=== PATIENT | female | born 1935 | race Caucasian/White ===

== ENCOUNTER 2018-07-04 15:03 | Observation (INO) ==
--- NOTE | 2018-07-04 15:26 | Emergency Department Note ---
Disposition Clinical Impression: Dizzy, Left leg pain, Left arm weakness Disposition: Admitted As Inpatient Condition: Fair Referrals: Timmy Isabel MD [Primary Care Provider] - Forms: ED Satisfaction Letter, Work/School Release Time of Disposition: 18:33 Dizziness HPI - General Chief Complaint: ED General Medical Stated Complaint: left side pain Time Seen by Provider: 07/04/18 15:20 Source: patient, EMS Mode of arrival: EMS Limitations: no limitations Nursing Notes Reviewed: Yes Vital Signs Reviewed: Yes - History of Present Illness HPI Narrative: 82-year-old female just emergency department complaining of left leg pain as we ll as left arm numbness and dizziness. Said these all started last night and has progressed throughout the day. Patient is normally bedbound is unable to walk normally does have history of stroke with right-sided deficits. She does have history of fibromyalgia as well as chronic pain. She normal takes Vicodin. Says she took one today that did not help with the left leg pain. Patient is been no changes in medications. She is currently dizziness as she spinning. Said it was coming gradual in onset beginning yesterday was not sudden in onset. She has noted no fevers or nausea or vomiting. Just complaining of generalized pain in dizziness. She describes the pain in her leg as 8 out of 10 dull throbbing ache not radiating and nothing makes it better. Movement does make it worse. Otherwise has no other completely to this time including no headaches, blurry vision, neck pain, back pain, fevers, chills, nausea, vomiting, chest pain, shortness of breath, abdominal pain, change in bowel monitor, pain with urination, pain or tingling going down the arms or legs or generalized weakness. - Related Data Home Medications Medication Instructions Recorded Confirmed Amlodipine [Norvasc] 5 mg PO DAILY 05/10/15 12/01/16 Docusate [Colace] 100 mg PO DAILY PRN 11/02/16 12/01/16 Baclofen [Lioresal] 10 mg PO BID 12/01/16 12/01/16 Celecoxib [Celebrex] 100 mg PO DAILY 12/01/16 12/01/16 Cholecalciferol (D-3) [Vitamin D] 5,000 unit PO BID 12/01/16 12/01/16 Cyclobenzaprine HCl 10 mg PO BID PRN 12/01/16 12/01/16 DULoxetine [Cymbalta] 30 mg PO DAILY 12/01/16 12/01/16 Esomeprazole Magnesium [Nexium] 40 mg PO DAILY 12/01/16 12/01/16 Levothyroxine [Synthroid] 150 mcg PO DAILY 12/01/16 12/01/16 PARoxetine HCl [Paroxetine HCl] 10 mg PO DAILY 12/01/16 12/01/16 Pregabalin [Lyrica] 150 mg PO BID 12/01/16 12/01/16 Solifenacin Succinate [Vesicare] 5 mg PO DAILY 12/01/16 12/01/16 Hydrocodone Bitartrate [Zohydro ER] 06/09/18 Previous Rx's Medication Instructions Recorded Aspirin 81 mg PO DAILY tab.chew 11/06/16 Lisinopril [Zestril] 20 mg PO DAILY #30 tablet 11/16/16 Allergies Allergy/AdvReac Type Severity Reaction Status Date / Time Iodinated Contrast- Oral and Allergy See Verified 11/02/16 12:33 IV Dye Comments [Iodinated Contrast Media - Oral and] All systems ED: reviewed and negative except as stated. Review of Systems: As Per HPI Past Medical History - Past Medical History Attestation: Yes The following information was validated with the patient. Source: patient Medical history: Reports: CHF, CVA, GERD, hypertension, osteoporosis, thyroid disease Surgical history: Reports: hysterectomy, other Psychiatric history: Reports: no psych history - Social History Smoking Status: Current every day smoker Smokeless Tobacco Status: No Alcohol use: Reports: none Drug use: Reports: none Physical Exam - General Limitations: no limitations General appearance: alert, in no apparent distress - Head Head exam: atraumatic, normocephalic, normal inspection - Eye Eye exam: Present: normal appearance, PERRL, EOMI - ENT ENT exam: normal exam, normal oropharynx, mucous membranes moist - Neck Neck exam: Present: normal inspection, full ROM, trachea midline - Chest Chest inspection: Present: normal inspection, symmetric chest wall rise - Respiratory Respiratory exam: Present: normal lung sounds bilaterally - Cardiovascular Cardiovascular exam: Present: regular rate, normal rhythm, normal heart sounds - Abdominal Exam Abdominal exam: Present: soft, Non-Tender, normal bowel sounds. Absent: tenderness, distention, guarding, rebound, rigidity - Extremities Exam Extremities exam: Present: normal inspection, full ROM, tenderness (Tenderness while palpating the left lower leg all a from the hip down to the foot.). Absent: pedal edema - Expanded Lower Extremity Exam Neurovascular/Tendon exam: Absent: motor deficit (Patient is able to move her left leg does not want to she says any movement makes it worse.), sensory de ficit, tendon deficit - Back Exam Back exam: Present: normal inspection, full ROM. Absent: tenderness - Neurological Exam Neurological exam: Present: alert, oriented X3, CN II-XII intact - Expanded Neurological Exam Patient oriented to: Present: person, place, time Speech: Present: fluid speech Cranial nerves: EOM function (II, III, IV, ): Normal, facial sensation (V): Normal, facial palsy (VII): Normal, spinal accessory function (XI): Normal, tongue deviation (XII): Normal Cerebellar function: finger to nose: Normal Motor strength - LUE: 3/5 Motor strength - RUE: 3/5 Motor strength - LLE: 3/5 Motor strength - RLE: 3/5 Upper motor neuron exam: melissa neglect: Absent bilaterally, pronator drift: Absent bilaterally Sensory exam upper extremity: light touch: Normal Sensory exam lower extremity: light touch: Normal Coma Scale Eye Opening: Spontaneous Coma Scale Motor Response: Obeys Commands Coma Scale Verbal Response: Oriented Coma Scale Total: 15 - Skin Skin exam: Present: warm, dry, intact, normal color Course Course Narrative: Patient has NIH is 0. We will get CT of her head as well as get a DVT study of her left leg I will get x-rays of the pelvis, femur, tib-fib. There is no noticeable deformities patient is alert and oriented 3. We have basic labs including CBC, BMP, troponin as well as an EKG and chest x-ray. Patient okay with this plan. Vital Signs Temperature 97.7 F 07/04/18 15:06 Pulse Rate 86 07/04/18 15:06 Respiratory Rate 16 07/04/18 15:06 Blood Pressure 125/69 07/04/18 15:06 O2 Sat by Pulse Oximetry 97 07/04/18 15:06 Temperature 97.7 F 07/04/18 15:06 Pulse Rate 86 07/04/18 15:06 Respiratory Rate 16 07/04/18 15:06 Blood Pressure 125/69 07/04/18 15:06 O2 Sat by Pulse Oximetry 97 07/04/18 15:06 Oxygen Delivery Oxygen Delivery Room Air Dizziness - MDM Narrative Medical decision making narrative: Patient here for dizziness as well as left leg pain. To get DVT study that was negative for blood clot in the left leg. Did get a head CT which only had chr onic changes. There was note of hydrocephalus but this was not change compared to old one. All labs are within normal limits there is no acute changes. No acute electrolyte abnormalities. Patient was given Tylenol for pain which did help take the pain away in the left leg. Patient NIH is 0. There were no stroke symptoms at this time patient was outside the window having a stroke alert. So we did not call them. Patient needs to be admitted for further stroke management and workup. Patient will be admitted to the hospitalist I spoke with Dr. Yi who agreed to admit the patient to their service for patient's admitted in stable condition. Chest X-Ray 07/04/18 15:21 IMPRESSION: No acute cardiopulmonary disease or significant interval change from prior study 12/01/2016. D/ / Christophe Agosto / Christophe Agosto Interpreting Provider: Christophe Agosto Head CT 07/04/18 15:21 IMPRESSION: 1. Ventriculomegaly, not appreciably changed dating back to 05/24/2012. This may be related to involutional changes, however, normal pressure hydrocephalus cannot be excluded. 2. Chronic microvascular white matter ischemic disease, unchanged. 3. No acute intracranial abnormality. 4. Chronic lacunar infarct along the right paramidline of the [place]. D/ / 07/04/2018 18:06:01 Alex George MD / [facility] Interpreting Provider: Alex George MD Femur X-Ray 07/04/18 15:24 IMPRESSION: 1. No evidence of acute fracture involving the pelvis, left femur, and left tibia and fibula. 2. Osteopenia. 3. No appreciable soft tissue swelling. 4. Given the degree of osteopenia, nondisplaced fractures may be radiographically occult. If pain or concern for hip fracture persists, consider MR imaging. D/ : / 07/04/2018 16:05:41 Alex George MD / [facility] Interpreting Provider: Alex George MD Pelvis X-Ray 07/04/18 15:24 IMPRESSION: 1. No evidence of acute fracture involving the pelvis, left femur, and left tibia and fibula. 2. Osteopenia. 3. No appreciable soft tissue swelling. 4. Given the degree of osteopenia, nondisplaced fractures may be radiographically occult. If pain or concern for hip fracture persists, consider MR imaging. D/ : / 07/04/2018 16:05:41 Alex George MD / [facility] Interpreting Provider: Alex George MD Tibia/Fibula X-Ray 07/04/18 15:24 IMPRESSION: 1. No evidence of acute fracture involving the pelvis, left femur, and left tibia and fibula. 2. Osteopenia. 3. No appreciable soft tissue swelling. 4. Given the degree of osteopenia, nondisplaced fractures may be radiographically occult. If pain or concern for hip fracture persists, consider MR imaging. D/ /04/2018 16:05:41 Alex George MD / [facility] Interpreting Provider: Alex George MD - Medical Records Medical records reviewed: Yes I reviewed the patient's medical records. - Lab Data Lab results reviewed: Yes I reviewed the patient's lab results. Result diagrams: 07/04/18 16:02 07/04/18 16:02 Lab Results 07/04/18 07/04/18 07/04/18 Range/Units 16:02 16:02 16:02 WBC 14.6 H (4.3-11.1) K/mcL RBC 4.37 (3.82-4.97) M/mcL Hgb 12.0 (11.5-15.4) g/dL Hct 36.1 (35.3-44.9) % MCV 82.6 L (83.0-100.0) fL MCH 27.5 L (28.0-33.3) pg MCHC 33.2 (31.6-35.5) g/dL RDW 13.5 (11.5-14.5) % Plt Count 265 (140-400) K/mcL MPV 11.5 (9.4-12.4) fL Immature Gran % 0.5 (0-4) % Seg Neutrophils % 61.0 % Lymphocytes % 30.7 % Monocytes % 6.2 % Eosinophils % 1.1 % Basophils % 0.5 % Neutrophils # 8.9 (1.6-8.9) K/mcL Lymphocytes # 4.5 (0.6-4.6) K/mcL Monocytes # 0.9 (0.0-1.3) K/mcL Eosinophils # 0.2 (0.0-0.6) K/mcL Basophils # 0.1 (0.0-0.2) K/mcL PT 11.3 (9.4-12.1) Seconds INR 1.0 Sodium 131 L (136-145) mEq/L Potassium 4.4 (3.5-5.1) mEq/L Chloride 96 L (98-107) mEq/L Carbon Dioxide 30 H (23-29) mEq/L BUN 12 (8-23) mg/dL Creatinine 1.05 (0.60-1.20) mg/dL Est GFR ( Amer) > 60 (> 60) Est GFR (Non-Af Amer) 50 L (> 60) BUN/Creatinine Ratio 11 (6-26) Glucose 98 (70-105) mg/dL Calculated Osmolality 272 L (280-300) Calcium 9.9 (8.6-10.3) mg/dL Troponin I < 0.03 (< 0.04) ng/mL Urine Color (Yellow) Urine Clarity (Clear) Urine pH (5.0-8.0) pH Units Ur Specific [place] (1.010-1.025) Urine Protein (Neg-Trace) mg/dL Urine Glucose (UA) (Normal) mg/dL Urine Ketones (Negative) mg/dL Urine Blood (Negative) Urine Nitrite (Negative) Urine Bilirubin (Negative) Urine Urobilinogen (Normal) mg/dL Ur Leukocyte Esterase (Negative) Ur Culture Indicated? (NO) 07/04/18 Range/Units 16:18 WBC (4.3-11.1) K/mcL RBC (3.82-4.97) M/mcL Hgb (11.5-15.4) g/dL Hct (35.3-44.9) % MCV (83.0-100.0) fL MCH (28.0-33.3) pg MCHC (31.6-35.5) g/dL RDW (11.5-14.5) % Plt Count (140-400) K/mcL MPV (9.4-12.4) fL Immature Gran % (0-4) % Seg Neutrophils % % Lymphocytes % % Monocytes % % Eosinophils % % Basophils % % Neutrophils # (1.6-8.9) K/mcL Lymphocytes # (0.6-4.6) K/mcL Monocytes # (0.0-1.3) K/mcL Eosinophils # (0.0-0.6) K/mcL Basophils # (0.0-0.2) K/mcL PT (9.4-12.1) Seconds INR Sodium (136-145) mEq/L Potassium (3.5-5.1) mEq/L Chloride (98-107) mEq/L Carbon Dioxide (23-29) mEq/L BUN (8-23) mg/dL Creatinine (0.60-1.20) mg/dL Est GFR ( Amer) (> 60) Est GFR (Non-Af Amer) (> 60) BUN/Creatinine Ratio (6-26) Glucose (70-105) mg/dL Calculated Osmolality (280-300) Calcium (8.6-10.3) mg/dL Troponin I (< 0.04) ng/mL Urine Color Yellow (Yellow) Urine Clarity Clear (Clear) Urine pH 6.5 (5.0-8.0) pH Units Ur Specific [place] 1.014 (1.010-1.025) Urine Protein Negative (Neg-Trace) mg/dL Urine Glucose (UA) Normal (Normal) mg/dL Urine Ketones Negative (Negative) mg/dL Urine Blood Negative (Negative) Urine Nitrite Negative (Negative) Urine Bilirubin Negative (Negative) Urine Urobilinogen Normal (Normal) mg/dL Ur Leukocyte Esterase Negative (Negative) Ur Culture Indicated? NO (NO) - Radiology Data Radiology results reviewed: Yes I reviewed the patient's radiology results. - EKG Data EKG attestation: Yes I reviewed and interpreted this EKG. EKG results narrative: EKG done at 1513 review myself and the attending shows sinus rhythm at a rate of 90, MI interval 164, QRS 137, QTC 441. There is no acute ST changes no acute T- wave changes no other signs of ischemia. No hypertrophy, harsh and, heart block. There are PVCs. No WPW/Brugada/HOCM. EKG is unchanged compared with old one done 12/01/16. NIH Stroke Scale - Level of Consciousness LOC: Alert - LOC Questions LOC Questions: Answers both correctly - LOC Commands LOC Commands: Performs both correctly - Best Gaze Best Gaze: Normal - Visual Visual: No visual loss - Facial Palsy Facial Palsy: Normal - Motor Arms Motor Arm-Left: No drift for 10 seconds Motor Arm-Right: No drift for 10 seconds - Motor Legs Motor Leg-Left: No drift for 5 seconds Motor Leg-Right: No drift for 5 seconds - Limb Ataxia Limb Ataxia: Normal, No Ataxia - Sensory Sensory: Normal - Best Language Best Language: No aphasia - Dysarthria Dysarthria: Normal - Extinction and Inattention Extinction and Inattention: Normal - NIHSS Total Score NIHSS Total Score: 0
--- NOTE | 2018-07-04 15:59 | Emergency Department Note ---
Disposition Clinical Impression: Dizzy, Left leg pain, Left arm weakness Disposition: Admitted As Inpatient Condition: Fair Referrals: Timmy Isabel MD [Primary Care Provider] - Forms: ED Satisfaction Letter, Work/School Release Time of Disposition: 18:40 General Adult HPI - General Chief complaint: ED General Medical Stated complaint: left side pain Time Seen by Provider: 07/04/18 15:20 Source: patient Limitations: no limitations - History of Present Illness Pain Scale: 4 - Related Data Home Medications Medication Instructions Recorded Confirmed Amlodipine [Norvasc] 5 mg PO DAILY 05/10/15 12/01/16 Docusate [Colace] 100 mg PO DAILY PRN 11/02/16 12/01/16 Baclofen [Lioresal] 10 mg PO BID 12/01/16 12/01/16 Celecoxib [Celebrex] 100 mg PO DAILY 12/01/16 12/01/16 Cholecalciferol (D-3) [Vitamin D] 5,000 unit PO BID 12/01/16 12/01/16 Cyclobenzaprine HCl 10 mg PO BID PRN 12/01/16 12/01/16 DULoxetine [Cymbalta] 30 mg PO DAILY 12/01/16 12/01/16 Esomeprazole Magnesium [Nexium] 40 mg PO DAILY 12/01/16 12/01/16 Levothyroxine [Synthroid] 150 mcg PO DAILY 12/01/16 12/01/16 PARoxetine HCl [Paroxetine HCl] 10 mg PO DAILY 12/01/16 12/01/16 Pregabalin [Lyrica] 150 mg PO BID 12/01/16 12/01/16 Solifenacin Succinate [Vesicare] 5 mg PO DAILY 12/01/16 12/01/16 Hydrocodone Bitartrate [Zohydro ER] 06/09/18 Previous Rx's Medication Instructions Recorded Aspirin 81 mg PO DAILY tab.chew 11/06/16 Lisinopril [Zestril] 20 mg PO DAILY #30 tablet 11/16/16 Allergies Allergy/AdvReac Type Severity Reaction Status Date / Time Iodinated Contrast- Oral and Allergy See Verified 11/02/16 12:33 IV Dye Comments [Iodinated Contrast Media - Oral and] Past Medical History - Past Medical History Medical history: Reports: CHF, CVA, GERD, hypertension, osteoporosis, thyroid disease Surgical history: Reports: hysterectomy, other Psychiatric history: Reports: no psych history - Social History Smoking Status: Current every day smoker Smokeless Tobacco Status: No Alcohol use: Reports: none Drug use: Reports: none Physical Exam - General Limitations: no limitations General appearance: alert, in no apparent distress Course Vital Signs Temperature 97.7 F 07/04/18 15:06 Pulse Rate 86 07/04/18 15:06 Respiratory Rate 16 07/04/18 15:06 Blood Pressure 125/69 07/04/18 15:06 O2 Sat by Pulse Oximetry 97 07/04/18 15:06 Temperature 97.7 F 07/04/18 15:06 Pulse Rate 86 07/04/18 15:06 Respiratory Rate 16 07/04/18 15:06 Blood Pressure 125/69 07/04/18 15:06 O2 Sat by Pulse Oximetry 97 07/04/18 15:06 Oxygen Delivery Oxygen Delivery Room Air Medical Decision Making - Lab Data Result diagrams: 07/04/18 16:02 07/04/18 16:02 Lab Results 07/04/18 07/04/18 07/04/18 Range/Units 16:02 16:02 16:02 WBC 14.6 H (4.3-11.1) K/mcL RBC 4.37 (3.82-4.97) M/mcL Hgb 12.0 (11.5-15.4) g/dL Hct 36.1 (35.3-44.9) % MCV 82.6 L (83.0-100.0) fL MCH 27.5 L (28.0-33.3) pg MCHC 33.2 (31.6-35.5) g/dL RDW 13.5 (11.5-14.5) % Plt Count 265 (140-400) K/mcL MPV 11.5 (9.4-12.4) fL Immature Gran % 0.5 (0-4) % Seg Neutrophils % 61.0 % Lymphocytes % 30.7 % Monocytes % 6.2 % Eosinophils % 1.1 % Basophils % 0.5 % Neutrophils # 8.9 (1.6-8.9) K/mcL Lymphocytes # 4.5 (0.6-4.6) K/mcL Monocytes # 0.9 (0.0-1.3) K/mcL Eosinophils # 0.2 (0.0-0.6) K/mcL Basophils # 0.1 (0.0-0.2) K/mcL PT 11.3 (9.4-12.1) Seconds INR 1.0 Sodium 131 L (136-145) mEq/L Potassium 4.4 (3.5-5.1) mEq/L Chloride 96 L (98-107) mEq/L Carbon Dioxide 30 H (23-29) mEq/L BUN 12 (8-23) mg/dL Creatinine 1.05 (0.60-1.20) mg/dL Est GFR ( Amer) > 60 (> 60) Est GFR (Non-Af Amer) 50 L (> 60) BUN/Creatinine Ratio 11 (6-26) Glucose 98 (70-105) mg/dL Calculated Osmolality 272 L (280-300) Calcium 9.9 (8.6-10.3) mg/dL Troponin I < 0.03 (< 0.04) ng/mL Urine Color (Yellow) Urine Clarity (Clear) Urine pH (5.0-8.0) pH Units Ur Specific [place] (1.010-1.025) Urine Protein (Neg-Trace) mg/dL Urine Glucose (UA) (Normal) mg/dL Urine Ketones (Negative) mg/dL Urine Blood (Negative) Urine Nitrite (Negative) Urine Bilirubin (Negative) Urine Urobilinogen (Normal) mg/dL Ur Leukocyte Esterase (Negative) Ur Culture Indicated? (NO) 07/04/18 Range/Units 16:18 WBC (4.3-11.1) K/mcL RBC (3.82-4.97) M/mcL Hgb (11.5-15.4) g/dL Hct (35.3-44.9) % MCV (83.0-100.0) fL MCH (28.0-33.3) pg MCHC (31.6-35.5) g/dL RDW (11.5-14.5) % Plt Count (140-400) K/mcL MPV (9.4-12.4) fL Immature Gran % (0-4) % Seg Neutrophils % % Lymphocytes % % Monocytes % % Eosinophils % % Basophils % % Neutrophils # (1.6-8.9) K/mcL Lymphocytes # (0.6-4.6) K/mcL Monocytes # (0.0-1.3) K/mcL Eosinophils # (0.0-0.6) K/mcL Basophils # (0.0-0.2) K/mcL PT (9.4-12.1) Seconds INR Sodium (136-145) mEq/L Potassium (3.5-5.1) mEq/L Chloride (98-107) mEq/L Carbon Dioxide (23-29) mEq/L BUN (8-23) mg/dL Creatinine (0.60-1.20) mg/dL Est GFR ( Amer) (> 60) Est GFR (Non-Af Amer) (> 60) BUN/Creatinine Ratio (6-26) Glucose (70-105) mg/dL Calculated Osmolality (280-300) Calcium (8.6-10.3) mg/dL Troponin I (< 0.04) ng/mL Urine Color Yellow (Yellow) Urine Clarity Clear (Clear) Urine pH 6.5 (5.0-8.0) pH Units Ur Specific [place] 1.014 (1.010-1.025) Urine Protein Negative (Neg-Trace) mg/dL Urine Glucose (UA) Normal (Normal) mg/dL Urine Ketones Negative (Negative) mg/dL Urine Blood Negative (Negative) Urine Nitrite Negative (Negative) Urine Bilirubin Negative (Negative) Urine Urobilinogen Normal (Normal) mg/dL Ur Leukocyte Esterase Negative (Negative) Ur Culture Indicated? NO (NO) Attestation Statement - Attestation Attestation: I examined this patient and my medical decision-making was reviewed with the Resident Physician. I agree with the documented findings, disposition and treatment plan as described except to the extent set forth below. Patient presents to the ED if she compared to left leg pain. Left arm weakness. Dizziness. Left leg pain is diffuse. She cannot localize it. She woke up like that today. She denies injury. She is bedbound at home. She had left arm weakness this morning but states that is resolved. She is also complaining of some dizziness and feels like she is spinning. On exam she is awake and alert in no distress. She is oriented. She has diffuse slight tenderness with no swelling or ecchymosis. Lungs are clear. Neuro exam is unremarkable. Her NIH is 0. Plan. Imaging of the leg with ultrasound. Basic labs. CT head. CT with nothing acute. No UTI. Patient is admitted for the dizziness and left arm weakness with concerns for TIA. Chest X-Ray 07/04/18 15:21 IMPRESSION: No acute cardiopulmonary disease or significant interval change from prior study 12/01/2016. D/ / Christophe Agosto / Christophe Agosto Interpreting Provider: Christophe Agosto Femur X-Ray 07/04/18 15:24 IMPRESSION: 1. No evidence of acute fracture involving the pelvis, left femur, and left tibia and fibula. 2. Osteopenia. 3. No appreciable soft tissue swelling. 4. Given the degree of osteopenia, nondisplaced fractures may be radiographically occult. If pain or concern for hip fracture persists, consider MR imaging. D/ : / 07/04/2018 16:05:41 Alex George MD / [facility] Interpreting Provider: Alex George MD Pelvis X-Ray 07/04/18 15:24 IMPRESSION: 1. No evidence of acute fracture involving the pelvis, left femur, and left tibia and fibula. 2. Osteopenia. 3. No appreciable soft tissue swelling. 4. Given the degree of osteopenia, nondisplaced fractures may be radiographically occult. If pain or concern for hip fracture persists, consider MR imaging. D/ /04/2018 16:05:41 Alex George MD / [facility] Interpreting Provider: Alex George MD Tibia/Fibula X-Ray 07/04/18 15:24
[2018-07-04] MEDS ORDERED: Acetaminophen 325 MG TABLET PO ONE (16:13)
[2018-07-04 16:25] LABS: Basophils # 0.1 K/mcL (0.0-0.2); Basophils % 0.5 %; Eosinophils # 0.2 K/mcL (0.0-0.6); Eosinophils % 1.1 %; Hematocrit 36.1 % (35.3-44.9); Immature Granulocytes % 0.5 % (0-4); Lymphocytes # 4.5 K/mcL (0.6-4.6); Lymphocytes % 30.7 %; Mean Corpuscular HGB Conc 33.2 g/dL (31.6-35.5); Mean Corpuscular Hemoglobin 27.5 pg (28.0-33.3); Mean Corpuscular Volume 82.6 fL (83.0-100.0); Mean Platelet Volume 11.5 fL (9.4-12.4); Monocytes # 0.9 K/mcL (0.0-1.3); Monocytes % 6.2 %; Neutrophils # 8.9 K/mcL (1.6-8.9); Platelet Count 265 K/mcL (140-400); Red Blood Count 4.37 M/mcL (3.82-4.97); Red Cell Distribution Width 13.5 % (11.5-14.5)
[2018-07-04 16:33] LABS: Prothrombin Time 11.3 Seconds (9.4-12.1)
[2018-07-04 16:46] LABS: BUN/Creatinine Ratio 11 (6-26); Blood Urea Nitrogen 12 mg/dL (8-23); Calcium 9.9 mg/dL (8.6-10.3); Carbon Dioxide 30 mEq/L (23-29); Chloride 96 mEq/L (98-107); Glucose 98 mg/dL (70-105); Osmolality,Calculated 272 (280-300); Potassium 4.4 mEq/L (3.5-5.1); Sodium 131 mEq/L (136-145); Troponin I < 0.03 ng/mL (< 0.04); eGFR For Non-African Americans 50 (> 60)
[2018-07-04 17:03] LABS: Bilirubin,Urine Negative (Negative); Blood,Urine Negative (Negative); Clarity,Urine Clear (Clear); Color,Urine Yellow (Yellow); Glucose,Urine (UA) Normal (Normal); Ketones,Urine Negative (Negative); Leukocyte Esterase,Urine Negative (Negative); Nitrite,Urine Negative (Negative); PH,Urine 6.5 pH Units (5.0-8.0); Protein,Urine Negative (Neg-Trace); Specific Gravity,Urine 1.014 (1.010-1.025); Urobilinogen,Urine Normal (Normal)
--- NOTE | 2018-07-04 19:49 | Internal Med History&Physical ---
Date of Encounter: 07/05/18 Time of Encounter: 19:49 Internal Medicine - H&P: HPI History of present illness: 82-year-old female with past medical history of a stroke with right sided with deficits and history of chronic pain and fibromyalgia who presented to the hospital with a main complaint of dull throbbing left leg pain associated with left arm numbness and dizziness. The patient is normally bedbound due to the history of CVA with residual neurological deficit. He also complain of g eneralized pain associated with dizziness. Evaluated by the ER staff and CAT scan of the head revealed entriculomegaly, not appreciably changed dating back to 05/24/2012. This may be related to involutional changes, however, normal pressure hydrocephalus cannot be excluded. Chronic microvascular white matter ischemic disease, unchanged. Chronic lacunar infarct along the right paramidline of the [place]. X-ray of the left leg revealed no significant abnormalities the patient was admitted for further evaluation and management Past Med Surg Social Fam HX - Past Medical History Medical history: CHF, CVA, GERD, hypertension, osteoporosis, thyroid disease Additional medical history: Lupus, Psychiatric history: no psych history - Past Surgical History Surgical History: hysterectomy, other Additional surgical history: per medical record - Social History Smoking Status: Current every day smoker Smokeless Tobacco Status: No Alcohol use: none Drug use: none - Family History Mother Hx Family Cardiac Disorders: Yes ([place]) Brother Hx Family Cancer: Yes (prostate) Internal Medicine - H&P: Meds Docusate [Colace] 100 mg PO DAILY PRN 11/02/16 [History] Aspirin 81 mg PO DAILY tab.chew 11/06/16 [Rx] Baclofen [Lioresal] 10 mg PO BID 12/01/16 [History] Celecoxib [Celebrex] 100 mg PO DAILY 12/01/16 [History] Cholecalciferol (D-3) [Vitamin D] 5,000 unit PO BID 12/01/16 [History] DULoxetine [Cymbalta] 30 mg PO DAILY 12/01/16 [History] Esomeprazole Magnesium [Nexium] 40 mg PO DAILY 12/01/16 [History] Levothyroxine [Synthroid] 150 mcg PO DAILY 12/01/16 [History] PARoxetine HCl [Paroxetine HCl] 10 mg PO DAILY 12/01/16 [History] Pregabalin [Lyrica] 150 mg PO BID 12/01/16 [History] Amlodipine Besylate 5 mg PO DAILY 07/04/18 [History] Buspirone HCl [Buspar] 5 mg PO BID 07/04/18 [History] Hydrocodone/Acetaminophen [[place] 10-325 Tablet] 1 tab PO Q6H PRN 07/04/18 [History] Lisinopril 2.5 mg PO DAILY 07/04/18 [History] Spironolactone 25 mg PO QAM 07/04/18 [History] Temazepam [Restoril] 30 mg PO HS 07/04/18 [History] Allergy/AdvReac Type Severity Reaction Status Date / Time Iodinated Contrast- Oral and Allergy See Verified 11/02/16 12:33 IV Dye Comments [Iodinated Contrast Media - Oral and] All Systems PM: A 10-system review of systems was performed and is negative for pertinent findings except as documented above in the HPI. - Constitutional Vitals: Temp Pulse Resp BP Pulse Ox 97.2 F L 91 16 121/74 97 07/04/18 19:11 07/04/18 19:11 07/04/18 19:17 07/04/18 19:17 07/04/18 19:11 Internal Med - H&P Results - Labs CBC & Chem 7: 07/05/18 03:11 07/05/18 03:11 Labs: Short CBC 07/04/18 Range/Units 16:02 WBC 14.6 H (4.3-11.1) K/mcL Hgb 12.0 (11.5-15.4) g/dL Hct 36.1 (35.3-44.9) % Plt Count 265 (140-400) K/mcL Neutrophils # 8.9 (1.6-8.9) K/mcL BMP 07/04/18 16:02 Sodium 131 L Potassium 4.4 Chloride 96 L Carbon Dioxide 30 H BUN 12 Creatinine 1.05 Glucose 98 Calcium 9.9 Cardiac Enzymes 07/04/18 Range/Units 16:02 Troponin I < 0.03 (< 0.04) ng/mL Urine 07/04/18 Range/Units 16:18 Urine Color Yellow (Yellow) Urine Clarity Clear (Clear) Urine pH 6.5 (5.0-8.0) pH Units Ur Specific [place] 1.014 (1.010-1.025) Urine Protein Negative (Neg-Trace) mg/dL Urine Glucose (UA) Normal (Normal) mg/dL - Impressions ITS Impressions Chest X-Ray 07/04/18 15:21 IMPRESSION: No acute cardiopulmonary disease or significant interval change from prior study 12/01/2016. D/ / Christophe Agosto / Christophe Agosto Interpreting Provider: Christophe Agosto Head CT 07/04/18 15:21 IMPRESSION: 1. Ventriculomegaly, not appreciably changed dating back to 05/24/2012. This may be related to involutional changes, however, normal pressure hydrocephalus cannot be excluded. 2. Chronic microvascular white matter ischemic disease, unchanged. 3. No acute intracranial abnormality. 4. Chronic lacunar infarct along the right paramidline of the [place]. D/ / 07/04/2018 18:06:01 Alex George [facility] [place] Interpreting Provider: Alex George MD Femur X-Ray 07/04/18 15:24 IMPRESSION: 1. No evidence of acute fracture involving the pelvis, left femur, and left tibia and fibula. 2. Osteopenia. 3. No appreciable soft tissue swelling. 4. Given the degree of osteopenia, nondisplaced fractures may be radiographically occult. If pain or concern for hip fracture persists, consider MR imaging. D/ / 07/04/2018 16:05:41 Alex George MD / [facility] Interpreting Provider: Alex George MD Pelvis X-Ray 07/04/18 15:24 IMPRESSION: 1. No evidence of acute fracture involving the pelvis, left femur, and left tibia and fibula. 2. Osteopenia. 3. No appreciable soft tissue swelling. 4. Given the degree of osteopenia, nondisplaced fractures may be radiographically occult. If pain or concern for hip fracture persists, consider MR imaging. D/ / 07/04/2018 16:05:41 Alex George MD / [facility] Interpreting Provider: Alex George MD Tibia/Fibula X-Ray 07/04/18 15:24 IMPRESSION: 1. No evidence of acute fracture involving the pelvis, left femur, and left tibia and fibula. 2. Osteopenia. 3. No appreciable soft tissue swelling. 4. Given the degree of osteopenia, nondisplaced fractures may be radiographically occult. If pain or concern for hip fracture persists, consider MR imaging. D/ /04/2018 16:05:41 Alex George MD / [facility] Interpreting Provider: Alex George MD - Assessment and plan (1) Left leg pain Current Visit: Yes Status: Acute Assessment and plan: -Leg pain pain appears to be with neurological nature, *Lumbar radiculopathy We will consult neurology for further evaluation and management (2) Hyponatremia Current Visit: No Status: Acute Assessment and plan: We will obtain urine osmolality serum osmolality and urine electrolytes (3) Hypothyroid Current Visit: No Status: Chronic Assessment and plan: We will continue home thyroxine Qualifiers: Hypothyroidism type: unspecified Qualified Code(s): E03.9 - Hypothyroidism, unspecified (4) Hypertension Current Visit: No Status: Chronic Assessment and plan: We will continue home medication Qualifiers: Hypertension type: essential hypertension Qualified Code(s): I10 - Essential (primary) hypertension (5) DVT prophylaxis Current Visit: Yes Status: Acute - Time Spent With Patient Total time spent is greater than 50% in coordination of care (as documented) at patient's floor/unit and/or counseling patient:
[2018-07-04] MEDS ORDERED: Acetaminophen 325 MG TABLET PO PRN (21:29)
[2018-07-04] MEDS ORDERED: Naloxone 0.4 MG/ML INJ IVP PRN (21:29)
[2018-07-04] MEDS: *HR* HYDROcodone/Acet 10/325 mg TABLET PO PRN (22:55)
[2018-07-05 03:48] LABS: Hematocrit 34.5 % (35.3-44.9); Hemoglobin 11.5 g/dL (11.5-15.4); Mean Corpuscular HGB Conc 33.3 g/dL (31.6-35.5); Mean Corpuscular Hemoglobin 27.9 pg (28.0-33.3); Mean Corpuscular Volume 83.7 fL (83.0-100.0); Mean Platelet Volume 11.6 fL (9.4-12.4); Platelet Count 256 K/mcL (140-400); Red Blood Count 4.12 M/mcL (3.82-4.97); Red Cell Distribution Width 13.4 % (11.5-14.5)
[2018-07-05 03:53] LABS: INR 0.9; Prothrombin Time 10.5 Seconds (9.4-12.1)
[2018-07-05 03:56] LABS: Activated Partial Thrombo Time 28.9 Seconds (26.0-36.0)
[2018-07-05 04:05] LABS: Alanine Aminotransferase 7 Units/L (7-52); Albumin 3.8 g/dL (3.5-5.7); Albumin/Globulin Ratio 1.7 (1.1-2.2); Alkaline Phosphatase 96 Units/L (34-104); Aspartate Amino Transferase 11 Units/L (13-39); BUN/Creatinine Ratio 14 (6-26); Bilirubin,Total 0.4 mg/dL (0.3-1.0); Blood Urea Nitrogen 11 mg/dL (8-23); Carbon Dioxide 27 mEq/L (23-29); Chloride 98 mEq/L (98-107); Cholesterol 152 mg/dL (< 200); Globulin 2.3 g/dL (2.4-3.5); Glucose 105 mg/dL (70-105); HDL Cholesterol 51 mg/dL (40-59); LDL Cholesterol,Calculated 85 mg/dL (0-99); Magnesium 1.7 mg/dL (1.6-2.6); Osmolality,Calculated 274 (280-300); Potassium 4.1 mEq/L (3.5-5.1); Sodium 132 mEq/L (136-145); Total Protein 6.1 g/dL (6.4-8.9); Triglycerides 82 mg/dL (< 150); eGFR For Non-African Americans > 60 (> 60)
[2018-07-05 04:14] LABS: Bilirubin,Urine Negative (Negative); Blood,Urine Negative (Negative); Clarity,Urine Clear (Clear); Color,Urine Yellow (Yellow); Glucose,Urine (UA) Normal (Normal); Ketones,Urine Trace mg/dL (Negative); Leukocyte Esterase,Urine Small (Negative); Nitrite,Urine Negative (Negative); Protein,Urine Negative (Neg-Trace); Urobilinogen,Urine Normal (Normal)
[2018-07-05 04:16] LABS: Bacteria,Urine None Seen per hpf (None-Few); Hyaline Casts,Urine None Seen per lpf (None-Few); Squamous Epithelial Cell,Urine Many per lpf (None-Few)
[2018-07-05 04:22] LABS: Potassium,Urine 37.2 mEq/L; Sodium, Urine 105.1 mEq/L
[2018-07-05] MEDS: Spironolactone 25 MG TABLET PO SCH (10:01)
[2018-07-05] MEDS: Cholecalciferol (D-3) 1,000 UNIT TABLET PO SCH ×2 (10:01→21:47)
[2018-07-05] MEDS: Baclofen 10 MG TABLET PO SCH ×2 (10:02→21:47)
[2018-07-05] MEDS: *HR* HYDROcodone/Acet 10/325 mg TABLET PO PRN ×2 (10:02→15:24)
[2018-07-05] MEDS: Celecoxib 100 MG CAPSULE PO SCH (10:02)
[2018-07-05] MEDS: amLODIPine 5 MG TABLET PO SCH (10:02)
[2018-07-05] MEDS: Pregabalin 75 MG CAPSULE PO SCH ×2 (10:03→21:46)
[2018-07-05] MEDS: Aspirin 81 MG TAB.CHEW PO SCH (10:03)
--- NOTE | 2018-07-05 11:46 | Internal Med Progress Note ---
Hospitalist Progress Note - Encounter Date of Encounter: 07/05/18 Time of Encounter: 11:43 - Exam Vitals: Temp Pulse Resp BP Pulse Ox 98.5 F 112 16 133/77 93 07/05/18 11:02 07/05/18 11:02 07/05/18 11:02 07/05/18 11:02 07/05/18 11:02 Exam: General appearance: Present: A&O X 3, pleasant, no acute distress - Head Head exam: Present: atraumatic, normocephalic - Eye Eye exam: Present: PERRL, conjuntiva pink, sclera anicteric Pupils: Present: PERRL - Neck Neck exam general surgery: Present: supple, trachea midline. Absent: lymphadenopathy - Respiratory Respiratory exam: Present: chest wall tenderness, CTAB. Absent: accessory muscle use, rales, rhonchi, wheezes - Cardiovascular Cardiovascular exam: Present: RRR, +S1, +S2. Absent: diastolic murmur, gallop, rubs, systolic murmur - GI/Abdominal GI/Abdominal exam: Present: normal bowel sounds, soft, no peritoneal signs. Absent: distended, tenderness - Extremities Exam Extremities exam: Present: warm, radial pulses palpable and symmetrical. Absent: calf tenderness, cyanotic, pedal edema. Left leg contracted; patient unable to straighten - Neurological Exam Neurological exam: Present: CN II-XII intact, oriented X3, no focal deficits. - Skin Skin exam: Sacral/coccyx wound not assessed. Dressing clean dry and intact. - Assessment and Plan (1) Left leg pain Current Visit: Yes Status: Acute Assessment and Plan: presented with severe left leg pain and inability to move left leg. Left femur, left tibia/fibula x-ray with no evidence of acute fracture involving the pelvis left femur or left tib/fib. X-ray did show severe osteopenia and nondisplaced fracture could not be excluded. Still having significant pain on 07/05 exam and inability to move left leg. Left lower extremity MRI pending (2) Hyponatremia Current Visit: No Status: Acute Assessment and Plan: mild; neurologically intact. Monitor repeat CMP (3) Hypothyroid Current Visit: No Status: Chronic Assessment and Plan: per hx. Cont home levothyroxine (4) Hypertension Current Visit: No Status: Chronic Assessment and Plan: per hx. BP controlled. Continue home BP medication - Time Spent with Patient Total time spent is greater than 50% in coordination of care (as documented) at patient's floor/unit and/or counseling patient: Internal Medicine: Result - Labs CBC & Chem 7: 07/05/18 03:11 07/05/18 03:11 Labs: Short CBC 07/04/18 07/05/18 Range/Units 16:02 03:11 WBC 14.6 H 11.3 H (4.3-11.1) K/mcL Hgb 12.0 11.5 (11.5-15.4) g/dL Hct 36.1 34.5 L (35.3-44.9) % Plt Count 265 256 (140-400) K/mcL Neutrophils # 8.9 (1.6-8.9) K/mcL BMP 07/04/18 07/05/18 16:02 03:11 Sodium 131 L 132 L Potassium 4.4 4.1 Chloride 96 L 98 Carbon Dioxide 30 H 27 BUN 12 11 Creatinine 1.05 0.81 Glucose 98 105 Calcium 9.9 10.0 Cardiac Enzymes 07/04/18 Range/Units 16:02 Troponin I < 0.03 (< 0.04) ng/mL Liver Function 07/05/18 Range/Units 03:11 Total Bilirubin 0.4 (0.3-1.0) mg/dL AST 11 L (13-39) Units/L ALT 7 (7-52) Units/L Alkaline Phosphatase 96 (34-104) Units/L Albumin 3.8 (3.5-5.7) g/dL Urine 07/04/18 07/05/18 Range/Units 16:18 04:00 Urine Color Yellow Yellow (Yellow) Urine Clarity Clear Clear (Clear) Urine pH 6.5 6.0 (5.0-8.0) pH Units Ur Specific [place] 1.014 1.020 (1.010-1.025) Urine Protein Negative Negative (Neg-Trace) mg/dL Urine Glucose (UA) Normal Normal (Normal) mg/dL - ABG Interpretation ABG results: PT/INR, D-dimer PT 10.5 Seconds (9.4-12.1) 07/05/18 03:11 - Impressions Impressions Chest X-Ray 07/04/18 15:21 IMPRESSION: No acute cardiopulmonary disease or significant interval change from prior study 12/01/2016. D/ / Christophe Agosto / Christophe Agosto Interpreting Provider: Christophe Agosto Head CT 07/04/18 15:21 IMPRESSION: 1. Ventriculomegaly, not appreciably changed dating back to 05/24/2012. This may be related to involutional changes, however, normal pressure hydrocephalus cannot be excluded. 2. Chronic microvascular white matter ischemic disease, unchanged. 3. No acute intracranial abnormality. 4. Chronic lacunar infarct along the right paramidline of the [place]. D/ / 07/04/2018 18:06:01 Alex George MD / [facility] Interpreting Provider: Alex George MD Femur X-Ray 07/04/18 15:24 IMPRESSION: 1. No evidence of acute fracture involving the pelvis, left femur, and left tibia and fibula. 2. Osteopenia. 3. No appreciable soft tissue swelling. 4. Given the degree of osteopenia, nondisplaced fractures may be radiographically occult. If pain or concern for hip fracture persists, consider MR imaging. D/ : / 07/04/2018 16:05:41 Alex George MD / [facility] Interpreting Provider: Alex George MD Pelvis X-Ray 07/04/18 15:24 IMPRESSION: 1. No evidence of acute fracture involving the pelvis, left femur, and left tibia and fibula. 2. Osteopenia. 3. No appreciable soft tissue swelling. 4. Given the degree of osteopenia, nondisplaced fractures may be radiographically occult. If pain or concern for hip fracture persists, consider MR imaging. D/ /04/2018 16:05:41 Alex George MD / bhakti brandt Interpreting Provider: Alex George MD Tibia/Fibula X-Ray 07/04/18 15:24 IMPRESSION: 1. No evidence of acute fracture involving the pelvis, left femur, and left tibia and fibula. 2. Osteopenia. 3. No appreciable soft tissue swelling. 4. Given the degree of osteopenia, nondisplaced fractures may be radiographically occult. If pain or concern for hip fracture persists, consider MR imaging. D/ / 07/04/2018 16:05:41 Alex George MD / [facility] Interpreting Provider: Alex George MD Consult Discharge Plan - Plan Referrals: Timmy Isabel MD [Primary Care Provider] - (3) Hypothyroid Qualifiers: Hypothyroidism type: unspecified Qualified Code(s): E03.9 - Hypothyroidism, unspecified (4) Hypertension Qualifiers: Hypertension type: essential hypertension Qualified Code(s): I10 - Essential (primary) hypertension
--- NOTE | 2018-07-05 17:43 | Neurology - Consult Note ---
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 She is previously seen and evaluated by Dr. Reese for this problem. He was not encouraging that she will ever be able to walk again, and this was back in September of this year. Since that time she has not made any improvements on this arising. She has been bedbound. I believe that the left upper and left lower extremity pain or due to mechanical factors. Is no evidence of an acute infarct. I did review her CT scan personally, I also reviewed the MRI scan of her cervical spine from 2017 personally. I do not believe at this juncture she is a good candidate for intraventricular shunt because she simply has a spinal cord injury and will not be able to walk anyway. I will would recommend management of her pain and comfort care. We will reevaluate your request. History of Present Illness HPI: Ms. 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 She is previously seen by my associate Dr. Reese for many of these problems. She has not walked in over a year. She has chronic left upper extremity pain secondary to a previous shoulder surgery. She seems to have contracture of the left leg at the knee. Dr. Reese felt this is likely secondary to long-standing effects of her cervical myelopathy. She did have a CT scan of the brain since admission reveals enlarged ventricles. This is been consistent and unchanged since 2011. The however is a question of normal pressure hydrocephalus in regard she would not be a good surgical candidate. She is alert she follows simple commands and answers simple questions, however she seems to have some mild difficulty with processing. Past Med Surg Social Fam HX - Past Medical History Medical history: CHF, CVA, GERD, hypertension, osteoporosis, thyroid disease Additional medical history: Lupus, Psychiatric history: no psych history - Past Surgical History Surgical History: hysterectomy, other Additional surgical history: per medical record - Social History Smoking Status: Current every day smoker Smokeless Tobacco Status: No Alcohol use: none Drug use: none - Family History Mother Hx Family Cardiac Disorders: Yes ([place]) Brother Hx Family Cancer: Yes (prostate) Medications and Allergies Docusate [Colace] 100 mg PO DAILY PRN 11/02/16 [History] Aspirin 81 mg PO DAILY tab.chew 11/06/16 [Rx] Baclofen [Lioresal] 10 mg PO BID 12/01/16 [History] Celecoxib [Celebrex] 100 mg PO DAILY 12/01/16 [History] Cholecalciferol (D-3) [Vitamin D] 5,000 unit PO BID 12/01/16 [History] DULoxetine [Cymbalta] 30 mg PO DAILY 12/01/16 [History] Esomeprazole Magnesium [Nexium] 40 mg PO DAILY 12/01/16 [History] Levothyroxine [Synthroid] 150 mcg PO DAILY 12/01/16 [History] PARoxetine HCl [Paroxetine HCl] 10 mg PO DAILY 12/01/16 [History] Pregabalin [Lyrica] 150 mg PO BID 12/01/16 [History] Amlodipine Besylate 5 mg PO DAILY 07/04/18 [History] Buspirone HCl [Buspar] 5 mg PO BID 07/04/18 [History] Hydrocodone/Acetaminophen [[place] 10-325 Tablet] 1 tab PO Q6H PRN 07/04/18 [History] Lisinopril 2.5 mg PO DAILY 07/04/18 [History] Spironolactone 25 mg PO QAM 07/04/18 [History] Temazepam [Restoril] 30 mg PO HS 07/04/18 [History] Allergy/AdvReac Type Severity Reaction Status Date / Time Iodinated Contrast- Oral and Allergy See Verified 11/02/16 12:33 IV Dye Comments [Iodinated Contrast Media - Oral and] All Systems: The remainder of the systems were reviewed and are negative Review of Systems: The balance of the systems review is negative. Physical Examination - Vital Signs Vital Signs: Initial Vital Signs Temp Pulse Resp BP Pulse Ox 97.7 F 86 16 125/69 97 07/04/18 15:06 07/04/18 15:06 07/04/18 15:06 07/04/18 15:06 07/04/18 15:06 - Exam Exam: General Examination: *CONSTITUTIONAL: Laying in bed resting quietly. *GENERAL APPEARANCE OF PATIENT appears healthy and well groomed *EYES: pupils equal, round, reactive to light and accommodation, conjunctiva clear without masses or ulcerations, fundi normal. *CARDIOVASCULAR no peripheral edema, distal temperature normal, dorsalis pedis pulses normal. Refer to vital signs Musculoskeletal: *GAIT AND STATION patient is currently unable to walk, she has been bedridden for more than a year now. She has contracture of the left leg at the knee. She has limited ability to move the left leg. She does have free range of motion to some extent of the left upper extremity. She is able to move the right arm and the right leg however right leg movement is limited as well. *ASSESSMENT OF MUSCLE STRENGTH IN THE UPPER AND LOWER EXTREMITIES left deltoid strength 2/5, left biceps strength 2/5, triceps strength 2/5, level vial inspector strength 3/5, the left lower extremity is partially flexed at the knee and the left hip. She has limited ability to move the left leg under her own volition. She is slightly more movement of the right upper and right lower extremity however does not really have functional strength. *MUSCLE TONE IN THE UPPER AND LOWER EXTREMITIES increased tone of the left leg. No involuntary movements are identified. Neurological: *ORIENTATION to time and place *RECURRENT AND REMOTE MEMORY intact *ATTENTION AND CONCENTRATION are normal *LANGUAGE FUNCTION no significant aphasia or dysarthia was noted. *FUND OF KNOWLEDGE aware of current events, past history, vocabulary *MENTAL attention span and concentration normal. *CN II optic fundi were normal, no papilledema noted. *CN III,IV, PERRLA extraocular eye movements were full, no nystagmus and no ptosis noted. *CN V shows normal sensation and jaw opens symmetrically. *CN VII shows normal facial movement symmetrically, upper and lower bilaterally. *CN VIII shows no significant hearing loss on examination in the office. *CN IX,,X palate elevated symmetrically and normal gag reflex was noted. *CN XI normal strength in the sternocleidomastoid muscles, symmetrical shoulder shrugging. *CN XII tongue protruded in the midline, with normal strength and movement. *SENSORY EXAMINATION pinprick sensation intact, and light touch(vibration sense). *REFLEXES: deep tendon reflexes absent of the left upper and left lower extremity, 2/4 the right upper extremity and right patellar. *CEREBELLAR TESTING normal finger to nose of the right upper extremity. *PAIN LEVEL 7/10 Results - Laboratory Findings CBC and BMP: 07/05/18 03:11 07/05/18 03:11 Abnormal lab findings: Abnormal lab results WBC 11.3 K/mcL (4.3-11.1) H 07/05/18 03:11 Hct 34.5 % (35.3-44.9) L 07/05/18 03:11 MCH 27.9 pg (28.0-33.3) L 07/05/18 03:11 Sodium 132 mEq/L (136-145) L 07/05/18 03:11 Serum Osmolality 276 mOsm/kg (280-300) L 07/04/18 21:55 Calculated Osmolality 274 (280-300) L 07/05/18 03:11 AST 11 Units/L (13-39) L 07/05/18 03:11 Serum Total Protein 6.1 g/dL (6.4-8.9) L 07/05/18 03:11 Globulin 2.3 g/dL (2.4-3.5) L 07/05/18 03:11 Urine Ketones Trace mg/dL (Negative) H 07/05/18 04:00 Ur Leukocyte Esterase Small (Negative) H 07/05/18 04:00 Urine Microscopic RBC 5-15 per hpf (0-3) H 07/05/18 04:00 Urine Microscopic WBC 3-5 per hpf (0-3) H 07/05/18 04:00 Ur Squamous Epith Cells Many per lpf (None-Few) H 07/05/18 04:00 Consult Discharge Plan - Plan Referrals: Timmy Isabel MD [Primary Care Provider] -
[2018-07-05] MEDS: Temazepam 15 MG CAPSULE PO SCH (21:47)
[2018-07-06 02:47] LABS: Hematocrit 34.1 % (35.3-44.9); Hemoglobin 11.4 g/dL (11.5-15.4); Mean Corpuscular HGB Conc 33.4 g/dL (31.6-35.5); Mean Corpuscular Hemoglobin 28.1 pg (28.0-33.3); Mean Platelet Volume 11.3 fL (9.4-12.4); Platelet Count 254 K/mcL (140-400); Red Blood Count 4.06 M/mcL (3.82-4.97); Red Cell Distribution Width 13.2 % (11.5-14.5)
[2018-07-06 03:03] LABS: BUN/Creatinine Ratio 16 (6-26); Blood Urea Nitrogen 13 mg/dL (8-23); Carbon Dioxide 24 mEq/L (23-29); Chloride 99 mEq/L (98-107); Glucose 100 mg/dL (70-105); Osmolality,Calculated 276 (280-300); Potassium 3.8 mEq/L (3.5-5.1); Sodium 133 mEq/L (136-145); eGFR For Non-African Americans > 60 (> 60)
[2018-07-06] MEDS: *HR* Enoxaparin 40 MG/0.4 ML SYRINGE SQ SCH (05:36)
[2018-07-06] MEDS: Pregabalin 75 MG CAPSULE PO SCH ×2 (08:13→20:23)
[2018-07-06] MEDS: *HR* HYDROcodone/Acet 10/325 mg TABLET PO PRN ×2 (08:13→20:32)
[2018-07-06] MEDS: amLODIPine 5 MG TABLET PO SCH (08:13)
[2018-07-06] MEDS: Celecoxib 100 MG CAPSULE PO SCH (08:14)
[2018-07-06] MEDS: Aspirin 81 MG TAB.CHEW PO SCH (08:14)
[2018-07-06] MEDS: Cholecalciferol (D-3) 1,000 UNIT TABLET PO SCH ×2 (08:14→20:23)
[2018-07-06] MEDS: Spironolactone 25 MG TABLET PO SCH (08:14)
[2018-07-06] MEDS: Baclofen 10 MG TABLET PO SCH ×2 (08:14→20:23)
--- NOTE | 2018-07-06 13:51 | Internal Med Progress Note ---
Hospitalist Progress Note - Encounter Date of Encounter: 07/06/18 Time of Encounter: 13:49 - Subjective Interval History: Seen and examined at bedside. Says she feels a little better today. Left leg pain is not as bad as it was yesterday and she can move it a little more. Called and updated daughter as well. Both patient and daughter are agreeable f or SNF at that is with therapy recommend - Exam Vitals: Temp Pulse Resp BP Pulse Ox 97.9 F 90 18 112/70 94 07/06/18 12:14 07/06/18 12:14 07/06/18 12:14 07/06/18 12:14 07/06/18 12:14 Exam: General appearance: Present: A&O X 3, pleasant, no acute distress - Head Head exam: Present: atraumatic, normocephalic - Eye Eye exam: Present: PERRL, conjuntiva pink, sclera anicteric Pupils: Present: PERRL - Neck Neck exam general surgery: Present: supple, trachea midline. Absent: lymphadenopathy - Respiratory Respiratory exam: Present: chest wall tenderness, CTAB. Absent: accessory muscle use, rales, rhonchi, wheezes - Cardiovascular Cardiovascular exam: Present: RRR, +S1, +S2. Absent: diastolic murmur, gallop, rubs, systolic murmur - GI/Abdominal GI/Abdominal exam: Present: normal bowel sounds, soft, no peritoneal signs. Absent: distended, tenderness - Extremities Exam Extremities exam: Present: warm, radial pulses palpable and symmetrical. Absent: calf tenderness, cyanotic, pedal edema. Left leg contracted; patient unable to straighten - Neurological Exam Neurological exam: Present: CN II-XII intact, oriented X3, no focal deficits. - Skin Skin exam: Sacral/coccyx wound not assessed. Dressing clean dry and intact. - Assessment and Plan (1) Cervical myelopathy Current Visit: No Status: Chronic Assessment and Plan: presented with severe left leg pain and inability to move left leg. Left femur, left tibia/fibula x-ray with no evidence of acute fracture involving the pelvis left femur or left tib/fib. X-ray did show severe osteopenia and nondisplaced fracture could not be excluded. Left lower extremity MRI nonacute. Pelvis MRI concerning for low-grade strains versus denervation versus myositis. 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 Patient has seen neurology in the past for similar symptoms. Patient not a good candidate for intraventricular shunt because of spinal cord injury would not be able to walk anyway. Continue with pain management. Ortho consult for evaluation of possible muscle strain. Pain and degree of range of motion improved on 07/06 exam (2) Left leg pain Current Visit: Yes Status: Acute Assessment and Plan: presented with severe left leg pain and inability to move left leg. Left femur, left tibia/fibula x-ray with no evidence of acute fracture involving the pelvis left femur or left tib/fib. LLE MRI concerning for intramuscular lipoma or focal IV infiltration/fat necrosis secondary to prior remote injury to the distal gastrocnemius muscle. Ortho consulted (3) Hyponatremia Current Visit: No Status: Acute Assessment and Plan: mild; neurologically intact. Monitor repeat CMP. (4) Hypothyroid Current Visit: No Status: Chronic Assessment and Plan: per hx. Cont home levothyroxine (5) Hypertension Current Visit: No Status: Chronic Assessment and Plan: per hx. BP controlled. Continue home BP medication DVT Prophylaxis: lovenox - Time Spent with Patient Total time spent is greater than 50% in coordination of care (as documented) at patient's floor/unit and/or counseling patient: Internal Medicine: Result - Labs CBC & Chem 7: 07/06/18 02:32 07/06/18 02:32 Labs: Short CBC 07/06/18 Range/Units 02:32 WBC 11.8 H (4.3-11.1) K/mcL Hgb 11.4 L (11.5-15.4) g/dL Hct 34.1 L (35.3-44.9) % Plt Count 254 (140-400) K/mcL BMP 07/06/18 02:32 Sodium 133 L Potassium 3.8 Chloride 99 Carbon Dioxide 24 BUN 13 Creatinine 0.81 Glucose 100 Calcium 10.0 - ABG Interpretation ABG results: PT/INR, D-dimer PT 10.5 Seconds (9.4-12.1) 07/05/18 03:11 - Impressions Impressions Lower Extremity MRI 07/05/18 11:48 IMPRESSION: Focal fat signal intensity within the distal gastrocnemius medially as above with differential considerations to include intramuscular lipoma or focus of focal fatty infiltration/fat necrosis possibly relating to prior remote injury/insult. Mild nonspecific subcutaneous edema about the ankle and into Kager's fat pad. Small tibiotalar and subtalar joint effusions. D/ / 07/05/2018 19:11:03 David Spears MD / darcie Interpreting Provider: David Spears MD Pelvis MRI 07/05/18 11:48 IMPRESSION: 1. Mild bilateral hip degenerative changes with trace effusions. 2. Severe multilevel degenerative changes of the visualized lower lumbar spine. 3. Mild nonspecific edema in the left proximal gluteal muscles, left proximal vastus muscles of the thigh, and left piriformis muscle. The differential includes low-grade strains versus denervation versus myositis. 4. Chronic low-grade strain of the right hamstring tendon origin. 5. Colonic diverticulosis. D/ / Elier Fritz MD / Elier Fritz MD Interpreting Provider: Elier Fritz MD Consult Discharge Plan - Plan Referrals: Timmy Isabel MD [Primary Care Provider] - (4) Hypothyroid Qualifiers: Hypothyroidism type: unspecified Qualified Code(s): E03.9 - Hypothyroidism, unspecified (5) Hypertension Qualifiers: Hypertension type: essential hypertension Qualified Code(s): I10 - Essential (primary) hypertension
[2018-07-06] MEDS: Temazepam 15 MG CAPSULE PO SCH (20:23)
[2018-07-07] MEDS: *HR* Enoxaparin 40 MG/0.4 ML SYRINGE SQ SCH (05:16)
[2018-07-07 05:48] LABS: Hematocrit 33.5 % (35.3-44.9); Hemoglobin 11.3 g/dL (11.5-15.4); Mean Corpuscular HGB Conc 33.7 g/dL (31.6-35.5); Mean Corpuscular Hemoglobin 27.8 pg (28.0-33.3); Mean Corpuscular Volume 82.5 fL (83.0-100.0); Mean Platelet Volume 11.8 fL (9.4-12.4); Platelet Count 244 K/mcL (140-400); Red Blood Count 4.06 M/mcL (3.82-4.97); Red Cell Distribution Width 13.2 % (11.5-14.5)
[2018-07-07 06:00] LABS: BUN/Creatinine Ratio 22 (6-26); Blood Urea Nitrogen 16 mg/dL (8-23); Calcium 10.2 mg/dL (8.6-10.3); Carbon Dioxide 27 mEq/L (23-29); Chloride 98 mEq/L (98-107); Glucose 76 mg/dL (70-105); Osmolality,Calculated 276 (280-300); Potassium 3.8 mEq/L (3.5-5.1); Sodium 133 mEq/L (136-145); eGFR For Non-African Americans > 60 (> 60)
[2018-07-07] MEDS: Cholecalciferol (D-3) 1,000 UNIT TABLET PO SCH (09:20)
[2018-07-07] MEDS: Aspirin 81 MG TAB.CHEW PO SCH (09:20)
[2018-07-07] MEDS: Pregabalin 75 MG CAPSULE PO SCH (09:20)
[2018-07-07] MEDS: amLODIPine 5 MG TABLET PO SCH (09:21)
[2018-07-07] MEDS: Baclofen 10 MG TABLET PO SCH (09:21)
[2018-07-07] MEDS: Spironolactone 25 MG TABLET PO SCH (09:21)
[2018-07-07] MEDS: Celecoxib 100 MG CAPSULE PO SCH (09:21)
--- NOTE | 2018-07-07 11:37 | Physician Discharge Referral ---
Home Health/Hosp Referral Info Transfer to: Home Health Provider in Charge Post Discharge: PCP - Diagnosis (1) Left leg pain Priority: Secondary Status: Acute (2) Cervical myelopathy Priority: Primary Status: Chronic (3) Hypertension Priority: Secondary Status: Chronic - Respiratory Orders Smoking Cessation: Smoking cessation has been advised. For more information, call the [place] Tobacco Quit Line at 9-506-AWNW-NOW. - Services Needed Following services are medically necessary services: Physical Therapy, Occupational Therapy - Transfer Medications Prescriptions: Pregabalin [Lyrica] 150 mg PO TID 30 Days #90 capsule Home Medications: Docusate [Colace] 100 mg PO DAILY PRN 11/02/16 [History] Aspirin 81 mg PO DAILY tab.chew 11/06/16 [Rx] Baclofen [Lioresal] 10 mg PO BID 12/01/16 [History] Celecoxib [Celebrex] 100 mg PO DAILY 12/01/16 [History] Cholecalciferol (D-3) [Vitamin D] 5,000 unit PO BID 12/01/16 [History] DULoxetine [Cymbalta] 30 mg PO DAILY 12/01/16 [History] Esomeprazole Magnesium [Nexium] 40 mg PO DAILY 12/01/16 [History] Levothyroxine [Synthroid] 150 mcg PO DAILY 12/01/16 [History] PARoxetine HCl [Paroxetine HCl] 10 mg PO DAILY 12/01/16 [History] Amlodipine Besylate 5 mg PO DAILY 07/04/18 [History] Buspirone HCl [Buspar] 5 mg PO BID 07/04/18 [History] Hydrocodone/Acetaminophen [[place] 10-325 Tablet] 1 tab PO Q6H PRN 07/04/18 [History] Lisinopril 2.5 mg PO DAILY 07/04/18 [History] Spironolactone 25 mg PO QAM 07/04/18 [History] Temazepam [Restoril] 30 mg PO HS 07/04/18 [History] Pregabalin [Lyrica] 150 mg PO TID 30 Days #90 capsule 07/07/18 [Rx] Allergies/Adverse Reactions: Allergy/AdvReac Type Severity Reaction Status Date / Time Iodinated Contrast- Oral and Allergy See Verified 11/02/16 12:33 IV Dye Comments [Iodinated Contrast Media - Oral and] Certification: Further, I certify that my clinical findings support that this patient is homebound (i.e. absences from home require considerable and taxing effort and are for medical reasons or [facility] or infrequently or short duration when for other reasons) because: Homebound Reason: Patient requires assistance of a person or device to safely leave home Attestation: My signature below is to certify that this patient is under my care and that I, or nurse practitioner, or a physician's engineer assistant working with me, has a [id number] encounter with this patient.
[2018-07-07 11:43] VITALS: BP 155/95
--- NOTE | 2018-07-07 11:53 | Discharge Summary ---
<Kiara Grant P - Last Filed: 07/07/18 12:42> - NOTES TO OUTPATIENT PROVIDER Notes to Outpatient Provider: *The patient will follow-up with primary care provider within a week. *The patient will follow-up with orthopedic doctor within 2 weeks. *We have increased the dose of Lyrica 150 mg TID. *We discha rged her with Home health advise. *The patient will follow-up with neurologist as needed, neurologist already consulted her while she was in hospital. Orders not resulted at time of discharge: Pending orders 07/08/18 04:00 BMP [Basic Metabolic Panel] AM 0400 Complete Blood Count w/o Diff [HEME] AM 0400 07/09/18 04:00 BMP [Basic Metabolic Panel] AM 0400 Complete Blood Count w/o Diff [HEME] AM 0400 07/10/18 04:00 BMP [Basic Metabolic Panel] AM 0400 Complete Blood Count w/o Diff [HEME] AM 0400 Date of Encounter: 07/07/18 Time of Encounter: 11:30 - Discharge Diagnosis (1) Cervical myelopathy Status: Chronic Assessment and Plan: The patient has severe cervical myelopathy with quardiparesis and she was admitted for left upper and lower limb pain and numbness, we consulted with neurologist and they recommended pain management and comfort care and will follow up in out patient follow-up as needed. We have [facility] and increased the dose of Lyrica 150 mg TID for pain and numbness in her limbs. (2) Left leg pain Priority: Primary Status: Acute Assessment and Plan: The patient was admitted for left leg numbness and tingling with pain , MRI pelvis showed ;Mild bilateral hip degenerative changes with trace effusions.Severe multilevel degenerative changes of the visualized lower lumbar spine. She will follow-up with orthopedic doctor in outpatient for her leg pain. (3) Hypertension Priority: Secondary Status: Chronic (4) Hypothyroid Priority: Secondary Status: Chronic Hospital course: Ms. Denny is a 82 year old female with past medical history of CHF, CVA, GERD, hypertension, osteoporosis, thyroid disease presented to ED for pain, numbess in left leg and left arm and feeling dizzy. The patient is bed bound because of she has had CVA with all 4 extremities weakness becuase of Cervical Myelopathy. . CT scan of head done in ED showed ventriculomegaly not appreciably changed dating back to 05/24 and chronic microvascular white matter ischemic disease. CT pelvis showed: Mild bilateral hip degenerative changes with trace effusions.Severe multilevel degenerative changes of the visualized lower lumbar spine. We admitted her for further workup regarding her left leg and arm numbness and pain. Neurologic consultation was done while she was on inpatient and recommended management of her pain and comfort care because she was a chronic patient of Cervical mylepathy and she has had symptoms on and off for long time.She is hemodynamically stable and symptomatically a little bit improved .So, we are planning discharge her with home health referral .we have increased the dose of Lyrica 150 MG 3 times a day and she will follow-up with primary care provider within a week and orthopedic doctor in 2 weeks for backache and leg leg pain and she will follow-up with neurologist as needed. - Time Spent with Patient Total time spent providing and/or coordinating discharge services: - Discharge Medications Prescriptions: RX: Pregabalin [Lyrica] 150 mg PO TID 30 Days #90 capsule Home Medications: RX: Docusate [Colace] 100 mg PO DAILY PRN 11/02/16 [History] RX: Aspirin 81 mg PO DAILY tab.chew 11/06/16 [Rx] RX: Baclofen [Lioresal] 10 mg PO BID 12/01/16 [History] RX: Celecoxib [Celebrex] 100 mg PO DAILY 12/01/16 [History] RX: Cholecalciferol (D-3) [Vitamin D] 5,000 unit PO BID 12/01/16 [History] RX: DULoxetine [Cymbalta] 30 mg PO DAILY 12/01/16 [History] RX: Esomeprazole Magnesium [Nexium] 40 mg PO DAILY 12/01/16 [History] RX: Levothyroxine [Synthroid] 150 mcg PO DAILY 12/01/16 [History] RX: PARoxetine HCl [Paroxetine HCl] 10 mg PO DAILY 12/01/16 [History] RX: Amlodipine Besylate 5 mg PO DAILY 07/04/18 [History] RX: Buspirone HCl [Buspar] 5 mg PO BID 07/04/18 [History] RX: Hydrocodone/Acetaminophen [[place] 10-325 Tablet] 1 tab PO Q6H PRN 07/04/18 [History] RX: Lisinopril 2.5 mg PO DAILY 07/04/18 [History] RX: Spironolactone 25 mg PO QAM 07/04/18 [History] RX: Temazepam [Restoril] 30 mg PO HS 07/04/18 [History] RX: Pregabalin [Lyrica] 150 mg PO TID 30 Days #90 capsule 07/07/18 [Rx] Allergies/Adverse Reactions: Allergy/AdvReac Type Severity Reaction Status Date / Time Iodinated Contrast- Oral and Allergy See Verified 11/02/16 12:33 IV Dye Comments [Iodinated Contrast Media - Oral and] Date of admission: 07/04/18 18:44 Primary care physician: Timmy Isabel MD Consults: 07/05/18 04:20 Consult to Neurology [CONS] Routine Consulting Provider: Neurology [facility] Reason for Consult: Left leg pain rule out lumbar radiculopathy Dizziness Time Notified: 04:20 Call Completed: No 07/05/18 11:49 PT [Consult to Physical Therapy] [CONS] Routine Comment: Evaluate, develop and implement POC Reason for Consult: Left leg pain, left leg contracture Does patient have active BEDREST order?: No Is patient medically & hemodynamically stable?: Yes 07/06/18 08:52 OT [Consult to Occupational Therapy] [CONS] Routine Comment: Evaluate, develop and implement POC Reason for Consult: left leg pain, non-ambulatory Does patient have active BEDREST order?: No Is patient medically & hemodynamically stable?: Yes - Constitutional Vitals: Temp Pulse Resp BP Pulse Ox 99.3 F 114 18 155/95 94 07/07/18 11:31 07/07/18 11:31 07/07/18 11:31 07/07/18 11:31 07/07/18 11:31 General appearance: Present: A&O X 3, no acute distress, answers questions appropriately Exam: General appearance: Present: A&O X 3, pleasant, no acute distress - Head Head exam: Present: atraumatic, normocephalic - Eye Eye exam: Present: PERRL, conjuntiva pink, sclera anicteric Pupils: Present: PERRL - Neck Neck exam general surgery: Present: supple, trachea midline. Absent: lymphadenopathy - Respiratory Respiratory exam: Present: chest wall tenderness, CTAB. Absent: accessory muscle use, rales, rhonchi, wheezes - Cardiovascular Cardiovascular exam: Present: RRR, +S1, +S2. Absent: diastolic murmur, gallop, rubs, systolic murmur - GI/Abdominal GI/Abdominal exam: Present: normal bowel sounds, soft, no peritoneal signs. Absent: distended, tenderness - Extremities Exam Extremities exam: Present: warm, radial pulses palpable and symmetrical. Absent: calf tenderness, cyanotic, pedal edema. Left leg contracted; patient unable to straighten - Neurological Exam Neurological exam: Present: CN II-XII intact, oriented X3, left deltoid strength 2/5, left biceps strength 2/5, triceps strength 2/5, bail bondsman strength 3/5, the left lower extremity is partially flexed at the knee and the left hip. She has limited ability to move the left leg under her own volition. She is slightly more movement of the right upper and right lower extremity however does not really have functional strength. - Skin Skin exam: Sacral/coccyx wound not assessed. Dressing clean dry and intact. - Patient Status Disposition: Home Health Service Condition: Fair - Discharge Instructions Follow Up With: Sammy Montano MD [Partnered Physician] - (Your appointment has been requested. Our offices will call you with an appointment time and date.) Timmy Isabel MD [Primary Care Provider] - (Hospital Follow up appointment has been requested. Our offices will call with an appointment time and date.) <Deborah Olmedo - Last Filed: 07/08/18 10:18> Orders not resulted at time of discharge: Pending orders 07/08/18 04:00 BMP [Basic Metabolic Panel] AM 0400 Complete Blood Count w/o Diff [HEME] AM 0400 07/09/18 04:00 BMP [Basic Metabolic Panel] AM 0400 Complete Blood Count w/o Diff [HEME] AM 0400 07/10/18 04:00 BMP [Basic Metabolic Panel] AM 0400 Complete Blood Count w/o Diff [HEME] AM 0400 Date of Encounter: 07/08/18 - Discharge Diagnosis (1) Left leg pain Status: Acute (2) Cervical myelopathy Status: Chronic (3) Hypertension Status: Chronic Qualifiers: Hypertension type: essential hypertension Qualified Code(s): I10 - Essential (primary) hypertension Hospital course: Ms. Denny is a 82 year old female - Time Spent with Patient Total time spent providing and/or coordinating discharge services: Date of admission: 07/04/18 18:44 Primary care physician: Timmy Isabel MD Consults: 07/05/18 04:20 Consult to Neurology [CONS] Routine Consulting Provider: Neurology [facility] Reason for Consult: Left leg pain rule out lumbar radiculopathy Dizziness Time Notified: 04:20 Call Completed: No 07/05/18 11:49 PT [Consult to Physical Therapy] [CONS] Routine Comment: Evaluate, develop and implement POC Reason for Consult: Left leg pain, left leg contracture Does patient have active BEDREST order?: No Is patient medically & hemodynamically stable?: Yes 07/06/18 08:52 OT [Consult to Occupational Therapy] [CONS] Routine Comment: Evaluate, develop and implement POC Reason for Consult: left leg pain, non-ambulatory Does patient have active BEDREST order?: No Is patient medically & hemodynamically stable?: Yes - Constitutional Vitals: Temp Pulse Resp BP Pulse Ox 99.3 F 114 18 155/95 94 07/07/18 11:31 07/07/18 11:31 07/07/18 11:31 07/07/18 11:31 07/07/18 11:31 - Attending Attestation I have performed a face- to face examination of this patient and participated in formulation of novoa components of Assessment and plan with the Resident. This is an 82-year-old female who has severe cervical myelopathy secondary to chronic degenerative changes almost causing quadriplegia. She has been seen by neurology for her leg pain, numbness and dizziness as well as diffuse weakness. They are not recommending any further management at this point. There was also a concern for hydrocephalus but as per neurology notes a [employer] shunt is not advisable given the patient's high surgical risk. She is going to be conservatively managed. Therapy has recommended [facility] facility but the patient has refused it and would like to go home with home PT and OT. We will arrange this in conjunction with care management and discharge the patient later on today. She will need to follow-up with outpatient neurology as well as orthopedics. Patient did have neuropathic pain in the left lower extremity and we will increase her Lyrica to 3 times a day at discharge. rest of the documentation as per resident note
[2018-07-07] MEDS: *HR* HYDROcodone/Acet 10/325 mg TABLET PO PRN (12:45)
[2018-07-07] MEDS ORDERED: Pregabalin 75 MG CAPSULE PO SCH (15:00)
--- NOTE | 2018-07-07 18:57 | Electrocardiograph Report ---
[address] [address] Test Date: 2018-07-04 Pat Name: Monserrat Denny Department: EXAM5 Room: 3B22 Gender: F Rack Puller: : [id number] Requested By: Moreno Serrano Order Number: [id number] Reading MD: Johnnie Nino Measurements Intervals [place] Rate: 90 P: 75 SD: 164 QRS: 10 QRSD: 137 T: 41 QT: 364 QTc: 441 Interpretive Statements Sinus rhythm Ventricular premature complex Nonspecific intraventricular conduction delay Electronically Signed On 07-07-2018 18:55:17 EST by Johnnie Nino
== END 2018-07-07 15:05 | disposition home health service (06) ==
LOC: 3BNU 15:03 → EMEROOARM 15:03 → SUATTDRO 18:44 → 3BNU 19:19
PROVIDERS: ADMIT Internal Medicine; ATTEND Internal Medicine

== ENCOUNTER 2018-08-01 17:07 | Inpatient (IN) ==
[2018-08-01 17:56] LABS: Hematocrit 34.6 % (35.3-44.9); Hemoglobin 11.7 g/dL (11.5-15.4); Mean Corpuscular HGB Conc 33.8 g/dL (31.6-35.5); Mean Corpuscular Hemoglobin 27.6 pg (28.0-33.3); Mean Corpuscular Volume 81.6 fL (83.0-100.0); Mean Platelet Volume 12.2 fL (9.4-12.4); Platelet Count 256 K/mcL (140-400); Red Blood Count 4.24 M/mcL (3.82-4.97); Red Cell Distribution Width 13.8 % (11.5-14.5)
[2018-08-01 18:03] LABS: INR 1.3; Prothrombin Time 14.4 Seconds (9.4-12.1)
[2018-08-01 18:12] LABS: Bilirubin,Urine Small (Negative); Blood,Urine Negative (Negative); Clarity,Urine Clear (Clear); Color,Urine Dark Yellow (Yellow); Glucose,Urine (UA) Normal (Normal); Ketones,Urine Trace mg/dL (Negative); Leukocyte Esterase,Urine Trace (Negative); Nitrite,Urine Negative (Negative); Protein,Urine Trace mg/dL (Neg-Trace); Specific Gravity,Urine 1.025 (1.010-1.025); Urobilinogen,Urine Normal (Normal)
[2018-08-01 18:15] LABS: Bacteria,Urine Many per hpf (None-Few); Hyaline Casts,Urine None Seen per lpf (None-Few); Squamous Epithelial Cell,Urine Many per lpf (None-Few)
[2018-08-01 18:17] LABS: Alanine Aminotransferase 8 Units/L (7-52); Albumin 3.2 g/dL (3.5-5.7); Albumin/Globulin Ratio 1.2 (1.1-2.2); Alkaline Phosphatase 83 Units/L (34-104); Aspartate Amino Transferase 11 Units/L (13-39); BUN/Creatinine Ratio 45 (6-26); Bilirubin,Total 0.5 mg/dL (0.3-1.0); Blood Urea Nitrogen 37 mg/dL (8-23); Carbon Dioxide 24 mEq/L (23-29); Chloride 101 mEq/L (98-107); Creatine Kinase 169 Units/L (30-223); Globulin 2.6 g/dL (2.4-3.5); Glucose 115 mg/dL (70-105); Magnesium 1.3 mg/dL (1.6-2.6); Osmolality,Calculated 294 (280-300); Phosphorous 2.5 mg/dL (2.7-4.5); Potassium 3.6 mEq/L (3.5-5.1); Sodium 137 mEq/L (136-145); Total Protein 5.8 g/dL (6.4-8.9); eGFR For Non-African Americans > 60 (> 60)
--- NOTE | 2018-08-01 18:17 | Emergency Department Note ---
Disposition Clinical Impression: Weakness, Cellulitis, Decubital ulcer Disposition: Still a Patient Condition: Fair Referrals: NONE,PCP [Primary Care Provider] - Time of Disposition: 19:00 General Adult HPI - General Chief complaint: ED General Medical Stated complaint: Failure to thrive Time Seen by Provider: 08/01/18 17:11 Source: patient Mode of arrival: ambulatory Limitations: no limitations Nursing Notes Reviewed: Yes Vital Signs Reviewed: Yes - History of Present Illness HPI Narrative: Patient presents emergency room via ambulance for evaluation of generalized malaise and weakness. Family was concerned about possible complaint of chest pain. Patient is not describing any chest pain on arrival. She is describing back pain. She denies any recent illnesses falls trauma or injury. She has been given her primary care by her daughter at home. Has no other symptoms or complaints at this time. 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 Radiation: non-radiation Pain Severity: mild Pain Scale: 4 Quality: aching Consistency: constant Improves with: nothing Worsens with: nothing Associated symptoms: Reports: denies other symptoms Treatments Prior to Arrival: none - Related Data Home Medications Medication Instructions Recorded Confirmed Docusate [Colace] 100 mg PO DAILY PRN 11/02/16 07/04/18 Baclofen [Lioresal] 10 mg PO BID 12/01/16 07/04/18 Celecoxib [Celebrex] 100 mg PO DAILY 12/01/16 07/04/18 Cholecalciferol (D-3) [Vitamin D] 5,000 unit PO BID 12/01/16 07/04/18 DULoxetine [Cymbalta] 30 mg PO DAILY 12/01/16 07/04/18 Esomeprazole Magnesium [Nexium] 40 mg PO DAILY 12/01/16 07/04/18 Levothyroxine [Synthroid] 150 mcg PO DAILY 12/01/16 07/04/18 PARoxetine HCl [Paroxetine HCl] 10 mg PO DAILY 12/01/16 07/04/18 Amlodipine Besylate 5 mg PO DAILY 07/04/18 07/04/18 Buspirone HCl [Buspar] 5 mg PO BID 07/04/18 07/04/18 Hydrocodone/Acetaminophen [[place] 1 tab PO Q6H PRN 07/04/18 07/04/18 10-325 Tablet] Lisinopril 2.5 mg PO DAILY 07/04/18 07/04/18 Spironolactone 25 mg PO QAM 07/04/18 07/04/18 Temazepam [Restoril] 30 mg PO HS 07/04/18 07/04/18 Previous Rx's Medication Instructions Recorded Aspirin 81 mg PO DAILY tab.chew 11/06/16 Pregabalin [Lyrica] 150 mg PO TID 30 Days #90 capsule 07/07/18 Allergies Allergy/AdvReac Type Severity Reaction Status Date / Time Iodinated Contrast- Oral and Allergy See Verified 11/02/16 12:33 IV Dye Comments [Iodinated Contrast Media - Oral and] All systems ED: reviewed and negative except as stated. Review of Systems: As Per HPI Constitutional: Denies: fever, chills, weakness Eyes: Denies: eye pain, eye discharge ENT ED: Denies: ear pain Cardiovascular: Denies: chest pain, palpitations, dyspnea on exertion, orthopnea, edema Respiratory: Denies: cough, dyspnea, wheezes, hemoptysis Gastrointestinal: Denies: abdominal pain, nausea, vomiting, diarrhea, constipation Genitourinary: Denies: urgency, dysuria, frequency Musculoskeletal: Reports: back pain. Denies: neck pain Integumentary: Denies: rash, abrasion, lesions Neurological: Denies: headache Psychiatric: Denies: anxiety Past Medical History - Past Medical History Attestation: Yes The following information was validated with the patient. Source: patient Medical history: Reports: CHF, CVA, GERD, hypertension, osteoporosis, thyroid disease Surgical history: Reports: hysterectomy, other Psychiatric history: Reports: no psych history - Social History Smoking Status: Current every day smoker Smokeless Tobacco Status: No Alcohol use: Reports: none Drug use: Reports: none Physical Exam - General Limitations: no limitations General appearance: alert, in no apparent distress - Head Head exam: atraumatic, normocephalic, normal inspection - ENT ENT exam: normal exam, normal oropharynx, mucous membranes moist - Neck Neck exam: Present: normal inspection, full ROM, trachea midline - Chest Chest inspection: Present: normal inspection, symmetric chest wall rise - Respiratory Respiratory exam: Present: normal lung sounds bilaterally - Cardiovascular Cardiovascular exam: Present: regular rate, normal rhythm, normal heart sounds - Abdominal Exam Abdominal exam: Present: soft, Non-Tender, normal bowel sounds. Absent: tenderness, distention, guarding, rebound, rigidity - Extremities Exam Extremities exam: Present: normal inspection, full ROM, normal capillary refill. Absent: tenderness - Back Exam Back exam: Present: normal inspection, other - Neurological Exam Neurological exam: Present: alert, oriented X3, CN II-XII intact, normal gait - Skin Skin exam: Present: warm, dry, intact, normal color Course Course Narrative: Patient seen and examined the time of arrival. See history of present illness. 82-year-old female presents emergency room at the request of family for evaluation of generalized malaise. Aside. According to the family she is describing chest pain. After discussion with the patient on arrival she is actually describing back pain. There is also some concern for possible neurologic issues. Patient does not show any neurologic issues at this time. She is alert she answers questions. She moves her extremities. She knows where she is at. Head is atraumatic. Lungs are clear. Heart is regular. Abdomen is soft. No guarding no rigidity. Extremities are stable. The patient had the diaper removed and the ulcers on her backside are evaluated. She has large excoriations and skin breakdown over the gluteal classes into the posterior aspect of the back. There is dark discoloration of the skin. No visible signs of bone at this time. Oleary catheter will be placed. CBC chemistry troponin labs were ordered. CT imaging the abdomen, CT the head, chest x-ray will be addressed. Fluids nausea medication will begin. Antibiotic regimen will be started as needed to cover for skin related infection the back. No other acute findings noted during his physical exam and treatment course. - Reevaluation(s) Reevaluation #1: CT the head is unremarkable. Chest x-ray stable. Labs show significantly elevated white blood cell count. Patient has a slightly elevated troponin at 0.04. CT imaging the abdomen is still pending. Disposition will be determined. Urinalysis does not show any acute signs of infection. Vancomycin was ordered for antibiotic regiment against skin related infection. Time: 18:42 Reevaluation #2: Patient will be signed out to the overnight physician Dr. Lockett to follow up on CT imaging of the abdomen and then admission process. Patient is otherwise stable. No other acute issues noted this time. Time: 18:59 Vital Signs Temperature 98.9 F 08/01/18 17:51 Pulse Rate 125 08/01/18 17:51 Respiratory Rate 14 01/25/19 17:51 Blood Pressure 94/63 08/01/18 17:51 O2 Sat by Pulse Oximetry 100 08/01/18 17:51 Temperature 98.9 F 08/01/18 17:51 Pulse Rate 125 08/01/18 17:51 Respiratory Rate 14 08/01/18 17:51 Blood Pressure 94/63 08/01/18 17:51 O2 Sat by Pulse Oximetry 100 08/01/18 17:51 Oxygen Delivery Oxygen Delivery Room Air,Nasal Cannula Medical Decision Making - MDM Narrative Medical decision making narrative: Generalized weakness, decubitus ulcer, elevated white blood cell count, cellulitis - Medical Records Medical records reviewed: Yes I reviewed the patient's medical records. - Lab Data Lab results reviewed: Yes I reviewed the patient's lab results. Result diagrams: 08/01/18 17:42 Lab Results 08/01/18 08/01/18 08/01/18 Range/Units 17:42 17:42 17:42 WBC 39.5 H* (4.3-11.1) K/mcL RBC 4.24 (3.82-4.97) M/mcL Hgb 11.7 (11.5-15.4) g/dL Hct 34.6 L (35.3-44.9) % MCV 81.6 L (83.0-100.0) fL MCH 27.6 L (28.0-33.3) pg MCHC 33.8 (31.6-35.5) g/dL RDW 13.8 (11.5-14.5) % Plt Count 256 (140-400) K/mcL MPV 12.2 (9.4-12.4) fL PT 14.4 H (9.4-12.1) Seconds INR 1.3 Lactic Acid 1.4 (0.5-2.2) mmol/L - Radiology Data Radiology results reviewed: Yes I reviewed the patient's radiology results. Chest x-ray is unremarkable. CT imaging the head is negative. - EKG Data EKG #1 EKG attestation: Yes I reviewed and interpreted this EKG. EKG results narrative: Sinus tachycardia noted. Heart rate of 118. MI interval 139. QRS duration of 74. QTC of 487. Hines appears to be normal. No acute signs of ST segment elevation or abnormality. No acute signs of WPW. EKG appears to be similar in comparison to 07/04/18. No acute signs of ST segment elevation or abnormality.
[2018-08-01 18:23] LABS: Lymphocytes # 3.6 K/mcL (0.6-4.6); Monocytes # 0.8 K/mcL (0.0-1.3); Neutrophils # 35.2 K/mcL (1.6-8.9)
[2018-08-01 18:24] LABS: Hypersegmented Neutrophils Present (Not Present); Platelet Estimate Normal (Normal)
[2018-08-01 18:25] LABS: RBC,Urine 0-3 per hpf (0-3)
[2018-08-01 18:29] LABS: Thyroid Stimulating Hormone 0.028 mcIU/mL (0.340-5.600)
[2018-08-01 18:30] LABS: Troponin I 0.04 ng/mL (< 0.04)
[2018-08-01] MEDS ORDERED: Aspirin 81 MG TAB.CHEW PO STA (18:38)
[2018-08-01] MEDS ORDERED: 0.9 % Sodium Chloride 1,000 ML IVC ONE (18:46)
--- NOTE | 2018-08-01 19:52 | Emergency Department Note ---
Disposition Clinical Impression: Weakness Cellulitis Qualifiers: Site of cellulitis: buttock Qualified Code(s): L03.317 - Cellulitis of buttock Decubital ulcer Qualifiers: Pressure injury location: sacral region Pressure injury stage: unspecified pressure injury stage Qualified Code(s): L89.159 - Pressure ulcer of sacral region, unspecified stage Sepsis Qualifiers: Sepsis type: sepsis due to unspecified organism Qualified Code(s): A41.9 - Sepsis, unspecified organism Disposition: Admitted As Inpatient Condition: Fair Time of Disposition: 20:07 General Adult HPI - General Chief complaint: ED General Medical Stated complaint: Failure to thrive Time Seen by Provider: 08/01/18 17:11 Source: patient Mode of arrival: ambulatory Limitations: no limitations - History of Present Illness Location: back Pain Scale: 4 Quality: aching Improves with: nothing Worsens with: nothing Associated symptoms: Reports: denies other symptoms Treatments Prior to Arrival: none - Related Data Home Medications Medication Instructions Recorded Confirmed Docusate [Colace] 100 mg PO DAILY PRN 11/02/16 07/04/18 Baclofen [Lioresal] 10 mg PO BID 12/01/16 07/04/18 Celecoxib [Celebrex] 100 mg PO DAILY 12/01/16 07/04/18 Cholecalciferol (D-3) [Vitamin D] 5,000 unit PO BID 12/01/16 07/04/18 DULoxetine [Cymbalta] 30 mg PO DAILY 12/01/16 07/04/18 Esomeprazole Magnesium [Nexium] 40 mg PO DAILY 12/01/16 07/04/18 Levothyroxine [Synthroid] 150 mcg PO DAILY 12/01/16 07/04/18 PARoxetine HCl [Paroxetine HCl] 10 mg PO DAILY 12/01/16 07/04/18 Amlodipine Besylate 5 mg PO DAILY 07/04/18 07/04/18 Buspirone HCl [Buspar] 5 mg PO BID 07/04/18 07/04/18 Hydrocodone/Acetaminophen [[place] 1 tab PO Q6H PRN 07/04/18 07/04/18 10-325 Tablet] Lisinopril 2.5 mg PO DAILY 07/04/18 07/04/18 Spironolactone 25 mg PO QAM 07/04/18 07/04/18 Temazepam [Restoril] 30 mg PO HS 07/04/18 07/04/18 Previous Rx's Medication Instructions Recorded Aspirin 81 mg PO DAILY tab.chew 11/06/16 Pregabalin [Lyrica] 150 mg PO TID 30 Days #90 capsule 07/07/18 Allergies Allergy/AdvReac Type Severity Reaction Status Date / Time Iodinated Contrast- Oral and Allergy See Verified 11/02/16 12:33 IV Dye Comments [Iodinated Contrast Media - Oral and] Constitutional: Denies: fever, chills, weakness Eyes: Denies: eye pain, eye discharge ENT ED: Denies: ear pain Cardiovascular: Denies: chest pain, palpitations, dyspnea on exertion, ortho pnea, edema Respiratory: Denies: cough, dyspnea, wheezes, hemoptysis Gastrointestinal: Denies: abdominal pain, nausea, vomiting, diarrhea, constipation Genitourinary: Denies: urgency, dysuria, frequency Musculoskeletal: Reports: back pain. Denies: neck pain Integumentary: Denies: rash, abrasion, lesions Neurological: Denies: headache Psychiatric: Denies: anxiety Past Medical History - Past Medical History Medical history: Reports: CHF, CVA, GERD, hypertension, osteoporosis, thyroid disease Surgical history: Reports: hysterectomy, other Psychiatric history: Reports: no psych history - Social History Smoking Status: Current every day smoker Smokeless Tobacco Status: No Alcohol use: Reports: none Drug use: Reports: none Physical Exam - General Limitations: no limitations General appearance: alert, in no apparent distress Course Vital Signs Temperature 98.9 F 08/01/18 17:51 Pulse Rate 125 08/01/18 17:51 Respiratory Rate 14 08/01/18 17:51 Blood Pressure 94/63 08/01/18 17:51 O2 Sat by Pulse Oximetry 100 08/01/18 17:51 Temperature 98.9 F 08/01/18 17:51 Pulse Rate 124 08/01/18 18:39 Respiratory Rate 19 08/01/18 18:39 Blood Pressure 101/60 08/01/18 18:39 O2 Sat by Pulse Oximetry 100 08/01/18 18:39 Oxygen Delivery Oxygen Delivery Room Air Medical Decision Making - Lab Data Result diagrams: 08/01/18 17:42 08/01/18 17:42 Lab Results 08/01/18 08/01/18 08/01/18 Range/Units 17:42 17:42 17:42 WBC 39.5 H* (4.3-11.1) K/mcL RBC 4.24 (3.82-4.97) M/mcL Hgb 11.7 (11.5-15.4) g/dL Hct 34.6 L (35.3-44.9) % MCV 81.6 L (83.0-100.0) fL MCH 27.6 L (28.0-33.3) pg MCHC 33.8 (31.6-35.5) g/dL RDW 13.8 (11.5-14.5) % Plt Count 256 (140-400) K/mcL MPV 12.2 (9.4-12.4) fL Seg Neutrophils % 85.0 % Band Neutrophils % 4.0 (0-4) % Lymphocytes % 9.0 % Monocytes % 2.0 % Neutrophils # 35.2 H (1.6-8.9) K/mcL Lymphocytes # 3.6 (0.6-4.6) K/mcL Monocytes # 0.8 (0.0-1.3) K/mcL Hypersegmented Neuts Present A (Not Present) Platelet Estimate Normal (Normal) PT 14.4 H (9.4-12.1) Seconds INR 1.3 Sodium 137 (136-145) mEq/L Potassium 3.6 (3.5-5.1) mEq/L Chloride 101 (98-107) mEq/L Carbon Dioxide 24 (23-29) mEq/L BUN 37 H (8-23) mg/dL Creatinine 0.83 (0.60-1.20) mg/dL Est GFR ( Amer) > 60 (> 60) Est GFR (Non-Af Amer) > 60 (> 60) BUN/Creatinine Ratio 45 H (6-26) Glucose 115 H (70-105) mg/dL Calculated Osmolality 294 (280-300) Lactic Acid (0.5-2.2) mmol/L Calcium 10.0 (8.6-10.3) mg/dL Phosphorus 2.5 L (2.7-4.5) mg/dL Magnesium 1.3 L (1.6-2.6) mg/dL Total Bilirubin 0.5 (0.3-1.0) mg/dL AST 11 L (13-39) Units/L ALT 8 (7-52) Units/L Alkaline Phosphatase 83 (34-104) Units/L Creatine Kinase 169 (30-223) Units/L Troponin I 0.04 H* (< 0.04) ng/mL Serum Total Protein 5.8 L (6.4-8.9) g/dL Albumin 3.2 L (3.5-5.7) g/dL Globulin 2.6 (2.4-3.5) g/dL Albumin/Globulin Ratio 1.2 (1.1-2.2) TSH 0.028 L (0.340-5.600) mcIU/mL Urine Color (Yellow) Urine Clarity (Clear) Urine pH (5.0-8.0) pH Units Ur Specific [place] (1.010-1.025) Urine Protein (Neg-Trace) mg/dL Urine Glucose (UA) (Normal) mg/dL Urine Ketones (Negative) mg/dL Urine Blood (Negative) Urine Nitrite (Negative) Urine Bilirubin (Negative) Urine Urobilinogen (Normal) mg/dL Ur Leukocyte Esterase (Negative) Urine Microscopic RBC (0-3) per hpf Urine Microscopic WBC (0-3) per hpf Ur Squamous Epith Cells (None-Few) per lpf Urine Bacteria (None-Few) per hpf Hyaline Casts (None-Few) per lpf Ur Culture Indicated? (NO) 08/01/18 08/01/18 Range/Units 17:42 18:00 WBC (4.3-11.1) K/mcL RBC (3.82-4.97) M/mcL Hgb (11.5-15.4) g/dL Hct (35.3-44.9) % MCV (83.0-100.0) fL MCH (28.0-33.3) pg MCHC (31.6-35.5) g/dL RDW (11.5-14.5) % Plt Count (140-400) K/mcL MPV (9.4-12.4) fL Seg Neutrophils % % Band Neutrophils % (0-4) % Lymphocytes % % Monocytes % % Neutrophils # (1.6-8.9) K/mcL Lymphocytes # (0.6-4.6) K/mcL Monocytes # (0.0-1.3) K/mcL Hypersegmented Neuts (Not Present) Platelet Estimate (Normal) PT (9.4-12.1) Seconds INR Sodium (136-145) mEq/L Potassium (3.5-5.1) mEq/L Chloride (98-107) mEq/L Carbon Dioxide (23-29) mEq/L BUN (8-23) mg/dL Creatinine (0.60-1.20) mg/dL Est GFR ( Amer) (> 60) Est GFR (Non-Af Amer) (> 60) BUN/Creatinine Ratio (6-26) Glucose (70-105) mg/dL Calculated Osmolality (280-300) Lactic Acid 1.4 (0.5-2.2) mmol/L Calcium (8.6-10.3) mg/dL Phosphorus (2.7-4.5) mg/dL Magnesium (1.6-2.6) mg/dL Total Bilirubin (0.3-1.0) mg/dL AST (13-39) Units/L ALT (7-52) Units/L Alkaline Phosphatase (34-104) Units/L Creatine Kinase (30-223) Units/L Troponin I (< 0.04) ng/mL Serum Total Protein (6.4-8.9) g/dL Albumin (3.5-5.7) g/dL Globulin (2.4-3.5) g/dL Albumin/Globulin Ratio (1.1-2.2) TSH (0.340-5.600) mcIU/mL Urine Color Dark Yellow (Yellow) Urine Clarity Clear (Clear) Urine pH 5.0 (5.0-8.0) pH Units Ur Specific [place] 1.025 (1.010-1.025) Urine Protein Trace (Neg-Trace) mg/dL Urine Glucose (UA) Normal (Normal) mg/dL Urine Ketones Trace H (Negative) mg/dL Urine Blood Negative (Negative) Urine Nitrite Negative (Negative) Urine Bilirubin Small H (Negative) Urine Urobilinogen Normal (Normal) mg/dL Ur Leukocyte Esterase Trace H (Negative) Urine Microscopic RBC 0-3 (0-3) per hpf Urine Microscopic WBC 3-5 H (0-3) per hpf Ur Squamous Epith Cells Many H (None-Few) per lpf Urine Bacteria Many H (None-Few) per hpf Hyaline Casts None Seen (None-Few) per lpf Ur Culture Indicated? NO. A (NO) Critical Care Time Critical Care Time: Yes Total Critical Care Time: 30 Attestation: The high probability of a clinically significant, sudden or life threatening deterioration of the [] system(s) required my full and direct attention, intervention and personal management. The aggregate critical care time was [] minutes. This time is in addition to time spent performing reported procedures but includes the following: [] Data Review and interpretation [] Patient assessment and monitoring of vital signs [] Documentation [] Medication orders and management Attestation Statement - Attestation Attestation: Care of patient assumed from Dr. Amaya at 19:[address] abdomen and pelvis. The patient presents with failure to thrive. Additional information obtained by the home health care social worker from the patient's family member states that they are unable to care for her. She has been progressively weak. The patient appears in no acute distress on exam. Review of obtained studies indicate a white count of 30,000+. Lactate is normal. Vancomycin was ordered by the previous physician. Upon completion and review of the CT abdomen and pelvis the patient will be admitted to the medicine service Because the patient has a leukocytosis and tachycardia with the suspected source of fever being her decubitus ulcer, she meets sepsis criteria. Vancomycin was already ordered by the previous physician but I did add blood cultures. Lactate was normal. IV fluids ordered by the previous physician case discussed with labor economist surgeon Dr. Ventura in case surgical debridement or wound care is indicated. Dr. Cyr agreeable to admit
[2018-08-01] MEDS ORDERED: Piperacillin/Tazobactam 3.375 GM in 0.9 % Sodium Chloride Mini Bag 100 ML IVPB ONE (20:01)
[2018-08-01] MEDS ORDERED: Naloxone 0.4 MG/ML INJ IVP PRN (23:26)
[2018-08-01] MEDS ORDERED: 0.9 % Sodium Chloride 500 ML IVC ONE (23:31)
[2018-08-01] MEDS ORDERED: Potassium Phosphate 44 MEQ in 0.9 % Sodium Chloride 250 ML IVPB ONE (23:56)
--- NOTE | 2018-08-02 00:04 | Internal Med History&Physical ---
<Marcello Barber - Last Filed: 08/02/18 02:04> Date of Encounter: 08/02/18 Time of Encounter: 11:20 Internal Medicine - H&P: HPI Chief complaint: Sacral ulcer pain Admitted From: Home Plans for Post Hospital Care: Transfer [employer] Care History of present illness: Ms. Denny is a 82 year old female with pmh significant for CHF, HTN, prior CVA with residual L side weakness, hypothyroidism and osteoporosis. She has had sacral/gluteal pain for the past few weeks that has been progressively worsening. She describes it as aching and sometimes stinging pain. She barely moves around in bed and says she only gets out of bed once every couple weeks. Within the ED family was concerned of chest pain and ED documentation reports no complaints of chest pain in the ED and she denies any chest pain now or recen tly. She does endorse L sided weakness and L UE/LE pain but not more than baseline post CVA, denies the sacral pain radiating elsewhere, subjective fever/chills, diplopia, blurry vision, dizziness/lightheadedness, chest pain, dyspnea, abdominal pain, N/V, constipation, diarrhea, dysuria, hematuria. Within the ED she was afebrile, tachycardic, WBC 39.5, troponin 0.04, with sacral decubitus ulcer and cellulitis, started on empiric antibiotics. Past Med Surg Social Fam HX - Past Medical History Medical history: CHF, CVA, GERD, hypertension, osteoporosis, thyroid disease Additional medical history: Lupus, Psychiatric history: no psych history - Past Surgical History Surgical History: hysterectomy, other Additional surgical history: per medical record - Social History Smoking Status: Current every day smoker Packs per day: 1/2 Smokeless Tobacco Status: No Alcohol use: none Drug use: none - Family History Mother Hx Family Cardiac Disorders: Yes (NE) Brother Hx Family Cancer: Yes (prostate) Internal Medicine - H&P: Meds Docusate [Colace] 100 mg PO DAILY PRN 11/02/16 [History] Aspirin 81 mg PO DAILY tab.chew 11/06/16 [Rx] Baclofen [Lioresal] 10 mg PO BID 12/01/16 [History] Celecoxib [Celebrex] 100 mg PO DAILY 12/01/16 [History] Cholecalciferol (D-3) [Vitamin D] 5,000 unit PO BID 12/01/16 [History] DULoxetine [Cymbalta] 30 mg PO DAILY 12/01/16 [History] Esomeprazole Magnesium [Nexium] 40 mg PO DAILY 12/01/16 [History] Levothyroxine [Synthroid] 150 mcg PO DAILY 12/01/16 [History] PARoxetine HCl [Paroxetine HCl] 10 mg PO DAILY 12/01/16 [History] Amlodipine Besylate 5 mg PO DAILY 07/04/18 [History] Buspirone HCl [Buspar] 5 mg PO BID 07/04/18 [History] Hydrocodone/Acetaminophen [[place] 10-325 Tablet] 1 tab PO Q6H PRN 07/04/18 [History] Lisinopril 2.5 mg PO DAILY 07/04/18 [History] Spironolactone 25 mg PO QAM 07/04/18 [History] Temazepam [Restoril] 30 mg PO HS 07/04/18 [History] Pregabalin [Lyrica] 150 mg PO TID 30 Days #90 capsule 07/07/18 [Rx] Allergy/AdvReac Type Severity Reaction Status Date / Time Iodinated Contrast- Oral and Allergy See Verified 11/02/16 12:33 IV Dye Comments [Iodinated Contrast Media - Oral and] All Systems PM: A 10-system review of systems was performed and is negative for pertinent findings except as documented above in the HPI. - Constitutional Vitals: Temp Pulse Resp BP Pulse Ox 98.3 F 125 16 88/55 96 08/01/18 22:48 08/01/18 22:48 08/01/18 22:48 08/01/18 22:48 08/01/18 22:48 General appearance: Present: cooperative, disheveled, no acute distress, answers questions appropriately Exam: - - Head Head exam: Present: atraumatic, normal inspection, normocephalic - Eye Eye exam: Present: normal appearance. Absent: scleral icterus - ENT ENT exam: Present: mucous membranes dry - Neck Neck exam general surgery: Present: normal inspection, supple, trachea midline - Respiratory Respiratory exam: Present: CTAB. Absent: accessory muscle use, chest wall tenderness, decreased breath sounds, prolonged expiratory phase, rales, respiratory distress, rhonchi, stridor, wheezes, tachypnea - Cardiovascular Cardiovascular exam: Present: +S1, +S2, tachycardia (regular rhythm). Absent: bradycardia, clicks, diastolic murmur, distant heart sounds, gallop, irregular rhythm, JVD, RRR, rubs, +S3, +S4, systolic murmur - GI/Abdominal GI/Abdominal exam: Present: soft, no peritoneal signs. Absent: distended, firm, guarding, hepatomegaly, rebound, rigid, splenomegaly, tenderness - Extremities Exam Extremities exam: Present: normal capillary refill, tenderness (L foot ), warm, radial pulses palpable and symmetrical. Absent: calf tenderness, cyanotic, full ROM, joint swelling, mottling, pedal edema - Back Exam Additional comments: ~[id number] sacral decubitus ulcer with skin breakdown, surrounding erythema and areas of purulent drainage. No bone visualized. - Neurological Exam Neurological exam: Present: alert, CN II-XII intact, oriented X3. Absent: facial droop, speech deficit - Psychiatric Psychiatric exam: Present: normal affect, normal mood - Skin Skin exam: Present: dry, erythema, excoriation, warm. Absent: abrasion, c yanosis, diaphoretic, intact, mottled, normal color, pallor, petechiae, rash, urticaria, vesicles Internal Med - H&P Results - Labs CBC & Chem 7: 08/01/18 17:42 08/01/18 17:42 Labs: Short CBC 08/01/18 Range/Units 17:42 WBC 39.5 H* (4.3-11.1) K/mcL Hgb 11.7 (11.5-15.4) g/dL Hct 34.6 L (35.3-44.9) % Plt Count 256 (140-400) K/mcL Neutrophils # 35.2 H (1.6-8.9) K/mcL BMP 08/01/18 17:42 Sodium 137 Potassium 3.6 Chloride 101 Carbon Dioxide 24 BUN 37 H Creatinine 0.83 Glucose 115 H Calcium 10.0 Cardiac Enzymes 08/01/18 Range/Units 17:42 Troponin I 0.04 H* (< 0.04) ng/mL Liver Function 08/01/18 Range/Units 17:42 Total Bilirubin 0.5 (0.3-1.0) mg/dL AST 11 L (13-39) Units/L ALT 8 (7-52) Units/L Alkaline Phosphatase 83 (34-104) Units/L Albumin 3.2 L (3.5-5.7) g/dL Urine 08/01/18 Range/Units 18:00 Urine Color Dark Yellow (Yellow) Urine Clarity Clear (Clear) Urine pH 5.0 (5.0-8.0) pH Units Ur Specific [place] 1.025 (1.010-1.025) Urine Protein Trace (Neg-Trace) mg/dL Urine Glucose (UA) Normal (Normal) mg/dL - Impressions ITS Impressions Chest X-Ray 08/01/18 17:29 IMPRESSION: Stable portable study. D/ / Petra Hastings Cha, MD / Petra Hastings Cha, MD Interpreting Provider: Petra Hastings Cha, MD Head CT 08/01/18 17:29 IMPRESSION: No acute intracranial abnormality. No significant interval change. D/ / Gilberto Pearce MD / Gilberto Pearce MD Interpreting Provider: Gilberto Pearce MD Abdomen/Pelvis CT 08/01/18 18:33 IMPRESSION: Gallbladder sludge. No acute disease. D/ / Gilberto Pearce MD / Gilberto Pearce MD Interpreting Provider: Gilberto Pearce MD - Assessment and plan (1) Sepsis Current Visit: Yes Status: Acute Assessment and plan: -Likely 2/2 sacral decubitus ulcer and surrounding cellulitis -Afebrile, HR 125, BP 88/55, WBC 39.5, troponin 0.04 -Lactic 1.4 -Only 1 blood culture was drawn in the ED. Will get repeat cultures now but she has now been on both vanc and pip/tazo for 7 hours prior to draw -Holding home antihypertensives as remains hypotensive -Received 1.5L IVF bolus so far and will continue IVF -Electrolytes being repleted -Continue broad spectrum abx with vanc and pip/tazo till cultures return and deescalate as indicated -Blood cultures and wound cultures pending -Wound care and surgery consulted for decubitus ulcer Qualifiers: Sepsis type: sepsis due to unspecified organism Qualified Code(s): A41.9 - Sepsis, unspecified organism (2) Decubitus ulcer of sacral region, stage 2 Current Visit: No Status: Acute Assessment and plan: -Large sacral decubitus ulcer with purulent drainage and surrounding cellulitis -CT abd/plv 08/01/18: Gallbladder sludge, moderate dextroconvex scoliosis but no other acute disease -Keep her NPO till surgery evaluates incase they decide to debride tissue in OR -Rest of management per sepsis assessment (3) Cellulitis Current Visit: Yes Status: Acute Assessment and plan: -Large sacral decubitus ulcer with surrounding cellulitis -Management as above in sepsis assessment Qualifiers: Site of cellulitis: buttock Qualified Code(s): L03.317 - Cellulitis of buttock (4) Elevated troponin Current Visit: Yes Status: Acute Assessment and plan: -Troponin 0.04 likely 2/2 sepsis and hypotension > ACS as has no complaints of ACS symptoms -Will trend troponin (5) Hypophosphatemia Current Visit: Yes Status: Acute Assessment and plan: -Phos 2.5 on arrival -Will replace phos and recheck in the morning (6) Hypomagnesemia Current Visit: Yes Status: Acute Assessment and plan: -Mg 1.3 on arrival -Replacing Mg and will recheck in the morning (7) Iron deficiency Current Visit: Yes Status: Suspected Assessment and plan: -Hgb 11.7 and appears baseline -MCV 81.6 -Will check iron profile (8) Hypothyroid Current Visit: No Status: Chronic Assessment and plan: -Hx of hypothyroidism -TSH 0.028 -Will continue home meds Qualifiers: Hypothyroidism type: unspecified Qualified Code(s): E03.9 - Hypothyroidism, unspecified (9) Limited code status Current Visit: Yes Status: Acute Assessment and plan: -During discussion of code status she stated she does not want CPR or intubation but would like to be kept comfortable. She stated "just let me go, I have been through enough" (10) DVT prophylaxis Current Visit: Yes Status: Acute Assessment and plan: -SQ heparin - Time Spent With Patient Total time spent is greater than 50% in coordination of care (as documented) at patient's floor/unit and/or counseling patient: <Gilberto Guerra - Last Filed: 08/02/18 05:23> Date of Encounter: 08/02/18 Internal Medicine - H&P: HPI History of present illness: Ms. Denny is a 82 year old female All Systems PM: A 10-system review of systems was performed and is negative for pertinent findi ngs except as documented above in the HPI. - Constitutional Vitals: Temp Pulse Resp BP Pulse Ox 98.7 F 111 14 98/65 90 08/02/18 03:41 08/02/18 03:41 08/02/18 03:41 08/02/18 03:41 08/02/18 03:41 Internal Med - H&P Results - Labs CBC & Chem 7: 08/02/18 02:23 08/01/18 17:42 Labs: Short CBC 08/01/18 08/02/18 Range/Units 17:42 02:23 WBC 39.5 H* 27.5 H (4.3-11.1) K/mcL Hgb 11.7 9.7 L D (11.5-15.4) g/dL Hct 34.6 L 29.8 L (35.3-44.9) % Plt Count 256 203 (140-400) K/mcL Neutrophils # 35.2 H 22.1 H (1.6-8.9) K/mcL BMP 08/01/18 17:42 Sodium 137 Potassium 3.6 Chloride 101 Carbon Dioxide 24 BUN 37 H Creatinine 0.83 Glucose 115 H Calcium 10.0 Cardiac Enzymes 08/01/18 08/01/18 Range/Units 17:42 23:44 Troponin I 0.04 H* < 0.03 (< 0.04) ng/mL Liver Function 08/01/18 Range/Units 17:42 Total Bilirubin 0.5 (0.3-1.0) mg/dL AST 11 L (13-39) Units/L ALT 8 (7-52) Units/L Alkaline Phosphatase 83 (34-104) Units/L Albumin 3.2 L (3.5-5.7) g/dL Urine 08/01/18 Range/Units 18:00 Urine Color Dark Yellow (Yellow) Urine Clarity Clear (Clear) Urine pH 5.0 (5.0-8.0) pH Units Ur Specific [place] 1.025 (1.010-1.025) Urine Protein Trace (Neg-Trace) mg/dL Urine Glucose (UA) Normal (Normal) mg/dL - Impressions ITS Impressions Chest X-Ray 08/01/18 17:29 IMPRESSION: Stable portable study. D/ / Petra Hastings Cha, MD / Petra Hastings Cha, MD Interpreting Provider: Petra Hastings Cha, MD Head CT 08/01/18 17:29 IMPRESSION: No acute intracranial abnormality. No significant interval change. D/ / Gilberto Pearce MD / Gilberto Pearce MD Interpreting Provider: Gilberto Pearce MD Abdomen/Pelvis CT 08/01/18 18:33 IMPRESSION: Gallbladder sludge. No acute disease. D/ / Gilberto Pearce MD / Gilberto Pearce MD Interpreting Provider: Gilberto Pearce MD - Time Spent With Patient Total time spent is greater than 50% in coordination of care (as documented) at patient's floor/unit and/or counseling patient: - Attending Attestation I saw and evaluated the patient. I reviewed the residents note, performed my own physical examination and agree with findings and plan as documented in the residents note. Patient seen and examined on 08/02/18. Patient has large sacral decubital ulceration. Surgery evaluated during the night, no acute surgery but will reassess in the morning. Will continue IV antibiotics, and follow up with further recommendations.
[2018-08-02] MEDS ORDERED: Acetaminophen 325 MG TABLET PO PRN (00:08)
[2018-08-02] MEDS ORDERED: *HR* HYDROcodone/Acet 5/325 mg TABLET PO PRN (00:08)
[2018-08-02] MEDS: *HR* Heparin 5,000 UNIT/ML VIAL SQ SCH ×4 (01:44→21:26)
[2018-08-02 02:31] LABS: Basophils # 0.1 K/mcL (0.0-0.2); Basophils % 0.2 %; Hematocrit 29.8 % (35.3-44.9); Hemoglobin 9.7 g/dL (11.5-15.4); Immature Granulocytes % 1.6 % (0-4); Lymphocytes # 3.7 K/mcL (0.6-4.6); Lymphocytes % 13.4 %; Mean Corpuscular HGB Conc 32.6 g/dL (31.6-35.5); Mean Corpuscular Hemoglobin 27.6 pg (28.0-33.3); Mean Corpuscular Volume 84.9 fL (83.0-100.0); Mean Platelet Volume 12.7 fL (9.4-12.4); Monocytes # 1.2 K/mcL (0.0-1.3); Monocytes % 4.4 %; Neutrophils # 22.1 K/mcL (1.6-8.9); Platelet Count 203 K/mcL (140-400); Red Blood Count 3.51 M/mcL (3.82-4.97); Red Cell Distribution Width 13.7 % (11.5-14.5); Segmented Neutrophils % 80.4 %
--- NOTE | 2018-08-02 02:59 | General Surgery Consult Note ---
Date of Encounter: 08/02/18 Time of Encounter: 02:57 Assessment and Plan (1) Sepsis Current Visit: Yes Status: Acute 82F who presented with pain along her sacral region with leukocytosis (currently trending down with IV abx), hypotension, and tachycardia; CT concerning for tracking of air along left gluteal region, but suspect it is from breakdown of s kin in that region (due to her unstageable decubitus ulcer). chances are it is deeper than what is appreciated on exam or CT; NPO IVF IV abx per primary team q2hr turns apply allevyn pad to wound keep wound clean will reassess later today no acute surgery Qualifiers: Sepsis type: sepsis due to unspecified organism Qualified Code(s): A41.9 - Sepsis, unspecified organism History of Present Illness Consult date: 08/02/18 History of present illness: 82F pMH significant for CHF, HTN, prior CVA with residual L side weakness, hypothyroidism and osteoporosis. She has had sacral/gluteal pain for the past few weeks that has been progressively worsening. She describes it as aching and sometimes stinging pain. She barely moves around in bed and says she only gets out of bed once every couple weeks. She was recently discharged only to be readmitted. NO reports of fevers, chills, nausea or vomiting. A Ct scan was obtained which demonstrated no acute abnormality, but I was able to appreciate gas tracking along her left gluteal region. no evidence of abscess Past Med Surg Social Fam HX - Past Medical History Medical history: CHF, CVA, GERD, hypertension, osteoporosis, thyroid disease Additional medical history: Lupus, Psychiatric history: no psych history - Past Surgical History Surgical History: hysterectomy, other Additional surgical history: per medical record - Social History Smoking Status: Current every day smoker Packs per day: 1/2 Smokeless Tobacco Status: No Alcohol use: none Drug use: none - Family History Mother Hx Family Cardiac Disorders: Yes (SD) Brother Hx Family Cancer: Yes (prostate) Medications and Allergies Docusate [Colace] 100 mg PO DAILY PRN 11/02/16 [History] Aspirin 81 mg PO DAILY tab.chew 11/06/16 [Rx] Baclofen [Lioresal] 10 mg PO BID 12/01/16 [History] Celecoxib [Celebrex] 100 mg PO DAILY 12/01/16 [History] Cholecalciferol (D-3) [Vitamin D] 5,000 unit PO BID 12/01/16 [History] DULoxetine [Cymbalta] 30 mg PO DAILY 12/01/16 [History] Esomeprazole Magnesium [Nexium] 40 mg PO DAILY 12/01/16 [History] Levothyroxine [Synthroid] 150 mcg PO DAILY 12/01/16 [History] PARoxetine HCl [Paroxetine HCl] 10 mg PO DAILY 12/01/16 [History] Amlodipine Besylate 5 mg PO DAILY 07/04/18 [History] Buspirone HCl [Buspar] 5 mg PO BID 07/04/18 [History] Hydrocodone/Acetaminophen [[place] 10-325 Tablet] 1 tab PO Q6H PRN 07/04/18 [History] Lisinopril 2.5 mg PO DAILY 07/04/18 [History] Spironolactone 25 mg PO QAM 07/04/18 [History] Temazepam [Restoril] 30 mg PO HS 07/04/18 [History] Pregabalin [Lyrica] 150 mg PO TID 30 Days #90 capsule 07/07/18 [Rx] Allergy/AdvReac Type Severity Reaction Status Date / Time Iodinated Contrast- Oral and Allergy See Verified 11/02/16 12:33 IV Dye Comments [Iodinated Contrast Media - Oral and] Review of Systems All systems PM: 12 point ROS negative besides HPI findings General Surgery Exam Initial Vital Signs Temp Pulse Resp BP Pulse Ox 98.9 F 125 14 94/63 100 08/01/18 17:51 08/01/18 17:51 08/01/18 17:51 08/01/18 17:51 08/01/18 17:51 - General physical appearance no distress - Eyes normal ocular movement - ENT normocephalic - Neck trachea midline, no lymphadectomy - Respiratory normal expansion, normal respiratory effort - Cardiovascular Cardiovascular exam: Present: RRR - Abdomen Abdomen general surgery: Present: soft, non tender - Integumentary Integumentary general surgery: Present: warm and dry, other (areas of necrosis and erythema along the sacrum; she has an unstageable decubitus ulcer; no drainage) - Neurologic Present: CN 2-12 grossly intact - Psychiatric Psychiatric general surgery: Present: A&Ox3 Exam Initial Vital Signs Temp Pulse Resp BP Pulse Ox 98.9 F 125 14 94/63 100 08/01/18 17:51 08/01/18 17:51 08/01/18 17:51 08/01/18 17:51 08/01/18 17:51 Results - Labs 08/02/18 02:23 08/01/18 17:42 Abnormal lab results WBC 27.5 K/mcL (4.3-11.1) H 08/02/18 02:23 RBC 3.51 M/mcL (3.82-4.97) L 08/02/18 02:23 Hgb 9.7 g/dL (11.5-15.4) L D 08/02/18 02:23 Hct 29.8 % (35.3-44.9) L 08/02/18 02:23 MCH 27.6 pg (28.0-33.3) L 08/02/18 02:23 MPV 12.7 fL (9.4-12.4) H 08/02/18 02:23 Neutrophils # 22.1 K/mcL (1.6-8.9) H 08/02/18 02:23 Hypersegmented Neuts Present (Not Present) A 08/01/18 17:42 PT 14.4 Seconds (9.4-12.1) H 08/01/18 17:42 BUN 37 mg/dL (8-23) H 08/01/18 17:42 BUN/Creatinine Ratio 45 (6-26) H 08/01/18 17:42 Glucose 115 mg/dL (70-105) H 08/01/18 17:42 Magnesium 1.3 mg/dL (1.6-2.6) L 08/01/18 17:42 AST 11 Units/L (13-39) L 08/01/18 17:42 Serum Total Protein 5.8 g/dL (6.4-8.9) L 08/01/18 17:42 Albumin 3.2 g/dL (3.5-5.7) L 08/01/18 17:42 TSH 0.028 mcIU/mL (0.340-5.600) L 08/01/18 17:42 Urine Ketones Trace mg/dL (Negative) H 08/01/18 18:00 Urine Bilirubin Small (Negative) H 08/01/18 18:00 Ur Leukocyte Esterase Trace (Negative) H 08/01/18 18:00 Urine Microscopic WBC 3-5 per hpf (0-3) H 08/01/18 18:00 Ur Squamous Epith Cells Many per lpf (None-Few) H 08/01/18 18:00 Urine Bacteria Many per hpf (None-Few) H 08/01/18 18:00 Ur Culture Indicated? NO. (NO) A 08/01/18 18:00 Diabetes panel 08/01/18 Range/Units 17:42 Sodium 137 (136-145) mEq/L Potassium 3.6 (3.5-5.1) mEq/L Chloride 101 (98-107) mEq/L Carbon Dioxide 24 (23-29) mEq/L BUN 37 H (8-23) mg/dL Creatinine 0.83 (0.60-1.20) mg/dL Glucose 115 H (70-105) mg/dL Calcium 10.0 (8.6-10.3) mg/dL AST 11 L (13-39) Units/L ALT 8 (7-52) Units/L Alkaline Phosphatase 83 (34-104) Units/L Albumin 3.2 L (3.5-5.7) g/dL Thyroid panel 08/01/18 Range/Units 17:42 TSH 0.028 L (0.340-5.600) mcIU/mL Calcium panel 08/01/18 08/02/18 Range/Units 17:42 02:11 Calcium 10.0 (8.6-10.3) mg/dL Phosphorus 2.5 L 2.7 (2.7-4.5) mg/dL Albumin 3.2 L (3.5-5.7) g/dL Pituitary panel 08/01/18 Range/Units 17:42 Sodium 137 (136-145) mEq/L Potassium 3.6 (3.5-5.1) mEq/L Chloride 101 (98-107) mEq/L Carbon Dioxide 24 (23-29) mEq/L BUN 37 H (8-23) mg/dL Creatinine 0.83 (0.60-1.20) mg/dL Glucose 115 H (70-105) mg/dL Calcium 10.0 (8.6-10.3) mg/dL TSH 0.028 L (0.340-5.600) mcIU/mL Adrenal panel 08/01/18 Range/Units 17:42 Sodium 137 (136-145) mEq/L Potassium 3.6 (3.5-5.1) mEq/L Chloride 101 (98-107) mEq/L Carbon Dioxide 24 (23-29) mEq/L BUN 37 H (8-23) mg/dL Creatinine 0.83 (0.60-1.20) mg/dL Glucose 115 H (70-105) mg/dL Calcium 10.0 (8.6-10.3) mg/dL Total Bilirubin 0.5 (0.3-1.0) mg/dL AST 11 L (13-39) Units/L ALT 8 (7-52) Units/L Alkaline Phosphatase 83 (34-104) Units/L Albumin 3.2 L (3.5-5.7) g/dL All other labs normal. - Imaging CT scan - abdomen: report reviewed, image reviewed CT scan - pelvis: report reviewed, image reviewed Consult Discharge Plan - Plan Referrals: NONE,PCP [Primary Care Provider] -
[2018-08-02 03:02] LABS: Iron < 10 mcg/dL (50-170); Transferrin 139 mg/dL (203-362)
[2018-08-02 03:25] LABS: Platelet Estimate Normal (Normal)
[2018-08-02] MEDS ORDERED: 0.9 % Sodium Chloride 1,000 ML IVC ONE (05:26)
[2018-08-02] MEDS ORDERED: Piperacillin/Tazobactam 3.375 GM in 0.9 % Sodium Chloride Mini Bag 100 ML IVPB SCH (06:00)
[2018-08-02 06:35] LABS: BUN/Creatinine Ratio 49 (6-26); Blood Urea Nitrogen 32 mg/dL (8-23); Calcium 9.1 mg/dL (8.6-10.3); Carbon Dioxide 22 mEq/L (23-29); Chloride 108 mEq/L (98-107); Glucose 82 mg/dL (70-105); Magnesium 1.9 mg/dL (1.6-2.6); Osmolality,Calculated 296 (280-300); Potassium 3.7 mEq/L (3.5-5.1); Sodium 140 mEq/L (136-145); eGFR For Non-African Americans > 60 (> 60)
[2018-08-02 06:42] LABS: Troponin I 0.04 ng/mL (< 0.04)
--- NOTE | 2018-08-02 10:09 | Event Note ---
Date of Encounter: 08/02/18 Time of Encounter: 10:09 Ms. 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 CXR is unremarkable for infiltrates, UA is unremarkable for infection, Abd/Pelvic CT showed no acute abn disease, initial EKG unremarkable for ischemic changes, however, repeat trop is 0.06 Patient was seen an evaluated at the bedside , she is lying on her left side , denies being in pain or discomfort, denies SOB vitals reviewed and blood pressure remains soft on IVF, lactate is normal on admission Labs and Imaging reviewed Surgery evaluation noted-no intervention planned at this time Will resume home meds, except antihypertensives, resume diet Follow final cultures-wound culture is pending Continue current antibiotics regimen Patient is DNR-DNI. Fall precautions
[2018-08-02] MEDS: Pregabalin 75 MG CAPSULE PO SCH ×2 (14:48→21:26)
[2018-08-02] MEDS: Piperacillin/Tazobactam 3.375 GM in 0.9 % Sodium Chloride Mini Bag 100 ML IVPB SCH ×2 (16:04→23:36)
[2018-08-02] MEDS: Temazepam 15 MG CAPSULE PO SCH (21:26)
[2018-08-03] MEDS: *HR* Heparin 5,000 UNIT/ML VIAL SQ SCH ×3 (06:02→21:53)
[2018-08-03] MEDS: Piperacillin/Tazobactam 3.375 GM in 0.9 % Sodium Chloride Mini Bag 100 ML IVPB SCH ×3 (07:30→23:32)
[2018-08-03 08:18] LABS: Basophils % 0.2 %; Eosinophils # 0.1 K/mcL (0.0-0.6); Eosinophils % 0.5 %; Hematocrit 27.1 % (35.3-44.9); Immature Granulocytes % 0.6 % (0-4); Lymphocytes # 2.5 K/mcL (0.6-4.6); Lymphocytes % 14.3 %; Mean Corpuscular HGB Conc 32.5 g/dL (31.6-35.5); Mean Corpuscular Hemoglobin 27.2 pg (28.0-33.3); Mean Corpuscular Volume 83.6 fL (83.0-100.0); Mean Platelet Volume 12.6 fL (9.4-12.4); Monocytes # 0.9 K/mcL (0.0-1.3); Monocytes % 5.1 %; Neutrophils # 13.6 K/mcL (1.6-8.9); Platelet Count 187 K/mcL (140-400); Red Blood Count 3.24 M/mcL (3.82-4.97); Red Cell Distribution Width 13.7 % (11.5-14.5); Segmented Neutrophils % 79.3 %
[2018-08-03 08:25] LABS: Hemoglobin 8.8 g/dL (11.5-15.4)
[2018-08-03 08:38] LABS: BUN/Creatinine Ratio 35 (6-26); Blood Urea Nitrogen 20 mg/dL (8-23); Calcium 8.7 mg/dL (8.6-10.3); Carbon Dioxide 23 mEq/L (23-29); Chloride 109 mEq/L (98-107); Glucose 94 mg/dL (70-105); Osmolality,Calculated 290 (280-300); Sodium 139 mEq/L (136-145); eGFR For Non-African Americans > 60 (> 60)
--- NOTE | 2018-08-03 08:38 | Internal Med Progress Note ---
Addendum entered and electronically signed by Gelacio Childress DO 08/03/18 18:17: Addendum to A/P Hypokalemia Patient's K+ 3.0 today Replete with oral and IV Potassium Recheck in AM Original Note: <Parris Brooks - Last Filed: 08/03/18 15:06> Hospitalist Progress Note - Encounter Date of Encounter: 08/03/18 - Exam Vitals: Temp Pulse Resp BP Pulse Ox 98.5 F 92 16 114/72 94 08/03/18 08:08 08/03/18 08:08 08/03/18 08:08 08/03/18 08:08 08/03/18 08:08 - Assessment and Plan (1) Hypothyroid Current Visit: No Status: Chronic (2) Decubitus ulcer of sacral region, stage 2 Current Visit: No Status: Acute (3) Cellulitis Current Visit: Yes Status: Acute (4) Sepsis Current Visit: Yes Status: Acute (5) Hypophosphatemia Current Visit: Yes Status: Acute (6) Hypomagnesemia Current Visit: Yes Status: Acute (7) Elevated troponin Current Visit: Yes Status: Acute (8) Limited code status Current Visit: Yes Status: Acute (9) DVT prophylaxis Current Visit: Yes Status: Acute (10) Iron deficiency Current Visit: Yes Status: Suspected - Time Spent with Patient Total time spent is greater than 50% in coordination of care (as documented) at patient's floor/unit and/or counseling patient: Internal Medicine: Result - Labs CBC & Chem 7: 08/03/18 07:46 08/03/18 07:46 Labs: Short CBC 08/03/18 Range/Units 07:46 WBC 17.1 H (4.3-11.1) K/mcL Hgb 8.8 L (11.5-15.4) g/dL Hct 27.1 L (35.3-44.9) % Plt Count 187 (140-400) K/mcL Neutrophils # 13.6 H (1.6-8.9) K/mcL BMP 08/03/18 07:46 Sodium 139 Potassium 3.0 L Chloride 109 H Carbon Dioxide 23 BUN 20 Creatinine 0.57 L Glucose 94 Calcium 8.7 Cardiac Enzymes 08/03/18 Range/Units 07:46 Troponin I 0.04 H* (< 0.04) ng/mL - ABG Interpretation ABG results: PT/INR, D-dimer PT 14.4 Seconds (9.4-12.1) H 08/01/18 17:42 Consult Discharge Plan - Plan Referrals: NONE,PCP [Primary Care Provider] - - Attending Attestation I examined this patient and my medical decision-making was reviewed with the Resident Physician Dr Childress. I agree with the documented findings, disposition and treatment plan as described except to the extent set forth below. Ms Denny is admitted with infected sacral decub ulcer awake, pleasant, did not recall she has ulcer bt knew she came in with pain. discussed treatment plan. she denies fevers, chills, n/v or current pain. no cp,pressure or palpitations. gen- alert, awake,appears stated age eyes- pupils equal round cv- reg rate and rhythm, normal s1,s2, no murmurs appreciated lungs- ctabl, no wheezing, rhonchi or crackles skin- wound dressed, not removed neuro- AAOxperson, hospital setting, CN grossly intact, no focal deficits Sacral Decub Ulcer, infected- vanc + zosyn, bl and wound cxs pending, surg consulted Sepsis suspected to be 2/2 above as cxr, ua and ct a/p without acute infectious findings- treatment as above, IVFs Elevated trop in setting of sepsis without chest pain - 0.03-0.04, suspect demand in setting of sepsis, no report of ekg ischemic changes Chronic anemia with most recent hgbs 11s, known CARLENE- drop to 9.7 then 8.8 with sepsis fluids, will monitor for bleeding from wound, no other apparent bleeding, repeat hgb later today Hypokalemia- replete and cont to monitor Low TSH and elevated free T4 with hx Hypothyroidism on synthroid- hold further doses, check thyroid US further diagnoses and plan as noted by resident <Gelacio Childress - Last Filed: 08/03/18 18:06> Hospitalist Progress Note - Encounter Date of Encounter: 08/03/18 Time of Encounter: 09:45 - Subjective Interval History: The patient is resting comfortably in bed at time of examination. She is pleas antly confused and unable to provide a significant history. She does say that she is feeling significantly better than the time that she arrived at the hospital. She is not complaining of a significant amount of pain. She has no nausea, vomiting, diarrhea. She also has no shortness of breath - Exam Vitals: Temp Pulse Resp BP Pulse Ox 98.5 F 92 16 114/72 94 08/03/18 08:08 08/03/18 08:08 08/03/18 08:08 08/03/18 08:08 08/03/18 08:08 Exam: Gen: Vitals noted. No acute distress. Patient appears frail. Eyes: anicteric sclerae, moist conjunctivae; no lid-lag; Pupils equal and reactive to light HENT: Atraumatic; oropharynx clear with moist mucous membranes and no mucosal ulcerations; normal hard and soft palate Neck: Trachea midline; supple, no thyromegaly or lymphadenopathy Cardiac: RRR, no murmur, +S1/S2 Pulmonary: CTA bilaterally, no wheezes, rales or rhonchi, equal chest expansion Abdomen: soft, nontender, no guarding. No masses or hepatosplenomegaly MSK: ROM intact, no joint swelling noted Extremities: no BLE edema, nontender calf, no cyanosis or clubbing Skin: Normal temperature, turgor and texture; no rash, ulcers or subcutaneous nodules Neuro: moves all extremities, patient is generally weak, appears especially from the left side with a facial droop. Psych: Appropriate mood and behavior. - Assessment and Plan (1) Sepsis Current Visit: Yes Status: Acute Assessment and Plan: Sepsis secondary to sacral decubitus ulcer Criteria include tachycardia with heart rate greater than 90, WBC 39 on arrival, down to 17.1, source decubitus ulcer. Vital signs appear stable, patient is afebrile and heart rate trending down WBCs have trended down over the course of admission Broad-spectrum antibiotics, currently on vancomycin and Zosyn day 2 Blood cultures and wound cultures are pending We will continue broad-spectrum antibiotics, maintenance fluids Surgery gave recommendations for wound care, no debridement necessary. Signed off (2) Decubitus ulcer of sacral region, stage 2 Current Visit: Yes Status: Acute Assessment and Plan: Large sacral decubitus ulcer, source of sepsis Patient was in significant amount of pain Wound cultures currently pending, treating with Zosyn and vancomycin Surgery was on board, recommended against debridement We will continue to treat with IV antibiotics (3) Cellulitis Current Visit: Yes Status: Acute Assessment and Plan: -Large sacral decubitus ulcer with surrounding cellulitis -Management as above in sepsis assessment (4) Elevated troponin Current Visit: Yes Status: Acute Assessment and Plan: Likely related to demand ischemia in the setting of sepsis Patient denies chest pain, no significant shortness of breath EKG Showed sinus tach without ischemic changes (5) Iron deficiency Current Visit: Yes Status: Suspected Assessment and Plan: Iron deficiency anemia, acute This does appear to be new in comparison to prior visits Baseline hemoglobin appears to be ~11 on prior visits Possibly secondary to bleeding from decubitus ulcer (6) Hyperthyroidism Current Visit: Yes Status: Resolved Assessment and Plan: Hyperthyroidism as demonstrated on labs at time of admission Patient has been treated for hypothyroidism with levothyroxine On admission, TSH was 0.028 Repeat TSH is 0.020. Free T4 - 2.25, free T3 - 1.57 The patient is currently taking 150 g of levothyroxine daily It is unclear whether or not this hyperthyroidism is due to overmedication or overactive thyroid nodule We will ultrasound the thyroid Hold [facility] for now Further plan following ultrasound results - Time Spent with Patient Total time spent is greater than 50% in coordination of care (as documented) at patient's floor/unit and/or counseling patient: Internal Medicine: Result - Labs CBC & Chem 7: 08/03/18 16:35 08/03/18 07:46 Labs: Short CBC 08/03/18 Range/Units 07:46 WBC 17.1 H (4.3-11.1) K/mcL Hgb 8.8 L (11.5-15.4) g/dL Hct 27.1 L (35.3-44.9) % Plt Count 187 (140-400) K/mcL Neutrophils # 13.6 H (1.6-8.9) K/mcL - ABG Interpretation ABG results: PT/INR, D-dimer PT 14.4 Seconds (9.4-12.1) H 08/01/18 17:42 <Parris Brooks - Last Filed: 08/03/18 15:06> (1) Hypothyroid Qualifiers: Hypothyroidism type: unspecified Qualified Code(s): E03.9 - Hypothyroidism, unspecified (3) Cellulitis Qualifiers: Site of cellulitis: buttock Qualified Code(s): L03.317 - Cellulitis of buttock (4) Sepsis Qualifiers: Sepsis type: sepsis due to unspecified organism Qualified Code(s): A41.9 - Sepsis, unspecified organism <Gelacio Childress - Last Filed: 08/03/18 18:06> (1) Sepsis Qualifiers: Sepsis type: sepsis due to unspecified organism Qualified Code(s): A41.9 - Sepsis, unspecified organism (3) Cellulitis Qualifiers: Site of cellulitis: buttock Qualified Code(s): L03.317 - Cellulitis of buttock
[2018-08-03 08:43] LABS: Troponin I 0.04 ng/mL (< 0.04)
[2018-08-03 09:13] LABS: Triiodothyronine (T3) Free 1.57 pg/mL (2.50-3.90)
[2018-08-03] MEDS: Aspirin 81 MG TAB.CHEW PO SCH (09:13)
[2018-08-03] MEDS: Pregabalin 75 MG CAPSULE PO SCH ×3 (09:13→21:53)
--- NOTE | 2018-08-03 12:48 | General Surgery Progress Note ---
Date of Encounter: 08/03/18 Time of Encounter: 12:46 - Assessment and Plan (1) Sepsis Current Visit: Yes Status: Acute 82F with sepsis, sacral decubitus ulcer likely as source; currently decreasing WBC with IV abx; diet as tolerated cont IV abx wound care: application of allevyn pad, q2hr turns; follow up 1 week after discharge to my wound clinic for further management; general surgery will sign off Thank you for the consultation. please call if there are any new questions or concerns Qualifiers: Sepsis type: sepsis due to unspecified organism Qualified Code(s): A41.9 - Sepsis, unspecified organism Subjective Patient reports: no new complaints, afebrile Objective Vital Signs - Last 8 Hours Temp Pulse Resp BP Pulse Ox 08/03/18 08:08 98.5 F 92 16 114/72 94 Intake and Output 08/02/18 08/03/18 08/03/18 23:59 07:59 15:59 Intake Total 350 / 350 100 / 100 100 / 100 Output Total 400 / 400 450 / 450 Balance -50 / -50 -350 / -350 100 / 100 Intake: IV Fluids 350 / 350 100 / 100 100 / 100 Zosyn 3.375 GM In 0.9 % Sodium 100 / 100 100 / 100 100 / 100 Chloride (Mini-Bag +) 100 ML @ 25 mls/hr IVPB Q8H [facility] Rx#: [id number] Vancocin 750 MG In 0.9 % Sodium 250 / 250 Chloride 250 ML @ 167 mls/hr IVPB Q24H [facility] Rx#:[id number] Oral 0 / 0 0 / 0 Output: Catheter 400 / 400 450 / 450 Urethral ([place]) 200 / 200 Other: Stool Size Large Stool Consistency loose soft Stool Color Brown # Bowel Movement Diapers 1 0 Weight 54.2 kg Patient Weight 08/03/18 23:59 Weight 54.2 kg - General physical appearance no distress - Respiratory normal expansion, normal respiratory effort - Cardiovascular Cardiovascular exam: Present: RRR - Abdomen Abdomen: Present: soft, non tender - Integumentary other (unstageable sacral decubitus ulcer) - Psychiatric oriented to time, oriented to person, oriented to place - Labs 08/03/18 07:46 08/03/18 07:46 Diabetes panel 08/03/18 Range/Units 07:46 Sodium 139 (136-145) mEq/L Potassium 3.0 L (3.5-5.1) mEq/L Chloride 109 H (98-107) mEq/L Carbon Dioxide 23 (23-29) mEq/L BUN 20 (8-23) mg/dL Creatinine 0.57 L (0.60-1.20) mg/dL Glucose 94 (70-105) mg/dL Calcium 8.7 (8.6-10.3) mg/dL Thyroid panel 08/03/18 Range/Units 07:46 TSH 0.020 L (0.340-5.600) mcIU/mL Calcium panel 08/03/18 Range/Units 07:46 Calcium 8.7 (8.6-10.3) mg/dL Pituitary panel 08/03/18 Range/Units 07:46 Sodium 139 (136-145) mEq/L Potassium 3.0 L (3.5-5.1) mEq/L Chloride 109 H (98-107) mEq/L Carbon Dioxide 23 (23-29) mEq/L BUN 20 (8-23) mg/dL Creatinine 0.57 L (0.60-1.20) mg/dL Glucose 94 (70-105) mg/dL Calcium 8.7 (8.6-10.3) mg/dL TSH 0.020 L (0.340-5.600) mcIU/mL Adrenal panel 08/03/18 Range/Units 07:46 Sodium 139 (136-145) mEq/L Potassium 3.0 L (3.5-5.1) mEq/L Chloride 109 H (98-107) mEq/L Carbon Dioxide 23 (23-29) mEq/L BUN 20 (8-23) mg/dL Creatinine 0.57 L (0.60-1.20) mg/dL Glucose 94 (70-105) mg/dL Calcium 8.7 (8.6-10.3) mg/dL Consult Discharge Plan - Plan Referrals: NONE,PCP [Primary Care Provider] -
[2018-08-03] MEDS: Ringers Solution, Lactated 1,000 ML IVC SCH ×2 (13:23→23:31)
--- NOTE | 2018-08-03 15:40 | Electrocardiograph Report ---
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
[2018-08-03] MEDS ORDERED: Potassium Chloride 40 MEQ, Lidocaine 1% 2 ML in D5% in Water 500 ML IVPB ONE (16:26)
[2018-08-03] MEDS ORDERED: Potassium Chloride Elixir 20 MEQ/15 ML UDC PO ONE (16:26)
[2018-08-03 17:09] LABS: Hematocrit 28.9 % (35.3-44.9); Hemoglobin 9.5 g/dL (11.5-15.4)
[2018-08-03] MEDS: Temazepam 15 MG CAPSULE PO SCH (21:53)
[2018-08-04] MEDS: *HR* Heparin 5,000 UNIT/ML VIAL SQ SCH (06:04)
[2018-08-04 06:10] LABS: Basophils % 0.2 %; Eosinophils # 0.3 K/mcL (0.0-0.6); Eosinophils % 1.7 %; Hemoglobin 8.9 g/dL (11.5-15.4); Immature Granulocytes % 0.7 % (0-4); Lymphocytes # 3.1 K/mcL (0.6-4.6); Lymphocytes % 20.4 %; Mean Corpuscular Hemoglobin 27.7 pg (28.0-33.3); Mean Corpuscular Volume 84.1 fL (83.0-100.0); Mean Platelet Volume 12.8 fL (9.4-12.4); Monocytes # 0.8 K/mcL (0.0-1.3); Monocytes % 5.6 %; Neutrophils # 10.7 K/mcL (1.6-8.9); Platelet Count 186 K/mcL (140-400); Red Blood Count 3.21 M/mcL (3.82-4.97); Red Cell Distribution Width 13.7 % (11.5-14.5); Segmented Neutrophils % 71.4 %
[2018-08-04 06:34] LABS: Alanine Aminotransferase 8 Units/L (7-52); Albumin 2.3 g/dL (3.5-5.7); Albumin/Globulin Ratio 1.1 (1.1-2.2); Alkaline Phosphatase 67 Units/L (34-104); Aspartate Amino Transferase 9 Units/L (13-39); BUN/Creatinine Ratio 24 (6-26); Bilirubin,Total 0.4 mg/dL (0.3-1.0); Blood Urea Nitrogen 12 mg/dL (8-23); Calcium 8.6 mg/dL (8.6-10.3); Carbon Dioxide 24 mEq/L (23-29); Chloride 107 mEq/L (98-107); Globulin 2.1 g/dL (2.4-3.5); Glucose 102 mg/dL (70-105); Osmolality,Calculated 282 (280-300); Potassium 3.2 mEq/L (3.5-5.1); Sodium 136 mEq/L (136-145); Total Protein 4.4 g/dL (6.4-8.9); eGFR For Non-African Americans > 60 (> 60)
[2018-08-04] MEDS: Piperacillin/Tazobactam 3.375 GM in 0.9 % Sodium Chloride Mini Bag 100 ML IVPB SCH ×3 (07:29→23:09)
[2018-08-04] MEDS: Pregabalin 75 MG CAPSULE PO SCH ×2 (07:31→13:45)
[2018-08-04] MEDS: Aspirin 81 MG TAB.CHEW PO SCH (07:31)
[2018-08-04] MEDS: Ringers Solution, Lactated 1,000 ML IVC SCH ×3 (09:00→23:10)
[2018-08-04] MEDS ORDERED: Potassium Chloride Elixir 20 MEQ/15 ML UDC PO ONE (09:06)
--- NOTE | 2018-08-04 13:13 | Internal Med Progress Note ---
<Parris Brooks - Last Filed: 08/04/18 13:58> Hospitalist Progress Note - Encounter Date of Encounter: 08/04/18 - Exam Vitals: Temp Pulse Resp BP Pulse Ox 98.3 F 85 18 100/63 91 08/04/18 11:00 08/04/18 11:00 08/04/18 11:00 08/04/18 11:00 08/04/18 11:00 - Assessment and Plan (1) Decubitus ulcer of sacral region, stage 2 Current Visit: Yes Status: Acute (2) Cellulitis Current Visit: Yes Status: Acute (3) Sepsis Current Visit: Yes Status: Acute (4) Elevated troponin Current Visit: Yes Status: Acute (5) Iron deficiency Current Visit: Yes Status: Suspected (6) Hyperthyroidism Current Visit: Yes Status: Resolved - Time Spent with Patient Total time spent is greater than 50% in coordination of care (as documented) at patient's floor/unit and/or counseling patient: Internal Medicine: Result - Labs CBC & Chem 7: 08/04/18 05:50 08/04/18 05:50 Labs: Short CBC 08/03/18 08/04/18 Range/Units 16:35 05:50 WBC 15.0 H (4.3-11.1) K/mcL Hgb 9.5 L 8.9 L (11.5-15.4) g/dL Hct 28.9 L 27.0 L (35.3-44.9) % Plt Count 186 (140-400) K/mcL Neutrophils # 10.7 H (1.6-8.9) K/mcL BMP 08/04/18 05:50 Sodium 136 Potassium 3.2 L Chloride 107 Carbon Dioxide 24 BUN 12 Creatinine 0.49 L Glucose 102 Calcium 8.6 Liver Function 08/04/18 Range/Units 05:50 Total Bilirubin 0.4 (0.3-1.0) mg/dL AST 9 L (13-39) Units/L ALT 8 (7-52) Units/L Alkaline Phosphatase 67 (34-104) Units/L Albumin 2.3 L (3.5-5.7) g/dL - ABG Interpretation ABG results: PT/INR, D-dimer PT 14.4 Seconds (9.4-12.1) H 08/01/18 17:42 - Impressions Impressions Foot X-Ray 08/03/18 20:24 IMPRESSION: 1. No radiographic findings to suggest acute osteomyelitis. 2. Diffuse osteopenia. RECOMMENDATION: MRI could be performed for further evaluation if there is further clinical concern for osteomyelitis. D/ / Tonio Loza MD / Tonio Loza MD Interpreting Provider: Tonio Loza MD Thyroid Ultrasound 08/04/18 09:30 IMPRESSION: 1. Atrophic, heterogeneous thyroid gland, compatible with patient's clinical history of thyroiditis. 2. No suspicious thyroid nodules are identified. D/ / 08/04/2018 10:31:59 Alex George MD / janessa Interpreting Provider: Alex George MD Consult Discharge Plan - Plan Referrals: NONE,PCP [Primary Care Provider] - - Attending Attestation I examined this patient and my medical decision-making was reviewed with the Resident Physician Dr Ochoa. I agree with the documented findings, disposition and treatment plan as described except to the extent set forth below. Ms Denny is admitted with infected sacral decub ulcer awake, eating breakfast, no pain. denies fevers, chills. no pain in feet. gen- alert, awake,appears stated age cv- reg rate and rhythm, normal s1,s2, no murmurs appreciated, no le edema lungs- ctabl, no wheezing, rhonchi or crackles skin- wound dressed, not removed, left sole of foot quarter sized blister with green/blue skin change, non tense, no drainage neuro- AAOxperson, hospital setting Sacral Decub Ulcer, infected- vanc + zosyn, bl and wound cxs pending, surg has evaluated Sepsis suspected to be 2/2 above as cxr, ua and ct a/p without acute infectious findings- treatment as above, IVFs Elevated trop in setting of sepsis without chest pain - 0.03-0.04, suspect demand in setting of sepsis, no report of ekg ischemic changes Chronic anemia with most recent hgbs 11s, known CARLENE- drop to 9.7 then 8.9 with sepsis fluids, will monitor for bleeding from wound, no other apparent bleeding, serial hgbs, begin anemia work up, hold pharm vte ppx Hypokalemia- replete and cont to monitor Low TSH and elevated free T4 with hx Hypothyroidism on synthroid- hold further doses, thyroid US reviewed, resume at lower dose prior to dc, outpt fu for repeat testing in 6-8 weeks Left foot blister with skin discoloration- podiatry consulted by night team, XR without osteo signs further diagnoses and plan as noted by resident dispo- SW working with family in effort to place in ecf <Flor Ochoa N - Last Filed: 08/04/18 18:58> Hospitalist Progress Note - Encounter Date of Encounter: 08/04/18 Time of Encounter: 13:13 - Subjective Interval History: The patient is resting comfortably in bed at time of examination. She has no significant updates today and says that she is feeling better than when she arrived hospital. Overall she has no significant complaints today. She does say that she has some pain but it is not significant. She has no nausea or vomiting today. She also complains of no chest pain or shortness of breath. Her back does hurt some today but she says that it does not too severe. She did have an x-ray of her foot overnight due to concern for worsening blister which did not demonstrate any evidence for osteomyelitis. - Exam Vitals: Temp Pulse Resp BP Pulse Ox 98.9 F 90 15 110/69 94 08/04/18 06:23 08/04/18 06:23 08/04/18 06:23 08/04/18 06:23 08/04/18 06:23 Exam: GENERAL: Elderly female in no acute distress. HEENT: Atraumatic and normocephalic. CARDIOVASCULAR: Regular rate and rhythm. S1 and S2 present. No murmurs, gallops, or rubs. RESPIRATORY:CTA bilaterally. Chest rises and falls symmetrically with respirat ion. No accessory muscle use noted. GASTROINTESTINAL: Active bowel sounds 4 quadrants. Abdomen soft, nontender, nondistended. EXTREMITIES: No clubbing, cyanosis, or edema present. NEUROLOGIC: Patient is cooperative with exam and answers questions appropriately. No apparent focal deficits. - Assessment and Plan (1) Sepsis Current Visit: Yes Status: Acute Assessment and Plan: Sepsis secondary to sacral decubitus ulcer, improving Criteria include tachycardia with heart rate greater than 90, WBC 39 on arrival, down to 16.5, source decubitus ulcer. Vital signs appear stable, patient is afebrile and heart rate trending down WBCs have trended down over the course of admission Broad-spectrum antibiotics, currently on vancomycin and Zosyn day 3 Blood cultures and wound cultures are pending We will continue broad-spectrum antibiotics, maintenance fluids Surgery gave recommendations for wound care, no debridement necessary. Signed off Wound care as needed (2) Decubitus ulcer of sacral region, stage 2 Current Visit: Yes Status: Acute Assessment and Plan: Large sacral decubitus ulcer, source of sepsis Patient was in significant amount of pain Wound cultures currently pending, treating with Zosyn and vancomycin Surgery was on board, recommended against debridement We will continue to treat with IV antibiotics We will treat wound with wound care as needed per surgery recommendations (3) Cellulitis Current Visit: Yes Status: Acute (4) Wound of foot Current Visit: Yes Status: Acute Assessment and Plan: Patient has left-sided foot blister with skin discoloration This is relatively new and it was noticed first by the night team It does not appear to be open or draining in any way X-ray overnight did not demonstrate any evidence for osteomyelitis Podiatry was consulted by night team, recommended Medix boots b/l for pressure protection Wound care instructions per podiatry note (5) Elevated troponin Current Visit: Yes Status: Acute Assessment and Plan: Likely related to demand ischemia in the setting of sepsis Patient denies chest pain, no significant shortness of breath EKG Showed sinus tach without ischemic changes (6) Anemia Current Visit: Yes Status: Acute Assessment and Plan: Acute blood loss anemia, source unknown This does appear to be new in comparison to prior visits Baseline hemoglobin appears to be ~11 on prior visits Possibly secondary to bleeding from decubitus ulcer We do have some concern that there could possibly be a GI source We have ordered an occult blood and a repeat H&H It has remained relatively stable throughout the day We will continue to monitor closely Consider GI consult pending Occult blood (7) Hyperthyroidism Current Visit: Yes Status: Resolved Assessment and Plan: Hyperthyroidism as demonstrated on labs at time of admission Patient has been treated for hypothyroidism with levothyroxine On admission, TSH was 0.028 Repeat TSH is 0.020. 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, but is hypoplastic We will plan to hold levothyroxine for 3 days, plan to restart at 100 g She will need a repeat TSH screening in 6-8 weeks as an outpatient (8) Hypokalemia Current Visit: Yes Status: Acute Assessment and Plan: Patient's K+ 3.2 today, up from 3.0 Replete with oral and IV Potassium Recheck in AM DVT Prophylaxis: Due to concern for bleeding, we have discontinued heparin on this patient We will use SCDs at this time - Time Spent with Patient Total time spent is greater than 50% in coordination of care (as documented) at patient's floor/unit and/or counseling patient: Internal Medicine: Result - Labs CBC & Chem 7: 08/04/18 14:17 08/04/18 05:50 Labs: Short CBC 08/03/18 08/04/18 Range/Units 16:35 05:50 WBC 15.0 H (4.3-11.1) K/mcL Hgb 9.5 L 8.9 L (11.5-15.4) g/dL Hct 28.9 L 27.0 L (35.3-44.9) % Plt Count 186 (140-400) K/mcL Neutrophils # 10.7 H (1.6-8.9) K/mcL BMP 08/04/18 05:50 Sodium 136 Potassium 3.2 L Chloride 107 Carbon Dioxide 24 BUN 12 Creatinine 0.49 L Glucose 102 Calcium 8.6 Liver Function 08/04/18 Range/Units 05:50 Total Bilirubin 0.4 (0.3-1.0) mg/dL AST 9 L (13-39) Units/L ALT 8 (7-52) Units/L Alkaline Phosphatase 67 (34-104) Units/L Albumin 2.3 L (3.5-5.7) g/dL - ABG Interpretation ABG results: PT/INR, D-dimer PT 14.4 Seconds (9.4-12.1) H 08/01/18 17:42 - Impressions Impressions Foot X-Ray 08/03/18 20:24 IMPRESSION: 1. No radiographic findings to suggest acute osteomyelitis. 2. Diffuse osteopenia. RECOMMENDATION: MRI could be performed for further evaluation if there is further clinical concern for osteomyelitis. D/ / Tonio Loza MD / Tonio Loza MD Interpreting Provider: Tonio Loza MD Thyroid Ultrasound 08/04/18 09:30 IMPRESSION: 1. Atrophic, heterogeneous thyroid gland, compatible with patient's clinical history of thyroiditis. 2. No suspicious thyroid nodules are identified. D/ / 08/04/2018 10:31:59 Alex George MD / janessa Interpreting Provider: Alex George MD <Parris Brooks M - Last Filed: 08/04/18 13:58> (2) Cellulitis Qualifiers: Site of cellulitis: buttock Qualified Code(s): L03.317 - Cellulitis of buttock (3) Sepsis Qualifiers: Sepsis type: sepsis due to unspecified organism Qualified Code(s): A41.9 - Sepsis, unspecified organism <Flor Ochoa N - Last Filed: 08/04/18 18:58> (1) Sepsis Qualifiers: Sepsis type: sepsis due to unspecified organism Qualified Code(s): A41.9 - Sepsis, unspecified organism (3) Cellulitis Qualifiers: Site of cellulitis: buttock Qualified Code(s): L03.317 - Cellulitis of buttock (6) Anemia Qualifiers: Anemia type: unspecified type Qualified Code(s): D64.9 - Anemia, unspecified
--- NOTE | 2018-08-04 14:13 | Podiatry Consult Note ---
Date of Encounter: 08/04/18 Time of Encounter: 12:00 Assessment and Plan (1) Suspected deep tissue injury Current visit: Yes Status: Acute ASSESSMENT: Suspected DTI to the plantar aspect of the left foot sub mt head #5 unknown length of time, unknown mechanism of pressure PLAN: Discussed with patient that a large bullous lesion was noted to the plantar aspect of foot and needed to be drained to release pressure, verbal consent obtained at bedside Cleansed with saline Painted with betadine Punctured roof of lesion with sterile 18g blunt fill needle, did not extend past the dermis A moderate amount of serosang fluid was released from lesion At this time cultures both aerobic and anaerobic were obtained and placed at bedside for nursing staff No appearance of infection was noted at this time xray negative for osteomyelitis - patient has large sacral ulceration which is likely source of infection Nursing staff informed to place adaptic, 4x4 and kerlix to wound at this time Wound care was in to see patient shorty after our consult and recommends application of Medihoney gel to the wounds - cover with Allevyn Foam Dressing (multisite to the sacrum and small on the foot) - change daily- please follow dressing orders Apply heel medix boots bilaterally for protection Offload at all times Appears related to possible pressure to bottom of foot from foot board or other object from home, please inform family to look for source of pressure and remove. Will continue to follow History of Present Illness HPI: Ms. Denny is a 82 year old female with pmh significant for CHF, HTN, prior CVA with residual L side weakness, hypothyroidism and osteoporosis. Patient presented to the ED with sacral pain which has been progressing x2 weeks. Patient reports minimal movement out of bed x2 weeks. Podiatry has been consulted regarding blister/wound of the left foot. Patient states she is unaware what wound looks like, when or how it started and if there has been any injury. Patient reports foot is sore. Unable to describe pain. Patient has minimal movement of the LLE. Patient was admitted with wbc 39.5 and started on IV antibiotics. She is responding well and wbc was noted to be 15 today and patient is afebrile. Patient denies any known chills, n/v or fls. No family at bedside at this time. Patient is a poor historian. General surgery is following in regards to a large sacral ulceration which has been determined to likely be the cause of the elevated WBC. Xrays were obtained of the left foot and were negative for osteomyelitis. Past Med Surg Social Fam HX - Past Medical History Medical history: CHF, CVA, GERD, hypertension, osteoporosis, thyroid disease Additional medical history: Lupus, Psychiatric history: no psych history - Past Surgical History Surgical History: hysterectomy, other Additional surgical history: per medical record - Social History Smoking Status: Current every day smoker Packs per day: 1/2 Smokeless Tobacco Status: No Alcohol use: none Drug use: none - Family History Mother Hx Family Cardiac Disorders: Yes ([place]) Brother Hx Family Cancer: Yes (prostate) Medications and Allergies Docusate [Colace] 100 mg PO DAILY PRN 11/02/16 [History] Baclofen [Lioresal] 10 mg PO BID 12/01/16 [History] Celecoxib [Celebrex] 100 mg PO DAILY 12/01/16 [History] Cholecalciferol (D-3) [Vitamin D] 5,000 unit PO BID 12/01/16 [History] DULoxetine [Cymbalta] 30 mg PO DAILY 12/01/16 [History] Esomeprazole Magnesium [Nexium] 40 mg PO DAILY 12/01/16 [History] Levothyroxine [Synthroid] 150 mcg PO DAILY 12/01/16 [History] PARoxetine HCl [Paroxetine HCl] 10 mg PO QAM 12/01/16 [History] Buspirone HCl [Buspar] 5 mg PO BID 07/04/18 [History] Hydrocodone/Acetaminophen [[place] 10-325 Tablet] 1 tab PO Q6H PRN 07/04/18 [History] Lisinopril 2.5 mg PO DAILY 07/04/18 [History] Spironolactone 25 mg PO QAM 07/04/18 [History] Temazepam [Restoril] 30 mg PO HS 07/04/18 [History] Amlodipine Besylate 5 mg PO DAILY 08/03/18 [History] Pregabalin [Lyrica] 150 mg PO BID 08/03/18 [History] Allergy/AdvReac Type Severity Reaction Status Date / Time Iodinated Contrast- Oral and Allergy See Verified 11/02/16 12:33 IV Dye Comments [Iodinated Contrast Media - Oral and] All Systems Reviewed: as per HPI Physical Exam - Constitutional Vitals: Temp Pulse Resp BP Pulse Ox 98.3 F 85 18 100/63 91 08/04/18 11:00 08/04/18 11:00 08/04/18 11:00 08/04/18 11:00 08/04/18 11:00 Exam: CONSTITUTIONAL: awake alert and oriented- poor historian VASCULAR: Pulses palpable 2/4 PT/DP bilaterally, cap refill <3seconds, warm toes to tibia, no calf pain with manual compression NEUROLOGICAL: intact sensation to light and moderate touch MUSCULOSKELETAL: minimal movement of LLE. Slightly contracted at knee, s/p CVA with left sided weakness SKIN: see documentation on foot assessment- large bullous lesion noted to plantar aspect of left foot without obvious signs of infection. Findings consistent with DTI. No other ulcerations, lesions or rashes noted. - Expanded Lower Extremities Exam 1 - large serosang fluid filled bullous lesion [id number]. No surrounding edema, warmth or erythema. Dark purple discoloration consistent with deep tissue injury to area. Lesion was punctured and a moderate amount of serosang fluid was released without evidence of purulent drainage or odor. no underlying fluctuance was noted on exam. No appearance of abscess or cellulitis. Results - Labs Result Diagrams: 08/04/18 05:50 08/04/18 05:50 Labs: Abnormal lab results WBC 15.0 K/mcL (4.3-11.1) H 08/04/18 05:50 RBC 3.21 M/mcL (3.82-4.97) L 08/04/18 05:50 Hgb 8.9 g/dL (11.5-15.4) L 08/04/18 05:50 Hct 27.0 % (35.3-44.9) L 08/04/18 05:50 MCH 27.7 pg (28.0-33.3) L 08/04/18 05:50 MPV 12.8 fL (9.4-12.4) H 08/04/18 05:50 Neutrophils # 10.7 K/mcL (1.6-8.9) H 08/04/18 05:50 Hypersegmented Neuts Present (Not Present) A 08/01/18 17:42 PT 14.4 Seconds (9.4-12.1) H 08/01/18 17:42 Potassium 3.2 mEq/L (3.5-5.1) L 08/04/18 05:50 Creatinine 0.49 mg/dL (0.60-1.20) L 08/04/18 05:50 Iron < 10 mcg/dL (50-170) L 08/02/18 02:11 Transferrin 139 mg/dL (203-362) L 08/02/18 02:11 AST 9 Units/L (13-39) L 08/04/18 05:50 Troponin I 0.04 ng/mL (< 0.04) H* 08/03/18 07:46 Serum Total Protein 4.4 g/dL (6.4-8.9) L 08/04/18 05:50 Albumin 2.3 g/dL (3.5-5.7) L 08/04/18 05:50 Globulin 2.1 g/dL (2.4-3.5) L 08/04/18 05:50 TSH 0.020 mcIU/mL (0.340-5.600) L 08/03/18 07:46 Free T4 2.25 ng/dl (0.70-2.00) H 08/03/18 07:46 Free T3 1.57 pg/mL (2.50-3.90) L 08/03/18 07:46 Urine Ketones Trace mg/dL (Negative) H 08/01/18 18:00 Urine Bilirubin Small (Negative) H 08/01/18 18:00 Ur Leukocyte Esterase Trace (Negative) H 08/01/18 18:00 Urine Microscopic WBC 3-5 per hpf (0-3) H 08/01/18 18:00 Ur Squamous Epith Cells Many per lpf (None-Few) H 08/01/18 18:00 Urine Bacteria Many per hpf (None-Few) H 08/01/18 18:00 Ur Culture Indicated? NO. (NO) A 08/01/18 18:00 H & H 08/03/18 08/04/18 Range/Units 16:35 05:50 Hgb 9.5 L 8.9 L (11.5-15.4) g/dL Hct 28.9 L 27.0 L (35.3-44.9) % All other labs normal. Consult Discharge Plan - Plan Referrals: NONE,PCP [Primary Care Provider] -
[2018-08-04 14:33] LABS: Basophils % 0.2 %; Eosinophils # 0.3 K/mcL (0.0-0.6); Eosinophils % 1.5 %; Hematocrit 30.3 % (35.3-44.9); Hemoglobin 9.8 g/dL (11.5-15.4); Immature Granulocytes % 0.7 % (0-4); Lymphocytes # 2.6 K/mcL (0.6-4.6); Lymphocytes % 15.6 %; Mean Corpuscular HGB Conc 32.3 g/dL (31.6-35.5); Mean Corpuscular Hemoglobin 27.5 pg (28.0-33.3); Mean Corpuscular Volume 85.1 fL (83.0-100.0); Mean Platelet Volume 12.8 fL (9.4-12.4); Monocytes # 1.1 K/mcL (0.0-1.3); Monocytes % 6.5 %; Neutrophils # 12.4 K/mcL (1.6-8.9); Platelet Count 207 K/mcL (140-400); Red Blood Count 3.56 M/mcL (3.82-4.97); Red Cell Distribution Width 13.6 % (11.5-14.5); Segmented Neutrophils % 75.5 %
[2018-08-04] MEDS: Leptospermum Honey Gel 44 ML TUBE TP SCH (14:40)
[2018-08-04 15:41] LABS: Bilirubin,Urine Negative (Negative); Blood,Urine Trace (Negative); Clarity,Urine Cloudy (Clear); Color,Urine Yellow (Yellow); Glucose,Urine (UA) Normal (Normal); Ketones,Urine Negative (Negative); Leukocyte Esterase,Urine Moderate (Negative); Nitrite,Urine Negative (Negative); Protein,Urine Negative (Neg-Trace); Specific Gravity,Urine 1.019 (1.010-1.025); Urobilinogen,Urine Normal (Normal)
[2018-08-04 15:43] LABS: Bacteria,Urine None Seen per hpf (None-Few); Squamous Epithelial Cell,Urine Many per lpf (None-Few); WBC,Urine 50-100 per hpf (0-3)
[2018-08-04 15:54] LABS: Yeast,Urine Many per hpf (None Seen)
[2018-08-04 15:55] LABS: RBC,Urine 0-3 per hpf (0-3); Renal Epithelial Cells,Urine Few per hpf (None-Few); Transitional Epi Cells,Urine Few per hpf (None-Few)
[2018-08-04] MEDS ORDERED: Potassium Chloride 40 MEQ, Lidocaine 1% 2 ML in D5% in Water 500 ML IVPB ONE (18:07)
[2018-08-04] MEDS: Temazepam 15 MG CAPSULE PO SCH (23:08)
[2018-08-05 06:40] LABS: Basophils # 0.1 K/mcL (0.0-0.2); Basophils % 0.5 %; Eosinophils # 0.3 K/mcL (0.0-0.6); Eosinophils % 2.4 %; Hematocrit 27.2 % (35.3-44.9); Hemoglobin 9.1 g/dL (11.5-15.4); Immature Granulocytes % 0.5 % (0-4); Lymphocytes # 2.8 K/mcL (0.6-4.6); Lymphocytes % 21.8 %; Mean Corpuscular HGB Conc 33.5 g/dL (31.6-35.5); Mean Corpuscular Hemoglobin 27.6 pg (28.0-33.3); Mean Corpuscular Volume 82.4 fL (83.0-100.0); Mean Platelet Volume 12.7 fL (9.4-12.4); Monocytes % 7.4 %; Neutrophils # 8.7 K/mcL (1.6-8.9); Platelet Count 182 K/mcL (140-400); Red Cell Distribution Width 13.5 % (11.5-14.5); Segmented Neutrophils % 67.4 %
[2018-08-05 07:01] LABS: BUN/Creatinine Ratio 14 (6-26); Blood Urea Nitrogen 6 mg/dL (8-23); Calcium 8.6 mg/dL (8.6-10.3); Carbon Dioxide 24 mEq/L (23-29); Chloride 102 mEq/L (98-107); Glucose 90 mg/dL (70-105); Osmolality,Calculated 269 (280-300); Potassium 3.6 mEq/L (3.5-5.1); Sodium 131 mEq/L (136-145); eGFR For Non-African Americans > 60 (> 60)
[2018-08-05] MEDS: Piperacillin/Tazobactam 3.375 GM in 0.9 % Sodium Chloride Mini Bag 100 ML IVPB SCH ×2 (07:47→16:45)
[2018-08-05] MEDS: Aspirin 81 MG TAB.CHEW PO SCH (07:50)
[2018-08-05] MEDS: Pregabalin 75 MG CAPSULE PO SCH ×2 (07:51→22:21)
--- NOTE | 2018-08-05 08:35 | Internal Med Progress Note ---
<Parris Brooks - Last Filed: 08/05/18 12:38> Hospitalist Progress Note - Encounter Date of Encounter: 08/05/18 - Exam Vitals: Temp Pulse Resp BP Pulse Ox 97.2 F L 100 14 121/77 95 08/05/18 11:54 08/05/18 11:54 08/05/18 11:54 08/05/18 11:54 08/05/18 11:54 - Assessment and Plan (1) Decubitus ulcer of sacral region, stage 2 Current Visit: Yes Status: Acute (2) Cellulitis Current Visit: Yes Status: Acute (3) Sepsis Current Visit: Yes Status: Acute (4) Elevated troponin Current Visit: Yes Status: Acute (5) Anemia Current Visit: Yes Status: Acute (6) Hyperthyroidism Current Visit: Yes Status: Resolved (7) Wound of foot Current Visit: Yes Status: Acute (8) Hypokalemia Current Visit: Yes Status: Acute - Time Spent with Patient Total time spent is greater than 50% in coordination of care (as documented) at patient's floor/unit and/or counseling patient: Internal Medicine: Result - Labs CBC & Chem 7: 08/05/18 05:56 08/05/18 05:56 Labs: Short CBC 08/04/18 08/05/18 Range/Units 14:17 05:56 WBC 16.5 H 12.9 H (4.3-11.1) K/mcL Hgb 9.8 L 9.1 L (11.5-15.4) g/dL Hct 30.3 L 27.2 L (35.3-44.9) % Plt Count 207 182 (140-400) K/mcL Neutrophils # 12.4 H 8.7 (1.6-8.9) K/mcL BMP 08/05/18 05:56 Sodium 131 L Potassium 3.6 Chloride 102 Carbon Dioxide 24 BUN 6 L Creatinine 0.44 L Glucose 90 Calcium 8.6 Urine 08/04/18 Range/Units 15:37 Urine Color Yellow (Yellow) Urine Clarity Cloudy A (Clear) Urine pH 6.0 (5.0-8.0) pH Units Ur Specific [place] 1.019 (1.010-1.025) Urine Protein Negative (Neg-Trace) mg/dL Urine Glucose (UA) Normal (Normal) mg/dL - ABG Interpretation ABG results: PT/INR, D-dimer PT 14.4 Seconds (9.4-12.1) H 08/01/18 17:42 Consult Discharge Plan - Plan Referrals: NONE,PCP [Primary Care Provider] - - Attending Attestation I examined this patient and my medical decision-making was reviewed with the Resident Physician Dr Ochoa. I agree with the documented findings, disposition and treatment plan as described except to the extent set forth below. Ms Denny is admitted with infected sacral decub ulcer awake, pt care in room, she denies pain. denies fevers, chills. gen- alert, awake,appears stated age cv- reg rate and rhythm, normal s1,s2, no murmurs appreciated lungs- ctabl, no wheezing, rhonchi or crackles skin- sacral wound visualized, sacral ulcer with purulent drainage, surrounding erythema, and skin discoloration extending inferior toward rectum and buttock neuro- AAOxperson, hospital setting Sacral Decub Ulcer, infected- vanc + zosyn, bl cx ngtd, wound cxs has been collected and have not yet resulted,dressing as per surg Sepsis suspected to be 2/2 above as cxr, ua and ct a/p without acute infectious findings, resolved- dc ivfs Chronic anemia with most recent hgbs 11s, known CARLENE- cont down trend, no evidence bleeding at wound site, anemia work up started,hold pharm vte ppx at this time, cont to monitor Low TSH and elevated free T4 with hx Hypothyroidism on synthroid-resume synthroid at lower dose prior to dc, outpt fu for repeat testing in 6-8 weeks Left foot blister with skin discoloration- podiatry consulted and appreciate re cs, cxs sent, wound care, offloading heels hypomagnesemia- replete IV and cont to monitor further diagnoses and plan as noted by resident dispo- SW working with family in effort to place in ecf <Flor Ochoa N - Last Filed: 08/05/18 15:44> Hospitalist Progress Note - Encounter Date of Encounter: 08/05/18 Time of Encounter: 08:35 - Subjective Interval History: The patient is resting comfortably in bed at time of examination. She has no significant complaints today. She denies any fevers, chills, or pain. Nursing staff reports no acute overnight events. - Exam Vitals: Temp Pulse Resp BP Pulse Ox 98.0 F 87 16 147/79 99 08/05/18 07:10 08/05/18 07:10 08/05/18 07:10 08/05/18 07:10 08/05/18 08:27 Exam: GENERAL: Elderly female in no acute distress. HEENT: Atraumatic and normocephalic. CARDIOVASCULAR: Regular rate and rhythm. S1 and S2 present. No murmurs, gallops, or rubs. RESPIRATORY: CTA bilaterally. Chest rises and falls symmetrically with respiration. No accessory muscle use noted. GASTROINTESTINAL: Active bowel sounds 4 quadrants. Abdomen soft, nontender, nondistended. EXTREMITIES: No clubbing, cyanosis, or edema present. Soft boots present on bilateral LE. NEUROLOGIC: Patient is cooperative with exam and answers questions appropriately. - Assessment and Plan (1) Sepsis Current Visit: Yes Status: Acute Assessment and Plan: Sepsis secondary to sacral decubitus ulcer, improving Criteria include tachycardia with heart rate greater than 90, WBC 39 on arrival, down to 16.5, source decubitus ulcer. Vital signs appear stable, patient is afebrile and heart rate trending down WBCs have trended down over the course of admission Broad-spectrum antibiotics, currently on vancomycin and Zosyn day 4 Blood cultures and wound cultures are negative to date We will continue broad-spectrum antibiotics; maintenance fluids discontinued today Surgery gave recommendations for wound care, no debridement necessary. Signed off Wound care as needed (2) Decubitus ulcer of sacral region, stage 2 Current Visit: Yes Status: Acute Assessment and Plan: Large sacral decubitus ulcer, source of sepsis Patient was in significant amount of pain Currently treating with Zosyn and vancomycin Surgery was on board, recommended against debridement We will continue to treat with IV antibiotics We will treat wound with wound care as needed per surgery recommendations (3) Cellulitis Current Visit: Yes Status: Acute Assessment and Plan: -Large sacral decubitus ulcer with surrounding cellulitis -Management as above in sepsis assessment (4) Wound of foot Current Visit: Yes Status: Acute Assessment and Plan: Patient has left-sided foot blister with skin discoloration This is relatively new and it was noticed first by the night team It does not appear to be open or draining in any way X-ray did not demonstrate any evidence for osteomyelitis Podiatry recommended Medix boots b/l for pressure protection Wound care instructions per podiatry note (5) Elevated troponin Current Visit: Yes Status: Acute Assessment and Plan: Likely related to demand ischemia in the setting of sepsis Patient denies chest pain, no significant shortness of breath EKG Showed sinus tach without ischemic changes Will continue monitoring (6) Anemia Current Visit: Yes Status: Acute Assessment and Plan: Acute blood loss anemia, source unknown This does appear to be new in comparison to prior visits Baseline hemoglobin appears to be ~11 on prior visits Possibly secondary to bleeding from decubitus ulcer Stool occult negative; repeat H&H yesterday was stable. Patient did have further decrease in hemoglobin today; however, suspect some dilutional effect due to recent IV fluids. We will continue to monitor closely Iron studies, B12, and folate levels pending (7) Hyperthyroidism Current Visit: Yes Status: Resolved Assessment and Plan: Hyperthyroidism as demonstrated on labs at time of admission Patient has been treated for hypothyroidism with levothyroxine On admission, TSH was 0.028 Repeat TSH is 0.020. 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, but is hypoplastic We will plan to hold levothyroxine for an additional day, then restart at 100 g She will need a repeat TSH screening in 6-8 weeks as an outpatient DVT Prophylaxis: SCDs - Time Spent with Patient Total time spent is greater than 50% in coordination of care (as documented) at patient's floor/unit and/or counseling patient: Internal Medicine: Result - Labs CBC & Chem 7: 08/05/18 05:56 08/05/18 05:56 Labs: Short CBC 08/04/18 08/05/18 Range/Units 14:17 05:56 WBC 16.5 H 12.9 H (4.3-11.1) K/mcL Hgb 9.8 L 9.1 L (11.5-15.4) g/dL Hct 30.3 L 27.2 L (35.3-44.9) % Plt Count 207 182 (140-400) K/mcL Neutrophils # 12.4 H 8.7 (1.6-8.9) K/mcL BMP 08/05/18 05:56 Sodium 131 L Potassium 3.6 Chloride 102 Carbon Dioxide 24 BUN 6 L Creatinine 0.44 L Glucose 90 Calcium 8.6 Urine 08/04/18 Range/Units 15:37 Urine Color Yellow (Yellow) Urine Clarity Cloudy A (Clear) Urine pH 6.0 (5.0-8.0) pH Units Ur Specific [place] 1.019 (1.010-1.025) Urine Protein Negative (Neg-Trace) mg/dL Urine Glucose (UA) Normal (Normal) mg/dL - ABG Interpretation ABG results: PT/INR, D-dimer PT 14.4 Seconds (9.4-12.1) H 08/01/18 17:42 - Impressions Impressions Thyroid Ultrasound 08/04/18 09:30 IMPRESSION: 1. Atrophic, heterogeneous thyroid gland, compatible with patient's clinical history of thyroiditis. 2. No suspicious thyroid nodules are identified. D/ / 08/04/2018 10:31:59 Alex George MD / janessa Interpreting Provider: Alex George MD <Parris Brooks M - Last Filed: 08/05/18 12:38> (2) Cellulitis Qualifiers: Site of cellulitis: buttock Qualified Code(s): L03.317 - Cellulitis of buttock (3) Sepsis Qualifiers: Sepsis type: sepsis due to unspecified organism Qualified Code(s): A41.9 - Sepsis, unspecified organism (5) Anemia Qualifiers: Anemia type: unspecified type Qualified Code(s): D64.9 - Anemia, unspecified <Flor Ochoa N - Last Filed: 08/05/18 15:44> (1) Sepsis Qualifiers: Sepsis type: sepsis due to unspecified organism Qualified Code(s): A41.9 - Sepsis, unspecified organism (3) Cellulitis Qualifiers: Site of cellulitis: buttock Qualified Code(s): L03.317 - Cellulitis of buttock (6) Anemia Qualifiers: Anemia type: unspecified type Qualified Code(s): D64.9 - Anemia, unspecified
[2018-08-05 09:07] LABS: Phosphorous 1.8 mg/dL (2.7-4.5)
[2018-08-05] MEDS: Leptospermum Honey Gel 44 ML TUBE TP SCH (09:40)
[2018-08-05] MEDS ORDERED: Furosemide 40 MG/4 ML VIAL IVP ONE (11:30)
[2018-08-05 13:12] LABS: % Iron Saturation 25 % (15-50); Iron 50 mcg/dL (50-170); Transferrin 145 mg/dL (203-362)
[2018-08-05 13:29] LABS: Ferritin 227 ng/mL (10-120)
[2018-08-05 13:35] LABS: Folate 6.2 ng/mL (3.0-16.0)
[2018-08-05] MEDS: *HR* OxyCODONE Immed Rel 5 MG TABLET PO PRN (16:44)
[2018-08-05] MEDS: Temazepam 15 MG CAPSULE PO SCH (22:20)
[2018-08-06] MEDS: Piperacillin/Tazobactam 3.375 GM in 0.9 % Sodium Chloride Mini Bag 100 ML IVPB SCH ×2 (00:56→10:17)
[2018-08-06 06:37] LABS: Basophils # 0.1 K/mcL (0.0-0.2); Basophils % 0.4 %; Eosinophils # 0.3 K/mcL (0.0-0.6); Eosinophils % 2.6 %; Hemoglobin 9.5 g/dL (11.5-15.4); Immature Granulocytes % 0.6 % (0-4); Lymphocytes # 2.4 K/mcL (0.6-4.6); Lymphocytes % 18.9 %; Mean Corpuscular HGB Conc 33.9 g/dL (31.6-35.5); Mean Corpuscular Hemoglobin 27.5 pg (28.0-33.3); Mean Corpuscular Volume 81.2 fL (83.0-100.0); Mean Platelet Volume 12.3 fL (9.4-12.4); Monocytes # 0.9 K/mcL (0.0-1.3); Monocytes % 7.2 %; Neutrophils # 8.9 K/mcL (1.6-8.9); Platelet Count 199 K/mcL (140-400); Red Blood Count 3.45 M/mcL (3.82-4.97); Red Cell Distribution Width 13.3 % (11.5-14.5); Segmented Neutrophils % 70.3 %
[2018-08-06 06:59] LABS: BUN/Creatinine Ratio 10 (6-26); Blood Urea Nitrogen 5 mg/dL (8-23); Calcium 8.4 mg/dL (8.6-10.3); Carbon Dioxide 27 mEq/L (23-29); Chloride 101 mEq/L (98-107); Glucose 87 mg/dL (70-105); Osmolality,Calculated 277 (280-300); Potassium 2.8 mEq/L (3.5-5.1); Sodium 135 mEq/L (136-145); eGFR For Non-African Americans > 60 (> 60)
[2018-08-06] MEDS ORDERED: Aminoglycoside Consult 1 EACH MC ONE (07:33)
--- NOTE | 2018-08-06 08:58 | Internal Med Progress Note ---
<Flor Ochoa N - Last Filed: 08/06/18 19:38> Hospitalist Progress Note - Encounter Date of Encounter: 08/06/18 Time of Encounter: 08:58 - Subjective Interval History: The patient is resting comfortably in bed at time of examination. She reports that everything she eats "goes right through her". She denies any fevers or chil ls. Nursing staff reports that the patient has had two formed bowel movements today. Patient denies any other acute complaints or concerns at this time. - Exam Vitals: Temp Pulse Resp BP Pulse Ox 98.6 F 100 16 137/85 94 08/06/18 07:40 08/06/18 07:40 08/06/18 07:40 08/06/18 07:40 08/06/18 07:40 Exam: GENERAL: Elderly female in no acute distress. HEENT: Atraumatic and normocephalic. CARDIOVASCULAR: Regular rate and rhythm. S1 and S2 present. No murmurs, gallops, or rubs. RESPIRATORY: CTA bilaterally. Chest rises and falls symmetrically with respiration. No accessory muscle use noted. GASTROINTESTINAL: Active bowel sounds 4 quadrants. Abdomen soft, nontender, nondistended. EXTREMITIES: No clubbing, cyanosis, or edema present. Soft boots present on bilateral LE with SCDs in place. NEUROLOGIC: Patient is cooperative with exam and answers questions appropriately. - Assessment and Plan (1) Decubitus ulcer of sacral region, stage 2 Current Visit: Yes Status: Acute Assessment and Plan: Large sacral decubitus ulcer, source of sepsis Patient was in significant amount of pain Initially treated with Zosyn and vancomycin; both were discontinued today per ID recommendations Surgery was on board, recommended against debridement We will continue to treat with IV antibiotics; currently treating with rocephin 2g daily We will treat wound with wound care as needed per surgery recommendations (2) Anemia Current Visit: Yes Status: Chronic Assessment and Plan: Acute blood loss anemia, source unknown This does appear to be new in comparison to prior visits Baseline hemoglobin appears to be ~11 on prior visits Possibly secondary to bleeding from decubitus ulcer Stool occult negative; H&H appear stable We will continue to monitor closely (3) Hyperthyroidism Current Visit: Yes Status: Resolved Assessment and Plan: Hyperthyroidism as demonstrated on labs at time of admission Patient has been treated for hypothyroidism with levothyroxine On admission, TSH was 0.028 Repeat TSH is 0.020. 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, but is hypoplastic Plan to restart synthroid tomorow She will need a repeat TSH screening in 6-8 weeks as an outpatient (4) Wound of foot Current Visit: Yes Status: Acute Assessment and Plan: Patient has left-sided foot blister with skin discoloration This is relatively new and it was noticed first by the night team It does not appear to be open or draining in any way X-ray did not demonstrate any evidence for osteomyelitis Podiatry recommended Medix boots b/l for pressure protection Wound care instructions per podiatry note (5) Sepsis Current Visit: Yes Status: Acute Assessment and Plan: Sepsis secondary to sacral decubitus ulcer, improving Criteria include tachycardia with heart rate greater than 90, WBC 39 on arrival, down to 16.5, source decubitus ulcer. Vital signs appear stable, patient is afebrile and heart rate trending down WBCs have trended down over the course of admission Blood cultures and wound cultures are negative to date We will continue broad-spectrum antibiotics; maintenance fluids discontinued Surgery gave recommendations for wound care, no debridement necessary. Signed off Wound care as needed Appreciate infectious disease recommendations regarding antimicrobial therappy (6) Hypokalemia Current Visit: Yes Status: Acute Assessment and Plan: Patient again demonstrated hypokalemia on AM labs, with a serum potassium of 2.8. - Repleted potassium PO and IV - Will recheck with AM labs - Will assess magnesium tomorrow morning as well DVT Prophylaxis: SCDs - Time Spent with Patient Total time spent is greater than 50% in coordination of care (as documented) at patient's floor/unit and/or counseling patient: Internal Medicine: Result - Labs CBC & Chem 7: 08/06/18 05:50 08/06/18 05:50 Labs: Short CBC 08/06/18 Range/Units 05:50 WBC 12.6 H (4.3-11.1) K/mcL Hgb 9.5 L (11.5-15.4) g/dL Hct 28.0 L (35.3-44.9) % Plt Count 199 (140-400) K/mcL Neutrophils # 8.9 (1.6-8.9) K/mcL BMP 08/06/18 05:50 Sodium 135 L Potassium 2.8 L Chloride 101 Carbon Dioxide 27 BUN 5 L Creatinine 0.52 L Glucose 87 Calcium 8.4 L - ABG Interpretation ABG results: PT/INR, D-dimer PT 14.4 Seconds (9.4-12.1) H 08/01/18 17:42 Consult Discharge Plan - Plan Referrals: NONE,PCP [Primary Care Provider] - <Yemi Edwards - Last Filed: 08/07/18 21:48> Hospitalist Progress Note - Encounter Date of Encounter: 08/07/18 - Exam Vitals: Temp Pulse Resp BP Pulse Ox 98.6 F 103 14 136/87 96 08/07/18 19:07 08/07/18 19:07 08/07/18 19:07 08/07/18 19:07 08/07/18 19:07 - Assessment and Plan (1) Decubitus ulcer of sacral region, stage 2 Current Visit: Yes Status: Acute (2) Anemia Current Visit: Yes Status: Chronic (3) Hyperthyroidism Current Visit: Yes Status: Resolved (4) Wound of foot Current Visit: Yes Status: Acute (5) Hypokalemia Current Visit: Yes Status: Acute - Time Spent with Patient Total time spent is greater than 50% in coordination of care (as documented) at patient's floor/unit and/or counseling patient: Internal Medicine: Result - Labs CBC & Chem 7: 08/07/18 10:44 08/07/18 09:41 Labs: Short CBC 08/07/18 Range/Units 10:44 WBC 16.4 H (4.3-11.1) K/mcL Hgb 11.8 D (11.5-15.4) g/dL Hct 36.5 (35.3-44.9) % Plt Count 268 (140-400) K/mcL Neutrophils # 11.8 H (1.6-8.9) K/mcL BMP 08/07/18 09:41 Sodium 136 Potassium 3.1 L Chloride 99 Carbon Dioxide 28 BUN 4 L Creatinine 0.49 L Glucose 87 Calcium 9.1 - ABG Interpretation ABG results: PT/INR, D-dimer PT 14.4 Seconds (9.4-12.1) H 08/01/18 17:42 - Attending Attestation I examined this patient and my medical decision-making was reviewed with the Resident Physician. I agree with the documented findings, disposition and treatment plan as described except to the extent set forth below. <Flor Ochoa - Last Filed: 08/06/18 19:38> (2) Anemia Qualifiers: Anemia type: unspecified type Qualified Code(s): D64.9 - Anemia, unspecified (5) Sepsis Qualifiers: Sepsis type: sepsis due to unspecified organism Qualified Code(s): A41.9 - Sepsis, unspecified organism <Yemi Edwards - Last Filed: 08/07/18 21:48> (2) Anemia Qualifiers: Anemia type: unspecified type Qualified Code(s): D64.9 - Anemia, unspecified
[2018-08-06] MEDS: Pregabalin 75 MG CAPSULE PO SCH ×2 (10:16→21:01)
[2018-08-06] MEDS: Aspirin 81 MG TAB.CHEW PO SCH (10:17)
[2018-08-06] MEDS: Leptospermum Honey Gel 44 ML TUBE TP SCH (10:18)
--- NOTE | 2018-08-06 13:44 | Infectious Disease Consult ---
Date of Encounter: 08/06/18 Time of Encounter: 13:50 Assessment and Plan (1) Sepsis Status: Acute Assessment and plan: The patient had two SIRS criteria with hypotension on admission. Likely secondary to sacral wound infection. Improved. WBC trending down. Hypotension has resolved. Continues to have some intermittent tachycardia. Blood cultures drawn 08/01/18 x 1 set and 08/02/18 x 2 sets are NGTD. Recommendations: Check ESR and CRP. Consider MRI of the pelvis to evaluate for osteomyelitis, but I am not sure if the patient could tolerate lying flat for that long. Wound care and aggressive offloading per surgery and wound care recommendations. Dressing changes to the left foot per Podiatry's recommendations. Discontinue Vancomycin. Discontinue Zosyn. Start Rocephin 2 grams IV Q24H. Duration of treatment depends on the clinical picture. Monitor renal function and dose-adjust antibiotics. Qualifiers: Sepsis type: sepsis due to unspecified organism Qualified Code(s): A41.9 - Sepsis, unspecified organism (2) Cellulitis Status: Acute Assessment and plan: Location: Sacral area. Likely secondary to decubitus ulcer. Causative organism: K. pneumoniae. Concern for underlying OM. Currently on Vanc and Zosyn. Qualifiers: Site of cellulitis: buttock Qualified Code(s): L03.317 - Cellulitis of buttock (3) Decubital ulcer Status: Acute Assessment and plan: Location: Sacrum. Etiology: pressure ulcer. Poor wound healing likely secondary to infection and poor nutritional status. General surgery consulted and following. CT of the abdomen and pelvis does not show fluid collection or osteomyelitis. Will check inflammatory markers and maybe an MRI if they are elevated and the patient can tolerate it. Qualifiers: Pressure injury location: sacral region Pressure injury stage: unspecified pressure injury stage Qualified Code(s): L89.159 - Pressure ulcer of sacral region, unspecified stage (4) Wound of foot Status: Acute Assessment and plan: Location: Left foot. Etiology unclear. X-ray negative for OM. Wound culture negative. Podiatry consulted and following. (5) Hypokalemia Status: Acute Assessment and plan: Management per the primary team. (6) Elevated troponin Status: Acute (7) Weakness Status: Chronic (8) Cervical myelopathy Status: Chronic (9) CVA (cerebral vascular accident) Status: Chronic Qualifiers: CVA mechanism: unspecified Qualified Code(s): I63.9 - Cerebral infarction, unspecified (10) Hypertension Status: Chronic Qualifiers: Hypertension type: unspecified Qualified Code(s): I10 - Essential (primary) hypertension (11) Anemia Status: Chronic Qualifiers: Anemia type: unspecified type Qualified Code(s): D64.9 - Anemia, unspecified Infectious Disease HPI - Data of Consult Patient: new to practice Consult date: 08/06/18 Requesting Physician: Yemi Edwards MD Primary Care Provider: PCP NONE - Consult Narrative Reason for consult: Sacral wound infection History of present illness: Ms. Denny is a 82 year old female 's medical history of CHF, CVA, GERD, hypertension, osteoporosis, thyroid disease, and lupus. The patient was admitted to the hospital 08/01/18 for weakness, cellulitis, and decubitus ulcer. We are consulted 08/06/18 he shunts for sacral wound infection. Briefly, the patient's a 82-year-old female with past medical history as stated above. The patient apparently presented to the emergency department via EMS with complaints of back pain, generalized weakness, and possible chest pain. Upon arrival, the patient was denying chest pain and only complained of back pain. Upon arrival, she was afebrile. She was tachycardic with mild hypotension. Laboratory studies revealed leukocytosis with neutrophilic predominance. Lactic acid, LFTs, renal function, and CK levels were normal. Urinalysis was obtained and was contaminated. She had a chest x-ray that was negative. CT of the head was negative. She does CT of the abdomen and pelvis that showed findings consistent with gallbladder sludge, but no other acute findings. Blood cultures were obtained 1 set. She was started on vancomycin and Zosyn and admitted to the hospital for further evaluation. Since admission, the patient has remained afebrile. She has had some intermittent tachycardia. Her leukocytosis has improved. She was evaluated by general surgery who made wound care recommendations, but did not recommend any surgical intervention at this time. Additional blood cultures 2 sets were obtained 08/02/18 and are no growth to date. She was noted to have a left foot ulceration and podiatry was consulted. She will left foot x-ray that was negative for osteomyelitis and a wound culture was obtained of the foot that was negative. Sacral wound culture was obtained and is positive for yeast species and Klebsiella pneumoniae. Currently, the patient is on vancomycin and Zosyn. We have been asked to evaluate and make further recommendations. During my exam today, the patient states that she has had chronic decubitus ulcers for the past several months. She reports the ulcer painfulness of made her come to the ER. She denies any fevers or chills or rigors. Denies chest pain, shortness of breath, or cough. Denies headache, weakness, or dizziness. She states she is unable to walk and spends most of her time lying in bed. She denies any nausea, vomiting, or constipation. She reports loose stools since being here in the hospital. She denies any oral thrush. She denies any pain except as previously mentioned. She states her appetite has been pretty good. She denies any urinary complaints prior to admission. The patient lives at home with her daughter. She smokes about a pack of ci garettes per day. Denies ETOH or drug abuse. Has a dog and several cats at home, but denies any bites or scratches. Denies chronic infectious diseases. Denies any recent travel. CC: Yemi Edwards MD Past Med Surg Social Fam HX - Past Medical History Attestation: Yes The following information was validated with the patient. Source: patient, old records reviewed, nursing notes reviewed Medical history: CHF, CVA, GERD, hypertension, osteoporosis, thyroid disease Additional medical history: Lupus, Psychiatric history: no psych history - Past Surgical History Surgical History: hysterectomy, other Additional surgical history: per medical record - Social History Smoking Status: Current every day smoker Packs per day: 1/2 Smokeless Tobacco Status: No Alcohol use: none Drug use: none Occupational status: unemployed Current living situation: Home, With Family Activity Level: Uses cane/walker, Mostly sedentary - Family History Brother Hx Family Cancer: Yes (prostate) Mother Hx Family Cardiac Disorders: Yes (NH) Infectious Disease-CN:Meds RX: Docusate [Colace] 100 mg PO DAILY PRN 11/02/16 [History] RX: Baclofen [Lioresal] 10 mg PO BID 12/01/16 [History] RX: Celecoxib [Celebrex] 100 mg PO DAILY 12/01/16 [History] RX: Cholecalciferol (D-3) [Vitamin D] 5,000 unit PO BID 12/01/16 [History] RX: DULoxetine [Cymbalta] 30 mg PO DAILY 12/01/16 [History] RX: Esomeprazole Magnesium [Nexium] 40 mg PO DAILY 12/01/16 [History] RX: Levothyroxine [Synthroid] 150 mcg PO DAILY 12/01/16 [History] RX: PARoxetine HCl [Paroxetine HCl] 10 mg PO QAM 12/01/16 [History] RX: Buspirone HCl [Buspar] 5 mg PO BID 07/04/18 [History] RX: Hydrocodone/Acetaminophen [[place] 10-325 Tablet] 1 tab PO Q6H PRN 07/04/18 [History] RX: Lisinopril 2.5 mg PO DAILY 07/04/18 [History] RX: Spironolactone 25 mg PO QAM 07/04/18 [History] RX: Temazepam [Restoril] 30 mg PO HS 07/04/18 [History] Amlodipine Besylate 5 mg PO DAILY 08/03/18 [History] Pregabalin [Lyrica] 150 mg PO BID 08/03/18 [History] Allergy/AdvReac Type Severity Reaction Status Date / Time Iodinated Contrast- Oral and Allergy See Verified 11/02/16 12:33 IV Dye Comments [Iodinated Contrast Media - Oral and] All systems: reviewed and no additional remarkable complaints except as stated Exam - Constitutional Vitals: Temp Pulse Resp BP Pulse Ox 98.6 F 105 15 131/81 95 08/06/18 11:35 08/06/18 11:35 08/06/18 11:35 08/06/18 11:35 08/06/18 11:35 General appearance: average body habitus, cooperative, no acute distress - Head Head exam: Present: atraumatic, normal inspection, normocephalic - Eye Eye exam: Present: EOMI, normal appearance, PERRL Pupils: Present: normal accommodation - ENT ENT exam: Present: mucous membranes moist - Neck Neck exam: Present: normal inspection - Respiratory Respiratory exam: Present: CTAB. Absent: rales, respiratory distress, rhonchi, wheezes - Cardiovascular Cardiovascular exam: Present: RRR, +S1, +S2 - GI/Abdominal GI/Abdominal exam: Present: normal bowel sounds, soft. Absent: distended, tenderness Additional comments: Incontinent of loose brown stool. Oleary catheter noted to be draining clear yellow urine. - Extremities Exam Extremities exam: Absent: joint swelling, normal inspection (Left foot dressing C/D/I.), pedal edema, tenderness - Back Exam Additional comments: Large stage III decubitus ulcer noted to the sacral and coccygeal areas. No foul odor or drainage noted. Wound bed is beefy red. Mild surrounding erythema noted. - Neurological Exam Neurological exam: Present: alert, oriented X3. Absent: facial droop, speech deficit - Psychiatric Psychiatric exam: Present: normal affect, normal mood - Skin Skin exam: Present: dry, intact, normal color, warm Infectious Disease CN: Results - Labs CBC & Chem 7: 08/06/18 05:50 08/06/18 05:50 Cultures: Cultures 08/03/18 11:05 Wound Culture - Preliminary Other-Specify in Comments Klebsiella pneu.ssp pneumoniae Yeast Species 08/04/18 15:00 Wound Culture - Preliminary Left Foot No growth. 08/02/18 02:25 Blood Culture - Preliminary Peripheral Venipuncture Culture is incubating and being continuously monitored for growth. Final report to follow. 08/02/18 02:11 Blood Culture - Preliminary Peripheral Venipuncture Culture is incubating and being continuously monitored for growth. Final report to follow. 08/01/18 20:24 Blood Culture - Preliminary Peripheral Venipuncture Culture is incubating and being continuously monitored for growth. Final report to follow. Serology: Serology 08/04/18 08/04/18 08/01/18 Range/Units 15:37 15:19 18:00 Urine Color Yellow Dark Yellow (Yellow) Urine Clarity Cloudy A Clear (Clear) Urine pH 6.0 5.0 (5.0-8.0) pH Units Ur Specific [place] 1.019 1.025 (1.010-1.025) Urine Protein Negative Trace (Neg-Trace) mg/dL Urine Glucose (UA) Normal Normal (Normal) mg/dL Urine Ketones Negative Trace H (Negative) mg/dL Urine Blood Trace H Negative (Negative) Urine Nitrite Negative Negative (Negative) Urine Bilirubin Negative Small H (Negative) Urine Urobilinogen Normal Normal (Normal) mg/dL Ur Leukocyte Esterase Moderate H Trace H (Negative) Urine Microscopic RBC 0-3 0-3 (0-3) per hpf Urine Microscopic WBC 50-100 H 3-5 H (0-3) per hpf Ur Squamous Epith Cells Many H Many H (None-Few) per lpf Ur Transition Epith Cell Few (None-Few) per hpf Ur Renal Epithelial Cell Few (None-Few) per hpf Urine Bacteria None Seen Many H (None-Few) per hpf Hyaline Casts None Seen (None-Few) per lpf Urine Yeast Many H (None Seen) per hpf Ur Culture Indicated? NO. A NO. A (NO) Stool Occult Blood Negative (Negative) Consult Discharge Plan - Plan Referrals: NONE,PCP [Primary Care Provider] -
[2018-08-06] MEDS: cefTRIAXone 2,000 MG in 0.9 % Sodium Chloride Mini Bag 100 ML IVPB SCH (15:39)
[2018-08-06] MEDS: Temazepam 15 MG CAPSULE PO SCH (21:01)
[2018-08-06] MEDS: *HR* OxyCODONE Immed Rel 5 MG TABLET PO PRN (21:01)
--- NOTE | 2018-08-07 08:17 | Internal Med Progress Note ---
<Flor Ochoa N - Last Filed: 08/07/18 15:43> Hospitalist Progress Note - Encounter Date of Encounter: 08/07/18 Time of Encounter: 08:17 - Subjective Interval History: Ms. Denny was seen and evaluated at the bedside. She reports that she is feeling better today, and denies any acute complaints or concerns. Nursing staff reports no acute overnight events. - Exam Vitals: Temp Pulse Resp BP Pulse Ox 98.9 F 103 15 147/92 96 08/07/18 07:20 08/07/18 07:20 08/07/18 07:20 08/07/18 07:20 08/07/18 07:20 Exam: GENERAL: Elderly female in no acute distress. HEENT: Atraumatic and normocephalic. CARDIOVASCULAR: Regular rate and rhythm. S1 and S2 present. No murmurs, gallops, or rubs. RESPIRATORY: CTA bilaterally. Chest rises and falls symmetrically with respiration. No accessory muscle use noted. GASTROINTESTINAL: Active bowel sounds 4 quadrants. Abdomen soft, nontender, nondistended. EXTREMITIES: No clubbing, cyanosis, or edema present. NEUROLOGIC: Patient is cooperative with exam and answers questions appropriately. - Assessment and Plan (1) Decubitus ulcer of sacral region, stage 2 Current Visit: Yes Status: Acute Assessment and Plan: Large sacral decubitus ulcer, source of sepsis Patient was in significant amount of pain Initially treated with Zosyn and vancomycin; both were discontinued yesterday per ID recommendations Surgery was on board, recommended against debridement We will continue to treat with IV antibiotics; currently treating with rocephin 2g daily We will treat wound with wound care as needed per surgery recommendations Wound culture demonstrated MRSA, which was resulted this morning; vancomycin restarted by ID team (2) Anemia Current Visit: Yes Status: Chronic Assessment and Plan: Acute blood loss anemia, source unknown This does appear to be new in comparison to prior visits Baseline hemoglobin appears to be ~11 on prior visits Possibly secondary to bleeding from decubitus ulcer Stool occult negative; H&H appear stable We will continue to monitor closely (3) Hyperthyroidism Current Visit: Yes Status: Resolved Assessment and Plan: Hyperthyroidism as demonstrated on labs at time of admission Patient has been treated for hypothyroidism with levothyroxine On admission, TSH was 0.028 Repeat TSH is 0.020. 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, but is hypoplastic Synthroid restarted today at 100mcg. She will need a repeat TSH screening in 6-8 weeks as an outpatient (4) Wound of foot Current Visit: Yes Status: Acute Assessment and Plan: Patient has left-sided foot blister with skin discoloration This is relatively new and it was noticed first by the night team It does not appear to be open or draining in any way X-ray did not demonstrate any evidence for osteomyelitis Podiatry recommended Medix boots b/l for pressure protection Wound care instructions per podiatry note (5) Hypokalemia Current Visit: Yes Status: Acute Assessment and Plan: Patient again demonstrated hypokalemia on AM labs, with a serum potassium of 3.1. Repleted potassium PO and IV; magnesium repleted as well Will recheck with AM labs Will reassess magnesium tomorrow morning DVT Prophylaxis: SCDs - Time Spent with Patient Total time spent is greater than 50% in coordination of care (as documented) at patient's floor/unit and/or counseling patient: Internal Medicine: Result - Labs CBC & Chem 7: 08/07/18 10:44 08/07/18 09:41 - ABG Interpretation ABG results: PT/INR, D-dimer PT 14.4 Seconds (9.4-12.1) H 08/01/18 17:42 Consult Discharge Plan - Plan Referrals: NONE,PCP [Primary Care Provider] - <Yemi Edwards - Last Filed: 08/07/18 21:48> Hospitalist Progress Note - Encounter Date of Encounter: 08/07/18 - Exam Vitals: Temp Pulse Resp BP Pulse Ox 98.6 F 103 14 136/87 96 08/07/18 19:07 08/07/18 19:07 08/07/18 19:07 08/07/18 19:07 08/07/18 19:07 - Assessment and Plan (1) Decubitus ulcer of sacral region, stage 2 Current Visit: Yes Status: Acute (2) Anemia Current Visit: Yes Status: Chronic (3) Hyperthyroidism Current Visit: Yes Status: Resolved (4) Wound of foot Current Visit: Yes Status: Acute (5) Hypokalemia Current Visit: Yes Status: Acute - Time Spent with Patient Total time spent is greater than 50% in coordination of care (as documented) at patient's floor/unit and/or counseling patient: Internal Medicine: Result - Labs CBC & Chem 7: 08/07/18 10:44 08/07/18 09:41 Labs: Short CBC 08/07/18 Range/Units 10:44 WBC 16.4 H (4.3-11.1) K/mcL Hgb 11.8 D (11.5-15.4) g/dL Hct 36.5 (35.3-44.9) % Plt Count 268 (140-400) K/mcL Neutrophils # 11.8 H (1.6-8.9) K/mcL BMP 08/07/18 09:41 Sodium 136 Potassium 3.1 L Chloride 99 Carbon Dioxide 28 BUN 4 L Creatinine 0.49 L Glucose 87 Calcium 9.1 - ABG Interpretation ABG results: PT/INR, D-dimer PT 14.4 Seconds (9.4-12.1) H 08/01/18 17:42 - Attending Attestation I examined this patient and my medical decision-making was reviewed with the Resident Physician. I agree with the documented findings, disposition and treatment plan as described except to the extent set forth below. <Flor Ochoa N - Last Filed: 08/07/18 15:43> (2) Anemia Qualifiers: Anemia type: unspecified type Qualified Code(s): D64.9 - Anemia, unspecified <Yemi Edwards - Last Filed: 08/07/18 21:48> (2) Anemia Qualifiers: Anemia type: unspecified type Qualified Code(s): D64.9 - Anemia, unspecified
[2018-08-07] MEDS: Aspirin 81 MG TAB.CHEW PO SCH (08:50)
[2018-08-07] MEDS: Pregabalin 75 MG CAPSULE PO SCH ×2 (08:50→21:30)
[2018-08-07] MEDS: Leptospermum Honey Gel 44 ML TUBE TP SCH (08:50)
[2018-08-07] MEDS: cefTRIAXone 2,000 MG in 0.9 % Sodium Chloride Mini Bag 100 ML IVPB SCH (08:50)
[2018-08-07 10:10] LABS: BUN/Creatinine Ratio 8 (6-26); Blood Urea Nitrogen 4 mg/dL (8-23); Calcium 9.1 mg/dL (8.6-10.3); Carbon Dioxide 28 mEq/L (23-29); Chloride 99 mEq/L (98-107); Glucose 87 mg/dL (70-105); Magnesium 1.5 mg/dL (1.6-2.6); Osmolality,Calculated 278 (280-300); Potassium 3.1 mEq/L (3.5-5.1); Sodium 136 mEq/L (136-145); eGFR For Non-African Americans > 60 (> 60)
[2018-08-07 11:04] LABS: Basophils # 0.1 K/mcL (0.0-0.2); Basophils % 0.4 %; Eosinophils # 0.4 K/mcL (0.0-0.6); Eosinophils % 2.3 %; Hematocrit 36.5 % (35.3-44.9); Hemoglobin 11.8 g/dL (11.5-15.4); Immature Granulocytes % 1.5 % (0-4); Lymphocytes # 2.8 K/mcL (0.6-4.6); Mean Corpuscular HGB Conc 32.3 g/dL (31.6-35.5); Mean Corpuscular Hemoglobin 27.1 pg (28.0-33.3); Mean Corpuscular Volume 83.9 fL (83.0-100.0); Mean Platelet Volume 12.3 fL (9.4-12.4); Monocytes # 1.1 K/mcL (0.0-1.3); Monocytes % 6.6 %; Neutrophils # 11.8 K/mcL (1.6-8.9); Platelet Count 268 K/mcL (140-400); Red Blood Count 4.35 M/mcL (3.82-4.97); Red Cell Distribution Width 13.3 % (11.5-14.5); Segmented Neutrophils % 72.2 %
--- NOTE | 2018-08-07 11:45 | Infectious Disease Progress No ---
Date of Encounter: 08/07/18 Time of Encounter: 11:43 - Assessment and Plan (1) Sepsis Current Visit: Yes Status: Acute The patient had two SIRS criteria with hypotension on admission. Likely secondary to sacral wound infection. Improved. WBC back up a little today. Hypotension has resolved. Continues to have some intermittent tachycardia. Blood cultures drawn 08/01/18 x 1 set and 08/02/18 x 2 sets are negative. Recommendations: Wound care and aggressive offloading per surgery and wound care recommendations. Dressing changes to the left foot per Podiatry's recommendations. Re-start Vancomycin IV. Pharmacy to dose. Goal trough ~15. Continue Rocephin 2 grams IV Q24H. Duration of treatment depends on the clinical picture. Can likely switch to PO Augmentin and Bactrim when ready for discharge to complete a 14 day course. Monitor renal function and dose-adjust antibiotics. Qualifiers: Sepsis type: sepsis due to unspecified organism Qualified Code(s): A41.9 - Sepsis, unspecified organism (2) Cellulitis Current Visit: Yes Status: Acute Location: Sacral area. Likely secondary to decubitus ulcer. Causative organism: K. pneumonia and MRSA. ESR 41, CRP 27. Low index of suspicion for osteomyelitis given these results. Currently on Rocephin. Qualifiers: Site of cellulitis: buttock Qualified Code(s): L03.317 - Cellulitis of buttock (3) Decubital ulcer Current Visit: Yes Status: Acute Location: Sacrum. Etiology: pressure ulcer. Poor wound healing likely secondary to infection and poor nutritional status. General surgery consulted and following. CT of the abdomen and pelvis does not show fluid collection or osteomyelitis. ESR and CRP not impressive so will defer MRI for now, but if wound regresses/fails to improve, consider checking MRI. Qualifiers: Pressure injury location: sacral region Pressure injury stage: unspecified pressure injury stage Qualified Code(s): L89.159 - Pressure ulcer of sacral re gion, unspecified stage (4) Wound of foot Current Visit: Yes Status: Acute Location: Left foot. Etiology unclear. X-ray negative for OM. Wound culture negative. Podiatry consulted and following. (5) Hypokalemia Current Visit: Yes Status: Acute Management per the primary team. (6) Elevated troponin Current Visit: Yes Status: Acute (7) Weakness Current Visit: Yes Status: Chronic (8) Cervical myelopathy Current Visit: No Status: Chronic (9) CVA (cerebral vascular accident) Current Visit: No Status: Chronic Qualifiers: CVA mechanism: unspecified Qualified Code(s): I63.9 - Cerebral infarction, unspecified (10) Hypertension Current Visit: No Status: Chronic Qualifiers: Hypertension type: unspecified Qualified Code(s): I10 - Essential (primary) hypertension (11) Anemia Current Visit: Yes Status: Chronic Qualifiers: Anemia type: unspecified type Qualified Code(s): D64.9 - Anemia, unspecified - Subjective Interval history: Patient seen and examined. No acute events noted overnight. Patient states overall she feels well. Denies fevers, chills, or rigors. Denies chest pain, shortness of breath, or cough. Denies nausea, vomiting, diarrhea. Last BM was yesterday. Oleary catheter remains patent. Denies back or abdominal pain. Denies pain in her joints or extremities. Denies oral thrush or new skin lesions. Infect Dis PN-Objective Data - Labs CBC & Chem 7: 08/07/18 10:44 08/07/18 09:41 Labs: Laboratory Results - last 24 hr 08/07/18 08/07/18 08/07/18 09:41 09:41 10:44 WBC RBC Hgb Hct MCV MCH MCHC RDW Plt Count MPV Immature Gran % Seg Neutrophils % Lymphocytes % Monocytes % Eosinophils % Basophils % Neutrophils # Lymphocytes # Monocytes # Eosinophils # Basophils # ESR 41 H Sodium 136 Potassium 3.1 L Chloride 99 Carbon Dioxide 28 BUN 4 L Creatinine 0.49 L Est GFR ( Amer) > 60 Est GFR (Non-Af Amer) > 60 BUN/Creatinine Ratio 8 Glucose 87 Calculated Osmolality 278 L Calcium 9.1 Magnesium 1.5 L C-Reactive Protein Specimen Rejected Miscellaneous 08/07/18 08/07/18 10:44 10:44 WBC 16.4 H RBC 4.35 Hgb 11.8 D Hct 36.5 MCV 83.9 MCH 27.1 L MCHC 32.3 RDW 13.3 Plt Count 268 MPV 12.3 Immature Gran % 1.5 Seg Neutrophils % 72.2 Lymphocytes % 17.0 Monocytes % 6.6 Eosinophils % 2.3 Basophils % 0.4 Neutrophils # 11.8 H Lymphocytes # 2.8 Monocytes # 1.1 Eosinophils # 0.4 Basophils # 0.1 ESR Sodium Potassium Chloride Carbon Dioxide BUN Creatinine Est GFR ( Amer) Est GFR (Non-Af Amer) BUN/Creatinine Ratio Glucose Calculated Osmolality Calcium Magnesium C-Reactive Protein 27 H Specimen Rejected Cultures: Cultures 08/03/18 11:05 Wound Culture - Final Other-Specify in Comments Klebsiella pneu.ssp pneumoniae [place] albicans Methicillin Resistant S.aureus 08/04/18 15:00 Anaerobic Culture - Preliminary Left Foot At this time, no anaerobic growth is present. The culture will be finalized after 5 days of incubation. 08/02/18 02:25 Blood Culture - Final Peripheral Venipuncture No growth. Final report. 08/02/18 02:11 Blood Culture - Final Peripheral Venipuncture No growth. Final report. 08/01/18 20:24 Blood Culture - Final Peripheral Venipuncture No growth. Final report. 08/04/18 15:00 Wound Culture - Final Left Foot No growth. Serology 08/04/18 08/04/18 08/01/18 Range/Units 15:37 15:19 18:00 Urine Color Yellow Dark Yellow (Yellow) Urine Clarity Cloudy A Clear (Clear) Urine pH 6.0 5.0 (5.0-8.0) pH Units Ur Specific [place] 1.019 1.025 (1.010-1.025) Urine Protein Negative Trace (Neg-Trace) mg/dL Urine Glucose (UA) Normal Normal (Normal) mg/dL Urine Ketones Negative Trace H (Negative) mg/dL Urine Blood Trace H Negative (Negative) Urine Nitrite Negative Negative (Negative) Urine Bilirubin Negative Small H (Negative) Urine Urobilinogen Normal Normal (Normal) mg/dL Ur Leukocyte Esterase Moderate H Trace H (Negative) Urine Microscopic RBC 0-3 0-3 (0-3) per hpf Urine Microscopic WBC 50-100 H 3-5 H (0-3) per hpf Ur Squamous Epith Cells Many H Many H (None-Few) per lpf Ur Transition Epith Cell Few (None-Few) per hpf Ur Renal Epithelial Cell Few (None-Few) per hpf Urine Bacteria None Seen Many H (None-Few) per hpf Hyaline Casts None Seen (None-Few) per lpf Urine Yeast Many H (None Seen) per hpf Ur Culture Indicated? NO. A NO. A (NO) Stool Occult Blood Negative (Negative) Exam - Constitutional Vitals: Temp Pulse Resp BP Pulse Ox 98.1 F 97 20 135/82 96 08/07/18 11:24 08/07/18 11:24 08/07/18 11:24 08/07/18 11:24 08/07/18 11:24 General appearance: average body habitus, cooperative, no acute distress - Head Head exam: Present: atraumatic, normal inspection, normocephalic - Eye Eye exam: Present: EOMI, normal appearance, PERRL Pupils: Present: normal accommodation - ENT ENT exam: Present: mucous membranes moist - Neck Neck exam: Present: normal inspection - Respiratory Respiratory exam: Present: CTAB. Absent: rales, respiratory distress, rhonchi, wheezes - Cardiovascular Cardiovascular exam: Present: RRR, +S1, +S2 - GI/Abdominal GI/Abdominal exam: Present: normal bowel sounds, soft. Absent: distended, tenderness Additional comments: Oleary catheter noted to be draining clear yellow urine. - Extremities Exam Extremities exam: Absent: joint swelling, normal inspection (Left foot dressing C/D/I.), pedal edema, tenderness - Neurological Exam Neurological exam: Present: alert, oriented X3, no focal deficits - Psychiatric Psychiatric exam: Present: normal affect, normal mood - Skin Skin exam: Present: dry, intact, normal color, warm Consult Discharge Plan - Plan Referrals: NONE,PCP [Primary Care Provider] -
[2018-08-07] MEDS ORDERED: *HR* LORazepam 2 MG/ML VIAL IVP PRN (12:45)
[2018-08-07] MEDS ORDERED: Potassium Chloride 40 MEQ, Lidocaine 1% 2 ML in D5% in Water 500 ML IVPB ONE (13:09)
--- NOTE | 2018-08-07 20:17 | Podiatry Progress Note ---
Date of Encounter: 08/07/18 Time of Encounter: 12:25 - Assessment and Plan (1) Suspected deep tissue injury Current Visit: Yes Status: Acute Assessment: Bullae noted to left foot submetatarsal #5 Stable callus noted to submetatarsal #1 with peeling of skin Palpable pulses left foot CFT <3 seconds No edema, no erythema, no streaking, no foul odor noted xray negative for OM WBC increased today 16.4 Plan: Patient with bullae noted to submetatarsal #5, discussed with patient draining lesion, verbal consent obtained at bedside Punctured roof of lesion with sterile 18g blunt fill needle with minimal amount of serosanginous drainage Painted with betadine. Covered with adaptic, 4x4 dry gauze, and kerlex. Continue with local wound care orders daily Wear heel medix boots at all times when in bed. Subjective Interval history: Patient awake in bed. Patient reports feeling well. Denies any fevers, chills, nausea, vomiting, or diarrhea. Denies any chest pain, calf pain, or shortness of breath. Reports inability to extend left lower extremity. Objective - Vital Signs Vital Signs: Vital Signs Temp Pulse Resp BP Pulse Ox 08/07/18 19:07 98.6 F 103 14 136/87 96 08/07/18 17:40 97 08/07/18 15:48 97.6 F 110 18 144/79 97 08/07/18 11:24 98.1 F 97 20 135/82 96 08/07/18 07:45 97 08/07/18 07:20 98.9 F 103 15 147/92 96 08/07/18 03:36 98.1 F 98 16 135/88 95 Intake and Output 08/07/18 08/07/18 08/07/18 07:59 15:59 23:59 Intake Total 0 / 0 350 / 350 Output Total 1000 / 1000 150 / 150 Balance -1000 / -1000 200 / 200 Intake: IV Fluids 350 / 350 Vancocin 750 MG In 0.9 % Sodium 250 / 250 Chloride 250 ML @ 250 mls/hr IVPB Q12H JASON Rx#:[id number] Rocephin 2,000 MG In 0.9 % 100 / 100 Sodium Chloride (Mini-Bag +) 100 ML @ 200 mls/hr IVPB DAILY J[facility]ON Rx#:[id number] Oral 0 / 0 Output: Urine 0 / 0 0 / 0 Catheter 1000 / 1000 150 / 150 Other: # Urine Diapers 1 Weight 57.1 kg Patient Weight 08/07/18 23:59 Weight 57.1 kg - Lab Result Diagrams: 08/07/18 10:44 08/07/18 09:41 Labs: Abnormal lab results WBC 16.4 K/mcL (4.3-11.1) H 08/07/18 10:44 MCH 27.1 pg (28.0-33.3) L 08/07/18 10:44 Neutrophils # 11.8 K/mcL (1.6-8.9) H 08/07/18 10:44 Hypersegmented Neuts Present (Not Present) A 08/01/18 17:42 ESR 41 mm/hr (0-15) H 08/07/18 10:44 PT 14.4 Seconds (9.4-12.1) H 08/01/18 17:42 Potassium 3.1 mEq/L (3.5-5.1) L 08/07/18 09:41 BUN 4 mg/dL (8-23) L 08/07/18 09:41 Creatinine 0.49 mg/dL (0.60-1.20) L 08/07/18 09:41 Calculated Osmolality 278 (280-300) L 08/07/18 09:41 Phosphorus 1.8 mg/dL (2.7-4.5) L 08/05/18 05:56 Magnesium 1.5 mg/dL (1.6-2.6) L 08/07/18 09:41 Transferrin 145 mg/dL (203-362) L 08/05/18 12:39 Ferritin 227 ng/mL (10-120) H 08/05/18 12:39 AST 9 Units/L (13-39) L 08/04/18 05:50 Troponin I 0.04 ng/mL (< 0.04) H* 08/03/18 07:46 C-Reactive Protein 27 mg/L (Less than 10) H 08/07/18 10:44 Serum Total Protein 4.4 g/dL (6.4-8.9) L 08/04/18 05:50 Albumin 2.3 g/dL (3.5-5.7) L 08/04/18 05:50 Globulin 2.1 g/dL (2.4-3.5) L 08/04/18 05:50 TSH 0.020 mcIU/mL (0.340-5.600) L 08/03/18 07:46 Free T4 2.25 ng/dl (0.70-2.00) H 08/03/18 07:46 Free T3 1.57 pg/mL (2.50-3.90) L 08/03/18 07:46 Urine Clarity Cloudy (Clear) A 08/04/18 15:37 Urine Blood Trace (Negative) H 08/04/18 15:37 Ur Leukocyte Esterase Moderate (Negative) H 08/04/18 15:37 Urine Microscopic WBC 50-100 per hpf (0-3) H 08/04/18 15:37 Ur Squamous Epith Cells Many per lpf (None-Few) H 08/04/18 15:37 Urine Yeast Many per hpf (None Seen) H 08/04/18 15:37 Ur Culture Indicated? NO. (NO) A 08/04/18 15:37 Microbiology, Last 48 Hours 08/03/18 11:05 Wound Culture - Final Other-Specify in Comments Klebsiella pneu.ssp pneumoniae Ashley albicans Methicillin Resistant S.aureus 08/04/18 15:00 Anaerobic Culture - Preliminary Left Foot At this time, no anaerobic growth is present. The culture will be finalized after 5 days of incubation. 08/02/18 02:25 Blood Culture - Final Peripheral Venipuncture No growth. Final report. 08/02/18 02:11 Blood Culture - Final Peripheral Venipuncture No growth. Final report. 08/01/18 20:24 Blood Culture - Final Peripheral Venipuncture No growth. Final report. 08/04/18 15:00 Wound Culture - Final Left Foot No growth. Consult Discharge Plan - Plan Referrals: NONE,PCP [Primary Care Provider] -
[2018-08-07] MEDS: Temazepam 15 MG CAPSULE PO SCH (21:30)
[2018-08-08 05:47] LABS: Basophils # 0.1 K/mcL (0.0-0.2); Basophils % 0.7 %; Eosinophils # 0.3 K/mcL (0.0-0.6); Eosinophils % 2.8 %; Hematocrit 30.1 % (35.3-44.9); Immature Granulocytes % 1.4 % (0-4); Lymphocytes % 24.9 %; Mean Corpuscular HGB Conc 33.2 g/dL (31.6-35.5); Mean Corpuscular Hemoglobin 27.1 pg (28.0-33.3); Mean Corpuscular Volume 81.6 fL (83.0-100.0); Mean Platelet Volume 11.9 fL (9.4-12.4); Monocytes % 8.7 %; Neutrophils # 7.3 K/mcL (1.6-8.9); Platelet Count 258 K/mcL (140-400); Red Blood Count 3.69 M/mcL (3.82-4.97); Red Cell Distribution Width 13.4 % (11.5-14.5); Segmented Neutrophils % 61.5 %
[2018-08-08 06:07] LABS: BUN/Creatinine Ratio 10 (6-26); Blood Urea Nitrogen 5 mg/dL (8-23); Calcium 8.5 mg/dL (8.6-10.3); Carbon Dioxide 26 mEq/L (23-29); Chloride 102 mEq/L (98-107); Glucose 96 mg/dL (70-105); Magnesium 1.8 mg/dL (1.6-2.6); Osmolality,Calculated 275 (280-300); Phosphorous 2.3 mg/dL (2.7-4.5); Potassium 3.5 mEq/L (3.5-5.1); Sodium 134 mEq/L (136-145); eGFR For Non-African Americans > 60 (> 60)
[2018-08-08] MEDS: Aspirin 81 MG TAB.CHEW PO SCH (10:04)
[2018-08-08] MEDS: Pregabalin 75 MG CAPSULE PO SCH ×2 (10:04→20:40)
[2018-08-08] MEDS: Leptospermum Honey Gel 44 ML TUBE TP SCH (10:05)
[2018-08-08] MEDS: cefTRIAXone 2,000 MG in 0.9 % Sodium Chloride Mini Bag 100 ML IVPB SCH (10:05)
--- NOTE | 2018-08-08 10:19 | Infectious Disease Progress No ---
Date of Encounter: 08/08/18 Time of Encounter: 09:45 - Assessment and Plan (1) Sepsis Current Visit: Yes Status: Acute The patient had two SIRS criteria with hypotension on admission. Likely secondary to sacral wound infection. Improved. WBC improved. Hypotension has resolved. Continues to have some intermittent tachycardia. Blood cultures drawn 08/01/18 x 1 set and 08/02/18 x 2 sets are negative. Recommendations: Wound care and aggressive offloading per surgery and wound care recommendations. Dressing changes to the left foot per Podiatry's recommendations. Continue Vancomycin IV. Pharmacy to dose. Goal trough ~15. Continue Rocephin 2 grams IV Q24H. Duration of treatment depends on the clinical picture. Can likely switch to PO Augmentin and Bactrim when ready for discharge to complete a 14 day course. Treat through 08/14/18. Monitor renal function and dose-adjust antibiotics. Qualifiers: Sepsis type: sepsis due to unspecified organism Qualified Code(s): A41.9 - Sepsis, unspecified organism (2) Cellulitis Current Visit: Yes Status: Acute Location: Sacral area. Likely secondary to decubitus ulcer. Causative organism: K. pneumonia and MRSA. ESR 41, CRP 27. Low index of suspicion for osteomyelitis given these results. Currently on Rocephin. Qualifiers: Site of cellulitis: buttock Qualified Code(s): L03.317 - Cellulitis of buttock (3) Decubital ulcer Current Visit: Yes Status: Acute Location: Sacrum. Etiology: pressure ulcer. Poor wound healing likely secondary to infection and poor nutritional status. General surgery consulted and following. CT of the abdomen and pelvis does not show fluid collection or osteomyelitis. ESR and CRP not impressive so will defer MRI for now, but if wound regresses/fails to improve, consider checking MRI. Qualifiers: Pressure injury location: sacral region Pressure injury stage: unspecified pressure injury stage Qualified Code(s): L89.159 - Pressure ulcer of sacral region, unspecified stage (4) Wound of foot Current Visit: Yes Status: Acute Location: Left foot. Etiology unclear. X-ray negative for OM. Wound culture negative. Podiatry consulted and following. (5) Hypokalemia Current Visit: Yes Status: Acute Management per the primary team. (6) Elevated troponin Current Visit: Yes Status: Acute (7) Weakness Current Visit: Yes Status: Chronic (8) Cervical myelopathy Current Visit: No Status: Chronic (9) CVA (cerebral vascular accident) Current Visit: No Status: Chronic Qualifiers: CVA mechanism: unspecified Qualified Code(s): I63.9 - Cerebral infarction, unspecified (10) Hypertension Current Visit: No Status: Chronic Qualifiers: Hypertension type: unspecified Qualified Code(s): I10 - Essential (primary) hypertension (11) Anemia Current Visit: Yes Status: Chronic Qualifiers: Anemia type: unspecified type Qualified Code(s): D64.9 - Anemia, unspecified - Subjective Interval history: Patient seen and examined. No acute events noted overnight. Patient states overall she feels well. Denies fevers, chills, or rigors. Denies chest pain, shortness of breath, or cough. Denies nausea, vomiting, diarrhea. Last BM was yesterday. Oleary catheter remains patent. Denies back or abdominal pain. Denies pain in her joints or extremities. Denies oral thrush or new skin lesions. Infect Dis PN-Objective Data - Labs CBC & Chem 7: 08/08/18 05:18 08/08/18 05:18 Labs: Laboratory Results - last 24 hr 08/07/18 08/07/18 08/07/18 10:44 10:44 10:44 WBC 16.4 H RBC 4.35 Hgb 11.8 D Hct 36.5 MCV 83.9 MCH 27.1 L MCHC 32.3 RDW 13.3 Plt Count 268 MPV 12.3 Immature Gran % 1.5 Seg Neutrophils % 72.2 Lymphocytes % 17.0 Monocytes % 6.6 Eosinophils % 2.3 Basophils % 0.4 Neutrophils # 11.8 H Lymphocytes # 2.8 Monocytes # 1.1 Eosinophils # 0.4 Basophils # 0.1 ESR 41 H Sodium Potassium Chloride Carbon Dioxide BUN Creatinine Est GFR ( Amer) Est GFR (Non-Af Amer) BUN/Creatinine Ratio Glucose Calculated Osmolality Calcium Phosphorus Magnesium C-Reactive Protein 27 H 08/08/18 08/08/18 08/08/18 05:18 05:18 05:18 WBC 11.9 H RBC 3.69 L Hgb 10.0 L D Hct 30.1 L MCV 81.6 L MCH 27.1 L MCHC 33.2 RDW 13.4 Plt Count 258 MPV 11.9 Immature Gran % 1.4 Seg Neutrophils % 61.5 Lymphocytes % 24.9 Monocytes % 8.7 Eosinophils % 2.8 Basophils % 0.7 Neutrophils # 7.3 Lymphocytes # 3.0 Monocytes # 1.0 Eosinophils # 0.3 Basophils # 0.1 ESR Sodium 134 L Potassium 3.5 Chloride 102 Carbon Dioxide 26 BUN 5 L Creatinine 0.49 L Est GFR ( Amer) > 60 Est GFR (Non-Af Amer) > 60 BUN/Creatinine Ratio 10 Glucose 96 Calculated Osmolality 275 L Calcium 8.5 L Phosphorus 2.3 L Magnesium 1.8 C-Reactive Protein Cultures: Cultures 08/03/18 11:05 Wound Culture - Final Other-Specify in Comments Klebsiella pneu.ssp pneumoniae Ashley albicans Methicillin Resistant S.aureus 08/04/18 15:00 Anaerobic Culture - Preliminary Left Foot At this time, no anaerobic growth is present. The culture will be finalized after 5 days of incubation. 08/02/18 02:25 Blood Culture - Final Peripheral Venipuncture No growth. Final report. 08/02/18 02:11 Blood Culture - Final Peripheral Venipuncture No growth. Final report. 08/01/18 20:24 Blood Culture - Final Peripheral Venipuncture No growth. Final report. 08/04/18 15:00 Wound Culture - Final Left Foot No growth. Serology 08/04/18 08/04/18 08/01/18 Range/Units 15:37 15:19 18:00 Urine Color Yellow Dark Yellow (Yellow) Urine Clarity Cloudy A Clear (Clear) Urine pH 6.0 5.0 (5.0-8.0) pH Units Ur Specific [place] 1.019 1.025 (1.010-1.025) Urine Protein Negative Trace (Neg-Trace) mg/dL Urine Glucose (UA) Normal Normal (Normal) mg/dL Urine Ketones Negative Trace H (Negative) mg/dL Urine Blood Trace H Negative (Negative) Urine Nitrite Negative Negative (Negative) Urine Bilirubin Negative Small H (Negative) Urine Urobilinogen Normal Normal (Normal) mg/dL Ur Leukocyte Esterase Moderate H Trace H (Negative) Urine Microscopic RBC 0-3 0-3 (0-3) per hpf Urine Microscopic WBC 50-100 H 3-5 H (0-3) per hpf Ur Squamous Epith Cells Many H Many H (None-Few) per lpf Ur Transition Epith Cell Few (None-Few) per hpf Ur Renal Epithelial Cell Few (None-Few) per hpf Urine Bacteria None Seen Many H (None-Few) per hpf Hyaline Casts None Seen (None-Few) per lpf Urine Yeast Many H (None Seen) per hpf Ur Culture Indicated? NO. A NO. A (NO) Stool Occult Blood Negative (Negative) Exam - Constitutional Vitals: Temp Pulse Resp BP Pulse Ox 98.3 F 95 18 152/87 92 08/08/18 07:04 08/08/18 07:04 08/08/18 07:04 08/08/18 07:04 08/08/18 07:04 General appearance: average body habitus, cooperative, no acute distress - Head Head exam: Present: atraumatic, normal inspection, normocephalic - Eye Eye exam: Present: EOMI, normal appearance, PERRL Pupils: Present: normal accommodation - ENT ENT exam: Present: mucous membranes moist - Neck Neck exam: Present: normal inspection - Respiratory Respiratory exam: Present: CTAB. Absent: rales, respiratory distress, rhonchi, wheezes - Cardiovascular Cardiovascular exam: Present: RRR, +S1, +S2 - GI/Abdominal GI/Abdominal exam: Present: normal bowel sounds, soft. Absent: distended, tenderness Additional comments: Oleary catheter noted to be draining clear yellow urine. - Extremities Exam Extremities exam: Present: normal inspection. Absent: joint swelling, pedal edema, tenderness - Back Exam Additional comments: Sacral wound dressing is clean, dry, and intact. - Neurological Exam Neurological exam: Present: alert, oriented X3, no focal deficits Additional comments: Weakness noted to the bilateral lower extremities. Left foot dressing is clean, dry, and intact. - Psychiatric Psychiatric exam: Present: normal affect, normal mood - Skin Skin exam: Present: dry, intact, normal color, warm Consult Discharge Plan - Plan Referrals: NONE,PCP [Primary Care Provider] -
[2018-08-08 12:02] LABS: VBG Ionized Calcium 0.86 mmol/L (1.15-1.35)
--- NOTE | 2018-08-08 14:19 | Internal Med Progress Note ---
<Don,Lacey N - Last Filed: 08/08/18 14:18> Hospitalist Progress Note - Encounter Date of Encounter: 08/08/18 Time of Encounter: 14:19 - Subjective Interval History: Ms. Denny was seen and evaluated at the bedside. She reports that she is feeling better today, and denies any acute complaints or concerns. Nursing staff reports no acute overnight events. - Exam Vitals: Temp Pulse Resp BP Pulse Ox 98.8 F 109 17 129/74 97 08/08/18 13:56 08/08/18 13:56 08/08/18 13:56 08/08/18 13:56 08/08/18 13:56 Exam: GENERAL: Elderly female in no acute distress. HEENT: Atraumatic and normocephalic. CARDIOVASCULAR: Regular rate and rhythm. S1 and S2 present. No murmurs, gallops, or rubs. RESPIRATORY: CTA bilaterally. Chest rises and falls symmetrically with respiration. No accessory muscle use noted. GASTROINTESTINAL: Active bowel sounds 4 quadrants. Abdomen soft, nontender, nondistended. EXTREMITIES: No clubbing, cyanosis, or edema present. NEUROLOGIC: Patient is cooperative with exam and answers questions appropriately. - Assessment and Plan (1) Decubitus ulcer of sacral region, stage 2 Current Visit: Yes Status: Acute Assessment and Plan: Large sacral decubitus ulcer, source of sepsis Patient was in significant amount of pain Initially treated with Zosyn and vancomycin; both were discontinued yesterday per ID recommendations Surgery was on board, recommended against debridement We will continue to treat with IV antibiotics; currently treating with rocephin 2g daily We will treat wound with wound care as needed per surgery recommendations Wound culture demonstrated MRSA, which was resulted this morning; vancomycin restarted by ID team (2) Anemia Current Visit: Yes Status: Chronic Assessment and Plan: Acute blood loss anemia, source unknown This does appear to be new in comparison to prior visits Baseline hemoglobin appears to be ~11 on prior visits Possibly secondary to bleeding from decubitus ulcer Stool occult negative; H&H appear stable We will continue to monitor closely (3) Hyperthyroidism Current Visit: Yes Status: Resolved Assessment and Plan: Hyperthyroidism as demonstrated on labs at time of admission Patient has been treated for hypothyroidism with levothyroxine On admission, TSH was 0.028 Repeat TSH is 0.020. 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, but is hypoplastic Synthroid restarted today at 100mcg. She will need a repeat TSH screening in 6-8 weeks as an outpatient (4) Wound of foot Current Visit: Yes Status: Acute Assessment and Plan: Patient has left-sided foot blister with skin discoloration This is relatively new and it was noticed first by the night team It does not appear to be open or draining in any way X-ray did not demonstrate any evidence for osteomyelitis Podiatry recommended Medix boots b/l for pressure protection Wound care instructions per podiatry note (5) Hypokalemia Current Visit: Yes Status: Acute Assessment and Plan: Patient again demonstrated hypokalemia on AM labs, with a serum potassium of 3.1. Repleted potassium PO and IV; magnesium repleted as well Will recheck with AM labs Will reassess magnesium tomorrow morning DVT Prophylaxis: SCDs - Time Spent with Patient Total time spent is greater than 50% in coordination of care (as documented) at patient's floor/unit and/or counseling patient: Internal Medicine: Result - Labs CBC & Chem 7: 08/08/18 05:18 08/08/18 05:18 Labs: Short CBC 08/08/18 Range/Units 05:18 WBC 11.9 H (4.3-11.1) K/mcL Hgb 10.0 L D (11.5-15.4) g/dL Hct 30.1 L (35.3-44.9) % Plt Count 258 (140-400) K/mcL Neutrophils # 7.3 (1.6-8.9) K/mcL BMP 08/08/18 05:18 Sodium 134 L Potassium 3.5 Chloride 102 Carbon Dioxide 26 BUN 5 L Creatinine 0.49 L Glucose 96 Calcium 8.5 L - ABG Interpretation ABG results: PT/INR, D-dimer PT 14.4 Seconds (9.4-12.1) H 08/01/18 17:42 Consult Discharge Plan - Plan Referrals: NONE,PCP [Primary Care Provider] - <Yemi Edwards - Last Filed: 08/08/18 15:26> Hospitalist Progress Note - Encounter Date of Encounter: 08/08/18 - Exam Vitals: Temp Pulse Resp BP Pulse Ox 98.8 F 109 17 129/74 97 02/01/19 13:56 08/08/18 13:56 08/08/18 13:56 08/08/18 13:56 08/08/18 13:56 - Assessment and Plan (1) Decubitus ulcer of sacral region, stage 2 Current Visit: Yes Status: Acute (2) Anemia Current Visit: Yes Status: Chronic (3) Hyperthyroidism Current Visit: Yes Status: Resolved (4) Wound of foot Current Visit: Yes Status: Acute (5) Hypokalemia Current Visit: Yes Status: Acute - Time Spent with Patient Total time spent is greater than 50% in coordination of care (as documented) at patient's floor/unit and/or counseling patient: Internal Medicine: Result - Labs CBC & Chem 7: 08/08/18 05:18 08/08/18 05:18 Labs: Short CBC 08/08/18 Range/Units 05:18 WBC 11.9 H (4.3-11.1) K/mcL Hgb 10.0 L D (11.5-15.4) g/dL Hct 30.1 L (35.3-44.9) % Plt Count 258 (140-400) K/mcL Neutrophils # 7.3 (1.6-8.9) K/mcL BMP 08/08/18 05:18 Sodium 134 L Potassium 3.5 Chloride 102 Carbon Dioxide 26 BUN 5 L Creatinine 0.49 L Glucose 96 Calcium 8.5 L - ABG Interpretation ABG results: PT/INR, D-dimer PT 14.4 Seconds (9.4-12.1) H 08/01/18 17:42 - Attending Attestation I examined this patient and my medical decision-making was reviewed with the Resident Physician. I agree with the documented findings, disposition and treatment plan as described except to the extent set forth below. <Flor Ochoa N - Last Filed: 08/08/18 14:18> (2) Anemia Qualifiers: Anemia type: unspecified type Qualified Code(s): D64.9 - Anemia, unspecified <Yemi Edwards - Last Filed: 08/08/18 15:26> (2) Anemia Qualifiers: Anemia type: unspecified type Qualified Code(s): D64.9 - Anemia, unspecified
[2018-08-08] MEDS: Folic Acid 1 MG TABLET PO SCH (17:32)
[2018-08-08] MEDS: Multivit/Ca/Min/Fe/FA 1 TAB TABLET PO SCH (17:33)
[2018-08-08] MEDS: Vitamin B Complex/Vit C/Vit E 1 EACH TABLET PO SCH (17:33)
[2018-08-08] MEDS: Thiamine (B-1) 100 MG TABLET PO SCH (17:33)
[2018-08-08] MEDS: Temazepam 15 MG CAPSULE PO SCH (20:40)
--- NOTE | 2018-08-09 08:22 | Internal Med Progress Note ---
Hospitalist Progress Note - Encounter Date of Encounter: 08/09/18 - Exam Vitals: Temp Pulse Resp BP Pulse Ox 98.8 F 103 16 143/80 96 08/09/18 07:00 08/09/18 07:00 08/09/18 07:00 08/09/18 07:00 08/09/18 07:00 - Assessment and Plan (1) Decubitus ulcer of sacral region, stage 2 Current Visit: Yes Status: Acute (2) Anemia Current Visit: Yes Status: Chronic (3) Hyperthyroidism Current Visit: Yes Status: Resolved (4) Wound of foot Current Visit: Yes Status: Acute (5) Hypokalemia Current Visit: Yes Status: Acute - Time Spent with Patient Total time spent is greater than 50% in coordination of care (as documented) at patient's floor/unit and/or counseling patient: Internal Medicine: Result - Labs CBC & Chem 7: 08/08/18 05:18 08/08/18 05:18 - ABG Interpretation ABG results: PT/INR, D-dimer PT 14.4 Seconds (9.4-12.1) H 08/01/18 17:42 Consult Discharge Plan - Plan Referrals: NONE,PCP [Primary Care Provider] - (2) Anemia Qualifiers: Anemia type: unspecified type Qualified Code(s): D64.9 - Anemia, unspecified
[2018-08-09 08:41] LABS: Basophils # 0.1 K/mcL (0.0-0.2); Basophils % 0.7 %; Eosinophils # 0.4 K/mcL (0.0-0.6); Hematocrit 34.7 % (35.3-44.9); Hemoglobin 11.4 g/dL (11.5-15.4); Immature Granulocytes % 1.7 % (0-4); Lymphocytes # 2.9 K/mcL (0.6-4.6); Lymphocytes % 23.5 %; Mean Corpuscular HGB Conc 32.9 g/dL (31.6-35.5); Mean Corpuscular Hemoglobin 27.1 pg (28.0-33.3); Mean Corpuscular Volume 82.6 fL (83.0-100.0); Mean Platelet Volume 11.4 fL (9.4-12.4); Monocytes # 0.9 K/mcL (0.0-1.3); Monocytes % 7.2 %; Platelet Count 313 K/mcL (140-400); Red Cell Distribution Width 13.6 % (11.5-14.5); Segmented Neutrophils % 63.9 %
[2018-08-09] MEDS: cefTRIAXone 2,000 MG in 0.9 % Sodium Chloride Mini Bag 100 ML IVPB SCH (08:45)
[2018-08-09] MEDS: Thiamine (B-1) 100 MG TABLET PO SCH (08:56)
[2018-08-09] MEDS: Aspirin 81 MG TAB.CHEW PO SCH (08:56)
[2018-08-09] MEDS: Vitamin B Complex/Vit C/Vit E 1 EACH TABLET PO SCH (08:56)
[2018-08-09] MEDS: Multivit/Ca/Min/Fe/FA 1 TAB TABLET PO SCH (08:56)
[2018-08-09] MEDS: Pregabalin 75 MG CAPSULE PO SCH (08:56)
[2018-08-09] MEDS: Folic Acid 1 MG TABLET PO SCH (08:56)
[2018-08-09 08:57] LABS: BUN/Creatinine Ratio 7 (6-26); Blood Urea Nitrogen 4 mg/dL (8-23); Calcium 8.5 mg/dL (8.6-10.3); Carbon Dioxide 28 mEq/L (23-29); Chloride 102 mEq/L (98-107); Glucose 90 mg/dL (70-105); Magnesium 1.8 mg/dL (1.6-2.6); Osmolality,Calculated 280 (280-300); Phosphorous 3.7 mg/dL (2.7-4.5); Sodium 137 mEq/L (136-145); eGFR For Non-African Americans > 60 (> 60)
[2018-08-09] MEDS: Leptospermum Honey Gel 44 ML TUBE TP SCH (10:13)
--- NOTE | 2018-08-09 14:43 | Discharge Summary ---
- NOTES TO OUTPATIENT PROVIDER Notes to Outpatient Provider: Follow-up with electolyte abnormalities. Recheck magnesium, phosphorus, BMP in 1-2 days. Recommend supplementaiton, nutrition consult and Ensure daily. Wound care for chronic foot wound and infected sacral wound. Orders not resulted at time of discharge: Pending orders 08/02/18 00:18 Culture,Wound [RM] Routine Date of Encounter: 08/09/18 Time of Encounter: 14:40 - Discharge Diagnosis (1) Sepsis Priority: Primary Status: Acute Qualifiers: Sepsis type: sepsis due to unspecified organism Qualified Code(s): A41.9 - Sepsis, unspecified organism (2) Decubitus ulcer of sacral region, stage 2 Priority: Secondary Status: Acute (3) Anemia Priority: Secondary Status: Chronic Qualifiers: Anemia type: unspecified type Qualified Code(s): D64.9 - Anemia, unspecified (4) Hyperthyroidism Priority: Secondary Status: Resolved (5) Wound of foot Priority: Secondary Status: Acute (6) Hypokalemia Priority: Secondary Status: Acute Hospital course: Ms. Denny is a 82 year old female with pmh significant for CHF, HTN, prior CVA with residual L side weakness, hypothyroidism and osteoporosis. She has had sacral/gluteal pain for the past few weeks that has been progressively worsening. She describes it as aching and sometimes stinging pain. She barely moves around in bed and says she only gets out of bed once every couple weeks. Within the ED family was concerned of chest pain and ED documentation reports no complaints of chest pain in the ED and she denies any chest pain now or recently. She does endorse L sided weakness and L UE/LE pain but not more than baseline post CVA, denies the sacral pain radiating elsewhere, subjective fever/chills, diplopia, blurry vision, dizziness/lightheadedness, chest pain, dyspnea, abdominal pain, N/V, constipation, diarrhea, dysuria, hematuria. Within the ED she was afebrile, tachycardic, WBC 39.5, troponin 0.04, with sacral decubitus ulcer and cellulitis, started on empiric antibiotics. She had hypophosphatemia and hypomagnesemia which needed constant replacement. She had nutrition supplementation with nutritional shakes. She was admitted for sepsis secondary to sacral decubitus ulcer and cellulitis. Podiatry was consulted for blister wound of left foot. It was drained by Podiatry and sent to cultures. Wound cultures returned positive for Klebsiella pneumonia and MRSA. ID was consulted and patient was started on Rocephin and vancomycin was continued. Sepsis resolved. Per recommendations, will be transitioned to Augmentin/Bactrim on discharge. - Time Spent with Patient Total time spent providing and/or coordinating discharge services: - Discharge Medications Prescriptions: Hydrocodone/Acetaminophen [[place] 10-325 Tablet] 1 tab PO Q6H PRN 3 Days #12 tablet PRN Reason: Pain Pregabalin [Lyrica] 150 mg PO BID 3 Days #6 capsule Temazepam [Restoril] 30 mg PO HS 3 Days #3 capsule Home Medications: Docusate [Colace] 100 mg PO DAILY PRN 11/02/16 [History] Baclofen [Lioresal] 10 mg PO BID 12/01/16 [History] Celecoxib [Celebrex] 100 mg PO DAILY 12/01/16 [History] Cholecalciferol (D-3) [Vitamin D] 5,000 unit PO BID 12/01/16 [History] DULoxetine [Cymbalta] 30 mg PO DAILY 12/01/16 [History] Esomeprazole Magnesium [Nexium] 40 mg PO DAILY 12/01/16 [History] Levothyroxine [Synthroid] 150 mcg PO DAILY 12/01/16 [History] PARoxetine HCl [Paroxetine HCl] 10 mg PO QAM 12/01/16 [History] Buspirone HCl [Buspar] 5 mg PO BID 07/04/18 [History] Lisinopril 2.5 mg PO DAILY 07/04/18 [History] Spironolactone 25 mg PO QAM 07/04/18 [History] Amlodipine Besylate 5 mg PO DAILY 08/03/18 [History] Acetaminophen [Tylenol] 650 mg PO Q6HR PRN tablet 08/09/18 [Rx] Amoxicillin/Clavulanate [Augmentin] 875 mg PO BIDWM #10 tablet 08/09/18 [Rx] Aspirin 81 mg PO DAILY tab.chew 08/09/18 [Rx] Folic Acid 1 mg PO DAILY tablet 08/09/18 [Rx] Hydrocodone/Acetaminophen [[place] 10-325 Tablet] 1 tab PO Q6H PRN 3 Days #12 tablet 08/09/18 [Rx] Leptospermum Honey [Medihoney] 1 appl TP DAILY tube 08/09/18 [Rx] Multivit/Ca/Min/Fe/FA [Thera M Plus] 1 tab PO DAILY tablet 08/09/18 [Rx] Pregabalin [Lyrica] 150 mg PO BID 3 Days #6 capsule 08/09/18 [Rx] Sulfamethoxazole/Trimeth DS [Bactrim DS] 1 each PO BID #10 tablet 08/09/18 [Rx] Temazepam [Restoril] 30 mg PO HS 3 Days #3 capsule 08/09/18 [Rx] Thiamine (B-1) [Vitamin B-1] 100 mg PO DAILY tablet 08/09/18 [Rx] Vitamin B Complex/Vit C/Vit E [Stresstab] 1 each PO DAILY tablet 08/09/18 [Rx] Allergies/Adverse Reactions: Allergy/AdvReac Type Severity Reaction Status Date / Time Iodinated Contrast- Oral and Allergy See Verified 11/02/16 12:33 IV Dye Comments [Iodinated Contrast Media - Oral and] Date of admission: 08/02/18 05:35 Primary care physician: PCP NONE Consults: 08/01/18 20:01 Consult to Surgery [CONS] Stat Consulting Provider: [facility] Reason for Consult: decubitus ulcer with sepsis Time Notified: 20:02 Call Completed: Yes 08/01/18 22:53 Consult to Pastoral Services [CONS] Routine Comment: patient request 08/01/18 23:59 Consult to Wound Care [CONS] Routine Reason for Consult: Sacral decubitus ulcer, L foot Time Notified: 00:00 Call Completed: No 08/02/18 05:24 Consult to Podiatry [CONS] Routine Consulting Provider: [facility] Reason for Consult: Foot ulceration Call Completed: No 08/04/18 12:35 Consult to Physical Therapy [CONS] Routine Comment: Evaluate, develop and implement POC Reason for Consult: deconditioning; interested in ECF placement Does patient have active BEDREST order?: No Is patient medically & hemodynamically stable?: Yes Patient assessed for mobility or mobilized this visit?: No 08/05/18 15:24 Consult to Invasive Line Access Team [CONS] Routine Reason for Consult: Need IV access Line Type: EPIV PICC line indications: Limited vascular access Time Notified: 15:24 08/06/18 14:52 Consult to Infectious Diseases [CONS] Routine Consulting Provider: Infectious Disease [facility] Reason for Consult: Opinion on need for IV antibiotics Call Completed: Yes 08/08/18 11:16 Consult to Nutrition [CONS] Routine Comment: Consulting Provider: NUTRITION Reason for Dietary Consult: Diet Education Other Other:: Refeeding syndrome? Severe protein-calorie malnutrition - Constitutional Vitals: Temp Pulse Resp BP Pulse Ox 98.2 F 95 16 131/80 96 08/09/18 11:09 08/09/18 11:09 08/09/18 11:09 08/09/18 11:09 08/09/18 11:09 General appearance: Present: cooperative, disheveled, no acute distress, answers questions appropriately Exam: GENERAL: Elderly female in no acute distress. HEENT: Atraumatic and normocephalic. CARDIOVASCULAR: Regular rate and rhythm. S1 and S2 present. No murmurs, gallops, or rubs. RESPIRATORY: CTA bilaterally. Chest rises and falls symmetrically with respiration. No accessory muscle use noted. GASTROINTESTINAL: Active bowel sounds 4 quadrants. Abdomen soft, nontender, nondistended. EXTREMITIES: No clubbing, cyanosis, or edema present. NEUROLOGIC: Patient is cooperative with exam and answers questions appropriately. - Patient Status Disposition: Transfer SNF Condition: Fair Functional capacity at discharge: wheelchair bound Overall status at discharge: patient is progressing back to baseline - Discharge Instructions Follow Up With: NONE,PCP [Primary Care Provider] - - Diet and Activity Activity: as per physical therapy Diet: advance to your usual diet
[2018-08-09 15:27] VITALS: BP 138/77
--- NOTE | 2018-08-09 17:07 | Physician Discharge Referral ---
ExtendedCare Referral Info Institutional Level of Care: Skilled - Diagnosis (1) Sepsis Priority: Primary Status: Acute (2) Decubitus ulcer of sacral region, stage 2 Priority: Secondary Status: Acute (3) Anemia Priority: Secondary Status: Chronic (4) Hyperthyroidism Priority: Secondary Status: Resolved (5) Wound of foot Priority: Secondary Status: Acute (6) Hypokalemia Priority: Secondary Status: Acute - Transfer Medications Prescriptions: Amoxicillin/Clavulanate [Augmentin] 875 mg PO BIDWM #10 tablet Hydrocodone/Acetaminophen [[place] 10-325 Tablet] 1 tab PO Q6H PRN 3 Days #12 tablet PRN Reason: Pain Pregabalin [Lyrica] 150 mg PO BID 3 Days #6 capsule Sulfamethoxazole/Trimeth DS [Bactrim DS] 1 each PO BID #10 tablet Temazepam [Restoril] 30 mg PO HS 3 Days #3 capsule Home Medications: Docusate [Colace] 100 mg PO DAILY PRN 11/02/16 [History] Baclofen [Lioresal] 10 mg PO BID 12/01/16 [History] Celecoxib [Celebrex] 100 mg PO DAILY 12/01/16 [History] Cholecalciferol (D-3) [Vitamin D] 5,000 unit PO BID 12/01/16 [History] DULoxetine [Cymbalta] 30 mg PO DAILY 12/01/16 [History] Esomeprazole Magnesium [Nexium] 40 mg PO DAILY 12/01/16 [History] Levothyroxine [Synthroid] 150 mcg PO DAILY 12/01/16 [History] PARoxetine HCl [Paroxetine HCl] 10 mg PO QAM 12/01/16 [History] Buspirone HCl [Buspar] 5 mg PO BID 07/04/18 [History] Lisinopril 2.5 mg PO DAILY 07/04/18 [History] Spironolactone 25 mg PO QAM 07/04/18 [History] Amlodipine Besylate 5 mg PO DAILY 08/03/18 [History] Acetaminophen [Tylenol] 650 mg PO Q6HR PRN tablet 08/09/18 [Rx] Amoxicillin/Clavulanate [Augmentin] 875 mg PO BIDWM #10 tablet 08/09/18 [Rx] Aspirin 81 mg PO DAILY tab.chew 08/09/18 [Rx] Folic Acid 1 mg PO DAILY tablet 08/09/18 [Rx] Hydrocodone/Acetaminophen [[place] 10-325 Tablet] 1 tab PO Q6H PRN 3 Days #12 tablet 08/09/18 [Rx] Leptospermum Honey [Medihoney] 1 appl TP DAILY tube 08/09/18 [Rx] Multivit/Ca/Min/Fe/FA [Thera M Plus] 1 tab PO DAILY tablet 08/09/18 [Rx] Pregabalin [Lyrica] 150 mg PO BID 3 Days #6 capsule 08/09/18 [Rx] Sulfamethoxazole/Trimeth DS [Bactrim DS] 1 each PO BID #10 tablet 08/09/18 [Rx] Temazepam [Restoril] 30 mg PO HS 3 Days #3 capsule 08/09/18 [Rx] Thiamine (B-1) [Vitamin B-1] 100 mg PO DAILY tablet 08/09/18 [Rx] Vitamin B Complex/Vit C/Vit E [Stresstab] 1 each PO DAILY tablet 08/09/18 [Rx] Allergies/Adverse Reactions: Allergy/AdvReac Type Severity Reaction Status Date / Time Iodinated Contrast- Oral and Allergy See Verified 11/02/16 12:33 IV Dye Comments [Iodinated Contrast Media - Oral and] - Respiratory Orders Smoking Cessation: Smoking cessation has been advised. For more information, call the [place] Tobacco Quit Line at 0-434-[phone]. CERTIFICATION: I certify that the transfer of the above named patient to an Extended Care Facility is necessary for the continuing treatment of the diagnosis listed. The above information is true and accurate reflection of patient's current condition. Confidential - Redisclosure prohibited without a patient's written consent.
[2018-08-09] MEDS ORDERED: Aminoglycoside Consult 1 EACH MC ONE (18:52)
== END 2018-08-09 18:53 | DRG 872 ==
LOC: 3ANU 17:07 → EMEROOARM 17:07 → 3ANU 22:05 → SUATTDRO 08-02 05:35
PROVIDERS: ADMIT Family Medicine; ATTEND Student in an Organized Health Care Education/Training Program

== ENCOUNTER 2018-10-20 14:42 | Inpatient (IN) ==
[2018-10-20] MEDS ORDERED: 0.9 % Sodium Chloride 1,000 ML IVC ONE ×3 (14:49→19:47)
[2018-10-20] MEDS ORDERED: Piperacillin/Tazobactam 3.375 GM in Water for inj. (sterile) 20 ML 20 ML IVP ONE (14:52)
--- NOTE | 2018-10-20 14:59 | Emergency Department Note ---
Disposition Clinical Impression: Sepsis Qualifiers: Sepsis type: sepsis due to unspecified organism Qualified Code(s): A41.9 - Sepsis, unspecified organism Disposition: Admitted As Inpatient Condition: Good General Adult HPI - General Stated complaint: possible sepsis Time Seen by Provider: 10/20/18 14:47 - Related Data Home Medications Medication Instructions Recorded Confirmed Docusate [Colace] 100 mg PO DAILY PRN 11/02/16 09/07/18 Baclofen [Lioresal] 10 mg PO BID 12/01/16 09/07/18 Celecoxib [Celebrex] 100 mg PO DAILY 12/01/16 09/07/18 DULoxetine [Cymbalta] 30 mg PO DAILY 12/01/16 09/07/18 Levothyroxine [Synthroid] 150 mcg PO DAILY 12/01/16 09/07/18 PARoxetine HCl [Paroxetine HCl] 10 mg PO QAM 12/01/16 09/07/18 Buspirone HCl [Buspar] 5 mg PO BID 07/04/18 09/07/18 Lisinopril 2.5 mg PO DAILY 07/04/18 09/07/18 Spironolactone 25 mg PO QAM 07/04/18 09/07/18 Amlodipine Besylate 5 mg PO DAILY 08/03/18 09/07/18 Hydrocodone/Acetaminophen [[place] 1 each PO Q6H PRN 09/07/18 09/07/18 10-325 Tablet] Nystatin Cream [Mycostatin Cream] 1 appl TP BID 09/07/18 09/07/18 Omeprazole [PriLOSEC] 20 mg PO DAILY 09/07/18 09/07/18 Pregabalin [Lyrica] 150 mg PO BID 09/07/18 09/07/18 Temazepam [Restoril] 30 mg PO HS PRN 09/07/18 09/07/18 Previous Rx's Medication Instructions Recorded Acetaminophen [Tylenol] 650 mg PO Q6HR PRN tablet 08/09/18 Aspirin 81 mg PO DAILY tab.chew 08/09/18 Folic Acid 1 mg PO DAILY tablet 08/09/18 Thiamine (B-1) [Vitamin B-1] 100 mg PO DAILY tablet 08/09/18 Vitamin B Complex/Vit C/Vit E 1 each PO DAILY tablet 08/09/18 [Stresstab] Vancomycin/0.9 % Sod Chloride 1 gm IV DAILY #6 plast..bag 09/17/18 [Vanco 1 Gram/250 ml-0.9% NaCl] Allergies Allergy/AdvReac Type Severity Reaction Status Date / Time Iodinated Contrast- Oral and Allergy See Verified 11/02/16 12:33 IV Dye Comments [Iodinated Contrast Media - Oral and] Past Medical History - Past Medical History Medical history: Reports: CHF, COPD, CVA, GERD, hypertension, osteoporosis, thyroid disease Surgical history: Reports: hysterectomy, other Psychiatric history: Reports: no psych history - Social History Smoking Status: Current every day smoker Smokeless Tobacco Status: No Alcohol use: Reports: none Drug use: Reports: none Attestation Statement - Attestation Attestation: I examined this patient and my medical decision-making was reviewed with the Resident Physician. I agree with the documented findings, disposition and treatment plan as described except to the extent set forth below. 83 year old female [facility] and was [facility] last month for MRSA infection in her sacral decubitus ulcer. Patinet has purluent discharge and there is a chronic indwelling urinary catheter with minimal urine production. Patient is lkely sepsis alert and we melvi proceed with sepsis protocol and start vanc and zosyn therapy as this is what she was senstiive to in the last admission. We will admit to medicine
--- NOTE | 2018-10-20 15:01 | Emergency Department Note ---
Disposition Clinical Impression: SYDNIE (acute kidney injury) Sepsis Qualifiers: Sepsis type: sepsis due to unspecified organism Qualified Code(s): A41.9 - Sepsis, unspecified organism Decubital ulcer Qualifiers: Pressure injury location: unspecified location Pressure injury stage: unspecified pressure injury stage Qualified Code(s): L89.90 - Pressure ulcer of unspecified site, unspecified stage Pneumonia Qualifiers: Pneumonia type: due to unspecified organism Laterality: unspecified laterality Lung location: unspecified part of lung Qualified Code(s): J18.9 - Pneumonia, unspecified organism Altered mental status Qualifiers: Altered mental status type: unspecified Qualified Code(s): R41.82 - Altered mental status, unspecified Disposition: Admitted As Inpatient Condition: Good Time of Disposition: 16:23 General Adult HPI - General Stated complaint: possible sepsis Time Seen by Provider: 10/20/18 14:47 Source: patient, EMS Mode of arrival: EMS Limitations: no limitations Nursing Notes Reviewed: Yes Vital Signs Reviewed: Yes - History of Present Illness HPI Narrative: 83-year-old female persists for evaluation for concerns of sepsis. Patient has a recent auscultation for sepsis secondary to decubitus ulcer. History provided via EMS. Patient was a resident at [facility]. EMS report that the nursing facility says the patient has becoming altered over the past 2 weeks. Patient does have prior admissions for decubitus sepsis. Patient is diabetic provide much of a history. Patient is a DNR CCA. Unknown whether the patient's been having any productive cough. Unknown whether the patient has been having any c hest pain. Pain Scale: 0 - Related Data Home Medications Medication Instructions Recorded Confirmed Docusate [Colace] 100 mg PO DAILY PRN 11/02/16 09/07/18 Baclofen [Lioresal] 10 mg PO BID 12/01/16 09/07/18 Celecoxib [Celebrex] 100 mg PO DAILY 12/01/16 09/07/18 DULoxetine [Cymbalta] 30 mg PO DAILY 12/01/16 09/07/18 Levothyroxine [Synthroid] 150 mcg PO DAILY 12/01/16 09/07/18 PARoxetine HCl [Paroxetine HCl] 10 mg PO QAM 12/01/16 09/07/18 Buspirone HCl [Buspar] 5 mg PO BID 07/04/18 09/07/18 Lisinopril 2.5 mg PO DAILY 07/04/18 09/07/18 Spironolactone 25 mg PO QAM 07/04/18 09/07/18 Amlodipine Besylate 5 mg PO DAILY 08/03/18 09/07/18 Hydrocodone/Acetaminophen [[place] 1 each PO Q6H PRN 09/07/18 09/07/18 10-325 Tablet] Nystatin Cream [Mycostatin Cream] 1 appl TP BID 09/07/18 09/07/18 Omeprazole [PriLOSEC] 20 mg PO DAILY 09/07/18 09/07/18 Pregabalin [Lyrica] 150 mg PO BID 09/07/18 09/07/18 Temazepam [Restoril] 30 mg PO HS PRN 09/07/18 09/07/18 Previous Rx's Medication Instructions Recorded Acetaminophen [Tylenol] 650 mg PO Q6HR PRN tablet 08/09/18 Aspirin 81 mg PO DAILY tab.chew 08/09/18 Folic Acid 1 mg PO DAILY tablet 08/09/18 Thiamine (B-1) [Vitamin B-1] 100 mg PO DAILY tablet 08/09/18 Vitamin B Complex/Vit C/Vit E 1 each PO DAILY tablet 08/09/18 [Stresstab] Vancomycin/0.9 % Sod Chloride 1 gm IV DAILY #6 plast..bag 09/17/18 [Vanco 1 Gram/250 ml-0.9% NaCl] Allergies Allergy/AdvReac Type Severity Reaction Status Date / Time Iodinated Contrast- Oral and Allergy See Verified 11/02/16 12:33 IV Dye Comments [Iodinated Contrast Media - Oral and] Limitations: ROS unobtainable due to patients medical condition Past Medical History - Past Medical History Source: old records reviewed Medical history: Reports: CHF, COPD, CVA, GERD, hypertension, osteoporosis, thyroid disease Surgical history: Reports: hysterectomy, other Psychiatric history: Reports: no psych history - Social History Smoking Status: Current every day smoker Smokeless Tobacco Status: No Alcohol use: Reports: none Drug use: Reports: none Physical Exam - General Limitations: no limitations General appearance: alert, in no apparent distress, cachectic - Head Head exam: atraumatic, normal inspection - Eye Eye exam: Present: normal appearance, EOMI - ENT ENT exam: normal exam, mucous membranes dry - Neck Neck exam: Present: normal inspection - Chest Chest inspection: Present: normal inspection, symmetric chest wall rise - Respiratory Respiratory exam: Present: other (Diffusely diminished). Absent: respiratory distress, wheezes - Cardiovascular Cardiovascular exam: Present: regular rate, normal rhythm. Absent: systolic murmur - Abdominal Exam Abdominal exam: Present: soft, Non-Tender - Extremities Exam Extremities exam: Present: normal inspection, other (Lower extremity ). Absent: pedal edema - Back Exam Back exam: Present: other (Stage III-iv Decub with surrounding erythema) - Neurological Exam Neurological exam: Present: alert, CN II-XII intact. Absent: oriented X3 - Skin Skin exam: Present: warm, dry, intact, normal color Course Course Narrative: Patient presents with concerns of sepsis. Sepsis protocol initiated. At this time the patient does not warrant immediate airway intervention. Patient get fluid resuscitated. Patient does have asymmetric blood pressures however felt this is less likely related to any type of dissection. Patient is not complaining of any pain. Patient source likely decubitus ulcer however patient also has an indwelling Ole[place] and will be exchanged. Patient's also been hosp italized will check a chest x-ray as well as a CT of the head and abdomen pelvis. Vital Signs Temperature 98.2 F 10/20/18 14:46 Pulse Rate 82 10/20/18 14:46 Respiratory Rate 18 10/20/18 14:46 Blood Pressure 151/136 10/20/18 14:46 O2 Sat by Pulse Oximetry 94 10/20/18 14:46 Temperature 98.2 F 10/20/18 14:46 Pulse Rate 82 10/20/18 14:46 Respiratory Rate 18 10/20/18 14:46 Blood Pressure 151/136 10/20/18 14:46 O2 Sat by Pulse Oximetry 96 10/20/18 16:00 Oxygen Delivery Oxygen Delivery Nasal Cannula Medical Decision Making - [facility] Narrative Medical decision making narrative: Patient presented for concerns for sepsis. Patient does appear altered however the patient control her airway. No need for emergent airway intervention. Patient had concerning vitals for possible sepsis. Source likely diffuse ulcer symmetric prior admissions. Patient started the most appropriate antibiotics based on prior ID recommendations. Patient did get CT scan of the pelvis which showed no fluid collection or bone involvement. CT normal. Chest x-ray does s how some concerns for retrocardiac opacity. Patient was given fluid resuscitation in the setting of mild AK likely secondary to prerenal. Patient will be admitted to the hospital service for continued evaluation and monitoring. Patient does have asymmetric blood pressures which are known and no concerns for aortic dissection. - Lab Data Lab results reviewed: Yes I reviewed the patient's lab results. Result diagrams: 10/20/18 14:54 10/20/18 14:54 Lab Results 10/20/18 10/20/18 10/20/18 Range/Units 14:54 14:54 14:54 WBC 26.9 H (4.3-11.1) K/mcL RBC 3.46 L (3.82-4.97) M/mcL Hgb 9.6 L (11.5-15.4) g/dL Hct 29.3 L (35.3-44.9) % MCV 84.7 (83.0-100.0) fL MCH 27.7 L (28.0-33.3) pg MCHC 32.8 (31.6-35.5) g/dL RDW 15.7 H (11.5-14.5) % Plt Count 343 (140-400) K/mcL MPV 12.1 (9.4-12.4) fL Immature Gran % 0.8 (0-4) % Seg Neutrophils % 76.7 % Lymphocytes % 13.0 % Monocytes % 8.6 % Eosinophils % 0.6 % Basophils % 0.3 % Neutrophils # 20.6 H (1.6-8.9) K/mcL Lymphocytes # 3.5 (0.6-4.6) K/mcL Monocytes # 2.3 H (0.0-1.3) K/mcL Eosinophils # 0.2 (0.0-0.6) K/mcL Basophils # 0.1 (0.0-0.2) K/mcL Toxic Granulation Present A (Not Present) Platelet Estimate Increased H (Normal) Large Platelets Present A (Not Present) Immature Plt Fraction 8.3 H (1.1-6.1) % PT 13.2 H (9.4-12.1) Seconds INR 1.2 APTT 32.9 (26.0-36.0) Seconds Sodium 134 L (136-145) mEq/L Potassium 4.5 (3.5-5.1) mEq/L Chloride 101 (98-107) mEq/L Carbon Dioxide 25 (23-29) mEq/L BUN 33 H (8-23) mg/dL Creatinine 1.42 H (0.60-1.20) mg/dL Est GFR ( Amer) 43 L (> 60) Est GFR (Non-Af Amer) 35 L (> 60) BUN/Creatinine Ratio 23 (6-26) Glucose 94 (70-105) mg/dL Calculated Osmolality 285 (280-300) Lactic Acid (0.5-2.2) mmol/L Calcium 11.3 H (8.6-10.3) mg/dL Phosphorus 5.3 H (2.7-4.5) mg/dL Magnesium 1.8 (1.6-2.6) mg/dL Total Bilirubin 0.3 (0.3-1.0) mg/dL Direct Bilirubin 0.1 (0.0-0.2) mg/dL Indirect Bilirubin 0.2 (0.0-1.2) mg/dL AST 12 L (13-39) Units/L ALT 9 (7-52) Units/L Alkaline Phosphatase 98 (34-104) Units/L Troponin I < 0.03 (< 0.04) ng/mL Serum Total Protein 6.5 (6.4-8.9) g/dL Albumin 3.4 L (3.5-5.7) g/dL Globulin 3.1 (2.4-3.5) g/dL Albumin/Globulin Ratio 1.1 (1.1-2.2) 10/20/18 Range/Units 14:54 WBC (4.3-11.1) K/mcL RBC (3.82-4.97) M/mcL Hgb (11.5-15.4) g/dL Hct (35.3-44.9) % MCV (83.0-100.0) fL MCH (28.0-33.3) pg MCHC (31.6-35.5) g/dL RDW (11.5-14.5) % Plt Count (140-400) K/mcL MPV (9.4-12.4) fL Immature Gran % (0-4) % Seg Neutrophils % % Lymphocytes % % Monocytes % % Eosinophils % % Basophils % % Neutrophils # (1.6-8.9) K/mcL Lymphocytes # (0.6-4.6) K/mcL Monocytes # (0.0-1.3) K/mcL Eosinophils # (0.0-0.6) K/mcL Basophils # (0.0-0.2) K/mcL Toxic Granulation (Not Present) Platelet Estimate (Normal) Large Platelets (Not Present) Immature Plt Fraction (1.1-6.1) % PT (9.4-12.1) Seconds INR APTT (26.0-36.0) Seconds Sodium (136-145) mEq/L Potassium (3.5-5.1) mEq/L Chloride (98-107) mEq/L Carbon Dioxide (23-29) mEq/L BUN (8-23) mg/dL Creatinine (0.60-1.20) mg/dL Est GFR ( Amer) (> 60) Est GFR (Non-Af Amer) (> 60) BUN/Creatinine Ratio (6-26) Glucose (70-105) mg/dL Calculated Osmolality (280-300) Lactic Acid 1.5 (0.5-2.2) mmol/L Calcium (8.6-10.3) mg/dL Phosphorus (2.7-4.5) mg/dL Magnesium (1.6-2.6) mg/dL Total Bilirubin (0.3-1.0) mg/dL Direct Bilirubin (0.0-0.2) mg/dL Indirect Bilirubin (0.0-1.2) mg/dL AST (13-39) Units/L ALT (7-52) Units/L Alkaline Phosphatase (34-104) Units/L Troponin I (< 0.04) ng/mL Serum Total Protein (6.4-8.9) g/dL Albumin (3.5-5.7) g/dL Globulin (2.4-3.5) g/dL Albumin/Globulin Ratio (1.1-2.2) - Radiology Data Radiology results reviewed: Yes I reviewed the patient's radiology results. Chest X-Ray 10/20/18 14:50 IMPRESSION: 1. Interval appearance since 09/12/2018 of a dense retrocardiac opacity with small pleural effusion. Findings are concerning for infection in the appropriate clinical setting. D/ / 10/20/2018 15:36:16 Wendy Maldonado MD / darcie Interpreting Provider: Wendy Maldonado MD Abdomen/Pelvis CT 10/20/18 15:00 IMPRESSION: No acute abnormality of the abdomen or pelvis. Specifically, no evidence osteomyelitis or abscess. D/ / Yash Santos MD / Yash Santos MD Interpreting Provider: Yash Santos MD Head CT 10/20/18 15:00 IMPRESSION: No acute intracranial abnormality. Cerebral atrophy. Chronic small vessel ischemic changes. D/ / 10/20/2018 16:11:22 Berna Benites MD / dana Interpreting Provider: Berna Benites MD - EKG Data EKG #1 EKG attestation: Yes I reviewed and interpreted this EKG. EKG shows normal: sinus rhythm Rate: normal Rhythm: NSR [place]/QRS: normal Q waves: III T wave inversions noted in: v1 Interpretation: no acute changes, nonspecific ST-T wave changes S.B.AJannet - Sonido Situation: Demographics Background: Presenting Complaint Assessment: Vital Signs, Course and respsone to treatment, Patient/Family Expectation Recommendation: Barrier(s) to disposition, Recommendation based on pending studies, treatments, or consults SJovaniBMario Report Given to: Dr. Laura Head Repor Time: 16:31
[2018-10-20 15:11] LABS: Basophils % 0.3 %; Hemoglobin 9.6 g/dL (11.5-15.4); Mean Corpuscular Hemoglobin 27.7 pg (28.0-33.3); Mean Platelet Volume 12.1 fL (9.4-12.4); Platelet Count 343 K/mcL (140-400)
[2018-10-20 15:18] LABS: INR 1.2; Prothrombin Time 13.2 Seconds (9.4-12.1)
[2018-10-20 15:21] LABS: Activated Partial Thrombo Time 32.9 Seconds (26.0-36.0); Basophils # 0.1 K/mcL (0.0-0.2); Eosinophils # 0.2 K/mcL (0.0-0.6); Eosinophils % 0.6 %; Hematocrit 29.3 % (35.3-44.9); Immature Granulocytes % 0.8 % (0-4); Immature Platelets 8.3 % (1.1-6.1); Lymphocytes # 3.5 K/mcL (0.6-4.6); Mean Corpuscular HGB Conc 32.8 g/dL (31.6-35.5); Mean Corpuscular Volume 84.7 fL (83.0-100.0); Monocytes # 2.3 K/mcL (0.0-1.3); Monocytes % 8.6 %; Neutrophils # 20.6 K/mcL (1.6-8.9); Red Blood Count 3.46 M/mcL (3.82-4.97); Red Cell Distribution Width 15.7 % (11.5-14.5); Segmented Neutrophils % 76.7 %
[2018-10-20] MEDS ORDERED: Piperacillin/Tazobactam 3.375 GM in 0.9 % Sodium Chloride Mini Bag 100 ML IVP ONE (15:21)
[2018-10-20 15:28] LABS: Alanine Aminotransferase 9 Units/L (7-52); Albumin 3.4 g/dL (3.5-5.7); Albumin/Globulin Ratio 1.1 (1.1-2.2); Alkaline Phosphatase 98 Units/L (34-104); Aspartate Amino Transferase 12 Units/L (13-39); BUN/Creatinine Ratio 23 (6-26); Bilirubin,Direct 0.1 mg/dL (0.0-0.2); Bilirubin,Indirect 0.2 mg/dL (0.0-1.2); Bilirubin,Total 0.3 mg/dL (0.3-1.0); Blood Urea Nitrogen 33 mg/dL (8-23); Calcium 11.3 mg/dL (8.6-10.3); Carbon Dioxide 25 mEq/L (23-29); Chloride 101 mEq/L (98-107); Globulin 3.1 g/dL (2.4-3.5); Glucose 94 mg/dL (70-105); Magnesium 1.8 mg/dL (1.6-2.6); Osmolality,Calculated 285 (280-300); Phosphorous 5.3 mg/dL (2.7-4.5); Potassium 4.5 mEq/L (3.5-5.1); Sodium 134 mEq/L (136-145); Total Protein 6.5 g/dL (6.4-8.9); Troponin I < 0.03 ng/mL (< 0.04); eGFR For Non-African Americans 35 (> 60)
[2018-10-20 16:09] LABS: Large Platelets Present (Not Present); Platelet Estimate Increased (Normal); Toxic Granulation Present (Not Present)
[2018-10-20] MEDS ORDERED: Naloxone 0.4 MG/ML INJ IVP PRN (18:50)
[2018-10-20] MEDS ORDERED: 0.9 % Sodium Chloride 1,000 ML ONE (19:54)
--- NOTE | 2018-10-20 21:07 | Internal Med History&Physical ---
Date of Encounter: 10/20/18 Time of Encounter: 19:00 Internal Medicine - H&P: HPI Chief complaint: Weakness/confusion Admitted From: Long-term Nursing Facility Plans for Post Hospital Care: Transfer Senior [facility] Facility History of present illness: The patient is an 83-year-old woman sent to us from her group home with progressing weakness and some confusion; developing in the last few days. She has been treated recently for infected decubitus wound of the sacral area. There is no recent history of fever or chills. We do not know, if she had any coughing or wheezing recently. Her chest x-ray shows suspected pneumonia. She has WBC count of 26.9 thousand. PAST MEDICAL HX: The patient has been treated for CHF, hypertension, COPD, hypothyroidism and osteoporosis. She has developed her chronic low back pain has had chronic decubitus wound of the sacral area. She has had history of CVA with left-sided weakness. PAST FAMILY HX: The patient is extremely poor historian. She could not remember any problems for her close family members. PAST SOCIAL HX: She is a current every day smoker. There is no history of alcohol or illicit drugs use. REVIEW OF SYSTEMS: All 14 organ systems were reviewed by me with the patient. Positive and pertinent negative findings are listed above. The rest of organ systems is negative. PHYSICAL EXAM: Her vitals checked in the emergency room showed temperature of 98.20 with pulse of 82, respiration of 18 and blood pressure 151/36. Pulse ox was 94% on FiO2 of 28%. 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 Having a depth of about 1 inch and showing tunneling of half an inch-1 inch. The bottom is at sacral bone. There are also 4 rounded decubitus wounds located on lateral side of her left foot and on medial side of her left great toe. They are stage II/III. They have diameter of about half an inch each. The rest of her skin is normal in appearance. Eyes: Sclera is white. There is no discharge from eyes. ENMT: Oral/pharyngeal mucosa is normal in appearance. There is no discharge from nose or ears. Respiratory: Normal breath sounds with no crackles and wheezes bilaterally. CV: Heart is regular with no gallop or murmur. GI: Abdomen is flat and soft with no palpable mass or visceromegaly. : There is no tenderness in patient's flanks bilaterally. Neuro exam: He has good strength in upper and lower extremities. He has normal eye movements. Psychiatric: He has normal affect. His thought process is appropriate to the situation. ADDITIONAL DATA: Chest x-ray from today shows interval appearance (since 09/12/18) of a dense retrocardiac opacity with small pleural effusion. Findings are concerning for infection in the appropriate clinical setting. CT of abdomen and pelvis without IV/by mouth contrast from today does not show any acute abnormality of the abdomen or pelvis. Specifically, there is no evidence for osteomyelitis or abscess. CT of head/brain without contrast from today does not show any acute intracranial abnormality. It shows cerebral atrophy with chronic small vessel ischemic changes. Chest x-ray shows normal sinus rhythm with rate of 79/min. Hemoglobin is 9.6 with WBC of 26.9 thousand (mostly neutrophils) and platelet count of 343,000. Pro time INR is 1.2. Electrolytes are normal. Creatinine is 1.42; 0.64 on 09/16/18 (with GFR over 60). Lactic acid is 1.5. Phosphorus is 5.3 with a magnesium of 1.8. Liver function tests are normal. A/P: She may have healthcare associated pneumonia. She has high WBC with normal lactic acid. She is mildly hypoxic. 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 To continue IV vancomycin and IV Zosyn. She received 3 L of IV fluids in the emergency department. I will consult wound care nurse specialist. Low back pain. It is secondary to the decubitus wound and severe DJD of spine. I will continue her Lyrica with Lioresal, Celebrex and Cymbalta. Past Med Surg Social Fam HX - Past Medical History Medical history: CHF, COPD, CVA, GERD, hypertension, osteoporosis, thyroid disease Additional medical history: Lupus, Psychiatric history: no psych history - Past Surgical History Surgical History: hysterectomy, other Additional surgical history: per medical record - Social History Smoking Status: Current every day smoker Smokeless Tobacco Status: No Alcohol use: none Drug use: none - Family History Mother Hx Family Cardiac Disorders: Yes (LA) Brother Hx Family Cancer: Yes (prostate) Internal Medicine - H&P: Meds Docusate [Colace] 100 mg PO DAILY PRN 11/02/16 [History] Baclofen [Lioresal] 10 mg PO BID 12/01/16 [History] Celecoxib [Celebrex] 100 mg PO DAILY 12/01/16 [History] DULoxetine [Cymbalta] 30 mg PO DAILY 12/01/16 [History] Levothyroxine [Synthroid] 150 mcg PO DAILY 12/01/16 [History] PARoxetine HCl [Paroxetine HCl] 10 mg PO QAM 12/01/16 [History] Buspirone HCl [Buspar] 5 mg PO BID 07/04/18 [History] Lisinopril 2.5 mg PO DAILY 07/04/18 [History] Spironolactone 25 mg PO QAM 07/04/18 [History] Amlodipine Besylate 5 mg PO DAILY 08/03/18 [History] Acetaminophen [Tylenol] 650 mg PO Q6HR PRN tablet 08/09/18 [Rx] Aspirin 81 mg PO DAILY tab.chew 08/09/18 [Rx] Folic Acid 1 mg PO DAILY tablet 08/09/18 [Rx] Thiamine (B-1) [Vitamin B-1] 100 mg PO DAILY tablet 08/09/18 [Rx] Vitamin B Complex/Vit C/Vit E [Stresstab] 1 each PO DAILY tablet 08/09/18 [Rx] Hydrocodone/Acetaminophen [[place] 10-325 Tablet] 1 each PO Q6H PRN 09/07/18 [History] Nystatin Cream [Mycostatin Cream] 1 appl TP BID 09/07/18 [History] Omeprazole [PriLOSEC] 20 mg PO DAILY 09/07/18 [History] Pregabalin [Lyrica] 150 mg PO BID 09/07/18 [History] Temazepam [Restoril] 30 mg PO HS PRN 09/07/18 [History] Vancomycin/0.9 % Sod Chloride [Vanco 1 Gram/250 ml-0.9% NaCl] 1 gm IV DAILY #6 plast..bag 09/17/18 [Rx] Allergy/AdvReac Type Severity Reaction Status Date / Time Iodinated Contrast- Oral and Allergy See Verified 11/02/16 12:33 IV Dye Comments [Iodinated Contrast Media - Oral and] - Constitutional Vitals: Temp Pulse Resp BP Pulse Ox 97.8 F 65 15 72/40 99 10/20/18 18:53 10/20/18 18:53 10/20/18 18:53 10/20/18 18:53 10/20/18 18:53 General appearance: Present: A&O X 1, no acute distress Exam: xx Internal Med - H&P Results - Labs CBC & Chem 7: 10/20/18 14:54 10/20/18 14:54 Labs: Short CBC 10/20/18 Range/Units 14:54 WBC 26.9 H (4.3-11.1) K/mcL Hgb 9.6 L (11.5-15.4) g/dL Hct 29.3 L (35.3-44.9) % Plt Count 343 (140-400) K/mcL Neutrophils # 20.6 H (1.6-8.9) K/mcL BMP 10/20/18 14:54 Sodium 134 L Potassium 4.5 Chloride 101 Carbon Dioxide 25 BUN 33 H Creatinine 1.42 H Glucose 94 Calcium 11.3 H Cardiac Enzymes 10/20/18 Range/Units 14:54 Troponin I < 0.03 (< 0.04) ng/mL Liver Function 10/20/18 Range/Units 14:54 Total Bilirubin 0.3 (0.3-1.0) mg/dL Direct Bilirubin 0.1 (0.0-0.2) mg/dL AST 12 L (13-39) Units/L ALT 9 (7-52) Units/L Alkaline Phosphatase 98 (34-104) Units/L Albumin 3.4 L (3.5-5.7) g/dL - Impressions ITS Impressions Chest X-Ray 10/20/18 14:50 IMPRESSION: 1. Interval appearance since 09/12/2018 of a dense retrocardiac opacity with small pleural effusion. Findings are concerning for infection in the appropriate clinical setting. D/ / 10/20/2018 15:36:16 Wendy Maldonado MD / darcie Interpreting Provider: Wendy Maldonado MD Abdomen/Pelvis CT 10/20/18 15:00 IMPRESSION: No acute abnormality of the abdomen or pelvis. Specifically, no evidence osteomyelitis or abscess. D/ / Yash Santos MD / Yash Santos MD Interpreting Provider: Yash Santos MD Head CT 10/20/18 15:00 IMPRESSION: No acute intracranial abnormality. Cerebral atrophy. Chronic small vessel ischemic changes. D/ / 10/20/2018 16:11:22 Berna Benites MD / dana Interpreting Provider: Berna Benites MD - Assessment and Plan (1) HCAP (healthcare-associated pneumonia) Current Visit: Yes Status: Acute (2) Decubitus ulcer of sacral region, stage 4 Current Visit: Yes Status: Acute (3) Low back pain Current Visit: Yes Status: Chronic Qualifiers: Chronicity: chronic Back pain laterality: midline Sciatica presence: without sciatica Qualified Code(s): M54.5 - Low back pain; G89.29 - Other chronic pain - Time Spent With Patient Total time spent is greater than 50% in coordination of care (as documented) at patient's floor/unit and/or counseling patient: 25 - 35 minutes
[2018-10-20] MEDS ORDERED: *HR* OxyCODONE Immed Rel 5 MG TABLET PO PRN (21:33)
[2018-10-20] MEDS ORDERED: Ipratropium/Albuterol Neb 3 ML IH PRN (21:47)
[2018-10-21] MEDS ORDERED: Piperacillin/Tazobactam 3.375 GM in 0.9 % Sodium Chloride Mini Bag 100 ML IVPB SCH (06:00)
[2018-10-21] MEDS: *HR* Heparin 5,000 UNIT/ML VIAL SQ SCH ×2 (06:11→17:27)
[2018-10-21 06:36] LABS: Bilirubin,Urine Negative (Negative); Blood,Urine Negative (Negative); Clarity,Urine Cloudy (Clear); Color,Urine Yellow (Yellow); Glucose,Urine (UA) Normal (Normal); Ketones,Urine Trace mg/dL (Negative); Leukocyte Esterase,Urine Moderate (Negative); Nitrite,Urine Negative (Negative); PH,Urine 5.5 pH Units (5.0-8.0); Protein,Urine 100 mg/dL (Neg-Trace); Specific Gravity,Urine 1.019 (1.010-1.025); Urobilinogen,Urine Normal (Normal)
[2018-10-21 06:37] LABS: Bacteria,Urine None Seen per hpf (None-Few); Hyaline Casts,Urine Few per lpf (None-Few); Squamous Epithelial Cell,Urine Moderate per lpf (None-Few); WBC,Urine TNTC per hpf (0-3)
[2018-10-21 07:09] LABS: Basophils # 0.1 K/mcL (0.0-0.2); Basophils % 0.4 %; Eosinophils # 0.1 K/mcL (0.0-0.6); Eosinophils % 0.6 %; Hematocrit 24.7 % (35.3-44.9); Immature Granulocytes % 0.9 % (0-4); Lymphocytes # 2.1 K/mcL (0.6-4.6); Mean Corpuscular HGB Conc 31.2 g/dL (31.6-35.5); Mean Corpuscular Hemoglobin 27.3 pg (28.0-33.3); Mean Corpuscular Volume 87.6 fL (83.0-100.0); Mean Platelet Volume 11.9 fL (9.4-12.4); Monocytes # 1.3 K/mcL (0.0-1.3); Monocytes % 6.9 %; Neutrophils # 15.5 K/mcL (1.6-8.9); Platelet Count 309 K/mcL (140-400); Red Blood Count 2.82 M/mcL (3.82-4.97); Red Cell Distribution Width 15.3 % (11.5-14.5); Segmented Neutrophils % 80.2 %
[2018-10-21 07:18] LABS: Hemoglobin 7.7 g/dL (11.5-15.4)
[2018-10-21 07:29] LABS: BUN/Creatinine Ratio 31 (6-26); Blood Urea Nitrogen 28 mg/dL (8-23); Calcium 9.8 mg/dL (8.6-10.3); Carbon Dioxide 18 mEq/L (23-29); Chloride 109 mEq/L (98-107); Glucose 79 mg/dL (70-105); Osmolality,Calculated 288 (280-300); Potassium 3.9 mEq/L (3.5-5.1); Sodium 137 mEq/L (136-145); eGFR For Non-African Americans 60 (> 60)
[2018-10-21] MEDS: Pregabalin 75 MG CAPSULE PO SCH ×2 (08:14→20:38)
[2018-10-21] MEDS: Celecoxib 100 MG CAPSULE PO SCH (08:14)
[2018-10-21] MEDS: Piperacillin/Tazobactam 3.375 GM in 0.9 % Sodium Chloride Mini Bag 100 ML IVPB SCH (14:44)
[2018-10-22] MEDS: Piperacillin/Tazobactam 3.375 GM in 0.9 % Sodium Chloride Mini Bag 100 ML IVPB SCH ×4 (00:17→23:49)
--- NOTE | 2018-10-22 05:40 | Internal Med Progress Note ---
Hospitalist Progress Note - Encounter Date of Encounter: 10/21/18 Time of Encounter: 19:00 - Subjective Interval History: SUBJECTIVE: The patient is nonverbal. She follows simple commands. She needs to be fed. She does have some choking with foods and fluids. No distress is seen. She is on 4 L/min nasal cannula oxygen. OBJECTIVE: Skin: Free of rash and discoloration, except of wounds mentioned by me in history and physical. ENMT: Oral/pharyngeal mucosa is normal in appearance. Eyes: Sclera is white. There is no discharge from eyes. Respiratory: Normal breath sounds; no crackles or wheezes. CV: Heart is regular; no gallop or murmur. GI: Abdomen is soft and not tender. There is no palpable mass or visceromegaly. Neuro: There is no focal deficits. ADDITIONAL DATA: Hemoglobin is 7.7; 9.6 yesterday. WBC is 19.3 thousand; 26.9 thousand yesterday. She has normal platelet count. Her electrolytes are normal except of bicarb. It is 18; 25 8 admission. UA shows changes of her urinary tract infection. ASSESSMENT AND PLAN: Pneumonia/acute hypoxic respiratory failure. To continue IV vancomycin/IV Zosyn together with supplemental oxygen and when necessary nebulizer treatment with DuoNeb. Possible urinary tract infection. IV Zosyn should suffice. Stage IV decubitus wound of the sacral area. See notes from the wound care nurse specialist. The wound does not need to be debrided. CT is not favoring the diagnosis of osteomyelitis. Cultures were taken. Acute kidney injury. Resolved with IV fluids. Anemia. Chronic in nature. Her baseline hemoglobin is around 9.0. We will repeat her CBC and BMP in the morning. Possible dysphagia. I will consult speech therapy. DISPOSITION: She came from a long term. They keep her bed. - Exam Vitals: Temp Pulse Resp BP Pulse Ox 99.0 F 72 14 99/52 93 10/22/18 03:42 10/22/18 03:42 10/22/18 03:42 10/22/18 03:42 10/22/18 03:42 Exam: xx - Assessment and Plan (1) HCAP (healthcare-associated pneumonia) Current Visit: Yes Status: Acute (2) Acute respiratory failure with hypoxia Current Visit: Yes Status: Acute (3) Urinary tract infection Current Visit: Yes Status: Suspected (4) Decubitus ulcer of sacral region, stage 4 Current Visit: Yes Status: Acute (5) Low back pain Current Visit: Yes Status: Chronic (6) Dysphagia Current Visit: Yes Status: Acute (7) Hypothyroid Current Visit: Yes Status: Chronic - Time Spent with Patient Total time spent is greater than 50% in coordination of care (as documented) at patient's floor/unit and/or counseling patient: 25 - 35 minutes Plan of Care Discussed with: patient Internal Medicine: Result - Labs CBC & Chem 7: 10/21/18 06:47 10/21/18 06:47 Labs: Short CBC 10/21/18 Range/Units 06:47 WBC 19.3 H (4.3-11.1) K/mcL Hgb 7.7 L D (11.5-15.4) g/dL Hct 24.7 L (35.3-44.9) % Plt Count 309 (140-400) K/mcL Neutrophils # 15.5 H (1.6-8.9) K/mcL BMP 10/21/18 06:47 Sodium 137 Potassium 3.9 Chloride 109 H Carbon Dioxide 18 L BUN 28 H Creatinine 0.90 Glucose 79 Calcium 9.8 Urine 10/21/18 Range/Units 06:00 Urine Color Yellow (Yellow) Urine Clarity Cloudy A (Clear) Urine pH 5.5 (5.0-8.0) pH Units Ur Specific [place] 1.019 (1.010-1.025) Urine Protein 100 H (Neg-Trace) mg/dL Urine Glucose (UA) Normal (Normal) mg/dL - ABG Interpretation ABG results: PT/INR, D-dimer PT 13.2 Seconds (9.4-12.1) H 10/20/18 14:54 - Impressions Impressions Chest X-Ray 10/20/18 14:50 IMPRESSION: 1. Interval appearance since 09/12/2018 of a dense retrocardiac opacity with small pleural effusion. Findings are concerning for infection in the appropriate clinical setting. D/ / 10/20/2018 15:36:16 Wendy Maldonado MD / [facility] Interpreting Provider: Wendy Maldonado MD Consult Discharge Plan - Plan Referrals: Olesya Ventura, [employer] [Primary Care Provider] - (3) Urinary tract infection Qualifiers: Qualified Code(s): T83.511A - Infection and inflammatory reaction due to indwelling urethral catheter, initial encounter; N39.0 - Urinary tract infection, site not specified (5) Low back pain Qualifiers: Chronicity: chronic Back pain laterality: midline Sciatica presence: without sciatica Qualified Code(s): M54.5 - Low back pain; G89.29 - Other chronic pain (7) Hypothyroid Qualifiers: Hypothyroidism type: acquired Qualified Code(s): E03.9 - Hypothyroidism, unspecified
[2018-10-22] MEDS: *HR* Heparin 5,000 UNIT/ML VIAL SQ SCH ×2 (06:40→17:57)
[2018-10-22 08:46] LABS: Basophils # 0.1 K/mcL (0.0-0.2); Basophils % 0.4 %; Eosinophils # 0.3 K/mcL (0.0-0.6); Hematocrit 25.7 % (35.3-44.9); Hemoglobin 8.2 g/dL (11.5-15.4); Immature Granulocytes % 1.7 % (0-4); Lymphocytes # 2.1 K/mcL (0.6-4.6); Lymphocytes % 16.3 %; Mean Corpuscular HGB Conc 31.9 g/dL (31.6-35.5); Mean Corpuscular Hemoglobin 27.2 pg (28.0-33.3); Mean Corpuscular Volume 85.4 fL (83.0-100.0); Mean Platelet Volume 12.2 fL (9.4-12.4); Monocytes # 0.8 K/mcL (0.0-1.3); Monocytes % 6.6 %; Neutrophils # 9.2 K/mcL (1.6-8.9); Platelet Count 299 K/mcL (140-400); Red Blood Count 3.01 M/mcL (3.82-4.97); Red Cell Distribution Width 15.2 % (11.5-14.5)
[2018-10-22 09:05] LABS: BUN/Creatinine Ratio 24 (6-26); Blood Urea Nitrogen 17 mg/dL (8-23); Calcium 10.4 mg/dL (8.6-10.3); Carbon Dioxide 22 mEq/L (23-29); Chloride 104 mEq/L (98-107); Glucose 107 mg/dL (70-105); Osmolality,Calculated 278 (280-300); Potassium 3.9 mEq/L (3.5-5.1); Sodium 133 mEq/L (136-145); eGFR For Non-African Americans > 60 (> 60)
[2018-10-22] MEDS: Pregabalin 75 MG CAPSULE PO SCH ×2 (09:13→22:39)
[2018-10-22] MEDS: Celecoxib 100 MG CAPSULE PO SCH (09:13)
[2018-10-22 10:02] LABS: % Iron Saturation 9 % (15-50); Iron 19 mcg/dL (50-170); Transferrin 157 mg/dL (203-362)
[2018-10-22 10:19] LABS: Ferritin 247 ng/mL (10-120)
[2018-10-22 10:28] LABS: Folate > 22.3 ng/mL (3.0-16.0); Vitamin B12 916 pg/mL (250-1100)
--- NOTE | 2018-10-22 14:27 | Internal Med Progress Note ---
Hospitalist Progress Note - Encounter Date of Encounter: 10/22/18 Time of Encounter: 09:40 - Subjective Interval History: Patient lying down in bed. Follows verbal commands. Nonverbal at baseline. Has been evaluated by speech therapy and recommended cardiac diet. No fever or chills reported overnight. - Exam Vitals: Temp Pulse Resp BP Pulse Ox 97.8 F 72 17 110/63 96 10/22/18 07:59 10/22/18 10:30 10/22/18 10:30 10/22/18 10:30 10/22/18 10:30 Exam: General: Patient is alert, nonverbal at baseline but communicates with head nodding. ENT: Mucous membranes moist Respiratory: Decreased breath sounds at both bases Cardiovascular: Regular rate and rhythm. s1 and s2 normal No clicks, rubs, gallops, or murmurs. No pedal edema Abdomen: Abdomen is soft, nontender. Bowel sounds are present Musculoskeletal: Spontaneously moving all extremities Skin: Sacral decubitus ulcer present. Patient also has decubitus ulcers on her feet. Neuro: Alert oriented x 3 normal cranial nerves, no focal deficits - Assessment and Plan (1) Acute respiratory failure with hypoxia Current Visit: Yes Status: Acute Assessment and Plan: improving. Patient is currently on 2 L nasal cannula. (2) HCAP (healthcare-associated pneumonia) Current Visit: Yes Status: Acute Assessment and Plan: Patient is currently on broad-spectrum antibiotics. WBC count is trending down. Causative organism not known yet. Initially suspected of healthcare associated pneumonia. Patient did pass swallow evaluation. No clear signs of aspiration. Also location of the pneumonia does not suggest aspiration as cause. Blood cultures have been negative. We will check MRSA screen. If negative, will stop vancomycin. Patient complaining of cough. Will order Robitussin. Also order incentive spirometry. Moderate risk for complications. (3) Urinary tract infection Current Visit: Yes Status: Ruled-out Assessment and Plan: Urine culture shows no growth. Continue antibiotics to treat pneumonia (4) Hypothyroid Current Visit: Yes Status: Chronic Assessment and Plan: Continue levothyroxin (5) Decubitus ulcer of sacral region, stage 4 Current Visit: Yes Status: Chronic Assessment and Plan: Continue local wound care. Patient follows up with wound clinic. Wound care consult appreciated. (6) Low back pain Current Visit: Yes Status: Chronic Assessment and Plan: pain control. Continue Celebrex (7) Dysphagia Current Visit: Yes Status: Ruled-out Assessment and Plan: Patient evaluated by speech therapy and placed on regular cardiac diet. No further recommendations as indicated besides assistance from staff during meals and feeding. DVT Prophylaxis: On subcutaneous heparin - Time Spent with Patient Total time spent is greater than 50% in coordination of care (as documented) at patient's floor/unit and/or counseling patient: Internal Medicine: Result - Labs CBC & Chem 7: 10/22/18 08:28 10/22/18 08:28 Labs: Short CBC 10/22/18 Range/Units 08:28 WBC 12.7 H (4.3-11.1) K/mcL Hgb 8.2 L (11.5-15.4) g/dL Hct 25.7 L (35.3-44.9) % Plt Count 299 (140-400) K/mcL Neutrophils # 9.2 H (1.6-8.9) K/mcL BMP 10/22/18 08:28 Sodium 133 L Potassium 3.9 Chloride 104 Carbon Dioxide 22 L BUN 17 Creatinine 0.70 Glucose 107 H Calcium 10.4 H - ABG Interpretation ABG results: PT/INR, D-dimer PT 13.2 Seconds (9.4-12.1) H 10/20/18 14:54 Consult Discharge Plan - Plan Referrals: Olesya Ventura, FELT CUTTING MACHINE OPERATOR [Primary Care Provider] - (3) Urinary tract infection Qualifiers: Qualified Code(s): T83.511A - Infection and inflammatory reaction due to indwelling urethral catheter, initial encounter; N39.0 - Urinary tract infection, site not specified (4) Hypothyroid Qualifiers: Hypothyroidism type: acquired Qualified Code(s): E03.9 - Hypothyroidism, unspecified (6) Low back pain Qualifiers: Chronicity: chronic Back pain laterality: midline Sciatica presence: without sciatica Qualified Code(s): M54.5 - Low back pain; G89.29 - Other chronic pain (7) Dysphagia Qualifiers: Dysphagia type: oropharyngeal phase Qualified Code(s): R13.12 - Dysphagia, oropharyngeal phase
[2018-10-22] MEDS ORDERED: Sodium Ferric Gluconat/Sucrose 250 MG in 0.9 % Sodium Chloride 100 ML IVPB ONE (17:37)
[2018-10-23] MEDS: Piperacillin/Tazobactam 3.375 GM in 0.9 % Sodium Chloride Mini Bag 100 ML IVPB SCH ×3 (06:25→22:13)
[2018-10-23] MEDS: *HR* Heparin 5,000 UNIT/ML VIAL SQ SCH ×2 (06:25→18:19)
[2018-10-23 06:42] LABS: Basophils # 0.1 K/mcL (0.0-0.2); Basophils % 0.7 %; Eosinophils # 0.3 K/mcL (0.0-0.6); Eosinophils % 2.2 %; Hematocrit 24.9 % (35.3-44.9); Hemoglobin 8.4 g/dL (11.5-15.4); Lymphocytes # 2.3 K/mcL (0.6-4.6); Lymphocytes % 18.1 %; Mean Corpuscular HGB Conc 33.7 g/dL (31.6-35.5); Mean Platelet Volume 12.1 fL (9.4-12.4); Monocytes # 0.8 K/mcL (0.0-1.3); Monocytes % 6.3 %; Neutrophils # 8.7 K/mcL (1.6-8.9); Platelet Count 311 K/mcL (140-400); Red Cell Distribution Width 15.3 % (11.5-14.5); Segmented Neutrophils % 68.7 %
[2018-10-23 07:01] LABS: BUN/Creatinine Ratio 21 (6-26); Blood Urea Nitrogen 14 mg/dL (8-23); Calcium 10.4 mg/dL (8.6-10.3); Carbon Dioxide 23 mEq/L (23-29); Chloride 103 mEq/L (98-107); Glucose 127 mg/dL (70-105); Osmolality,Calculated 276 (280-300); Potassium 3.7 mEq/L (3.5-5.1); Sodium 132 mEq/L (136-145); eGFR For Non-African Americans > 60 (> 60)
[2018-10-23] MEDS ORDERED: Aminoglycoside Consult 1 EACH MC ONE (07:59)
[2018-10-23] MEDS: Celecoxib 100 MG CAPSULE PO SCH (08:50)
[2018-10-23] MEDS: Pregabalin 75 MG CAPSULE PO SCH ×2 (08:50→22:11)
--- NOTE | 2018-10-23 13:52 | Internal Med Progress Note ---
Hospitalist Progress Note - Encounter Date of Encounter: 10/23/18 Time of Encounter: 11:00 - Subjective Interval History: Patient is lying down in bed. Continues to have cough. Denies any fevers or chills overnight. Tolerating diet well. No nausea or vomiting reported. - Exam Vitals: Temp Pulse Resp BP Pulse Ox 97.7 F 102 20 146/85 100 10/23/18 11:20 10/23/18 11:20 10/23/18 11:20 10/23/18 11:20 10/23/18 11:20 Exam: General: Patient is alert, mild distress, oriented x 3, underweight ENT: Mucous membranes moist Respiratory: Decreased breath sounds at both bases Cardiovascular: Regular rate and rhythm. s1 and s2 normal No clicks, rubs, gallops, or murmurs. No pedal edema Abdomen: Abdomen is soft, nontender. Bowel sounds are present Musculoskeletal: Spontaneously moving all extremities Skin: Sacral decubitus ulcer present. Ulcers also noted on bilateral feet Neuro: Alert oriented x 3 normal cranial nerves, no focal deficits - Assessment and Plan (1) HCAP (healthcare-associated pneumonia) Current Visit: Yes Status: Acute Assessment and Plan: No organism identified as cause of pneumonia so far. Patient does not have much sputum production. MRSA screen is negative. (2) Acute respiratory failure with hypoxia Current Visit: Yes Status: Acute Assessment and Plan: Patient doing much better today. Is currently on room air. (3) Urinary tract infection Current Visit: Yes Status: Ruled-out Assessment and Plan: Urine culture shows no growth. (4) Hypothyroid Current Visit: Yes Status: Chronic Assessment and Plan: Continue levothyroxin (5) Decubitus ulcer of sacral region, stage 4 Current Visit: Yes Status: Chronic Assessment and Plan: With acute infection. Wound culture is growing gram-negative rods and strep pyogenes. Continue Zosyn. We will await final culture results. (6) Low back pain Current Visit: Yes Status: Chronic Assessment and Plan: Chronic and stable. Continue supportive care and pain control (7) Dysphagia Current Visit: Yes Status: Ruled-out Assessment and Plan: Patient tolerating regular diet. DVT Prophylaxis: On subcutaneous heparin - Time Spent with Patient Total time spent is greater than 50% in coordination of care (as documented) at patient's floor/unit and/or counseling patient: Internal Medicine: Result - Labs CBC & Chem 7: 10/23/18 06:07 10/23/18 06:07 Labs: Short CBC 10/23/18 Range/Units 06:07 WBC 12.6 H (4.3-11.1) K/mcL Hgb 8.4 L (11.5-15.4) g/dL Hct 24.9 L (35.3-44.9) % Plt Count 311 (140-400) K/mcL Neutrophils # 8.7 (1.6-8.9) K/mcL BMP 10/23/18 06:07 Sodium 132 L Potassium 3.7 Chloride 103 Carbon Dioxide 23 BUN 14 Creatinine 0.66 Glucose 127 H Calcium 10.4 H - ABG Interpretation ABG results: PT/INR, D-dimer PT 13.2 Seconds (9.4-12.1) H 10/20/18 14:54 Consult Discharge Plan - Plan Referrals: Olesya Ventura, WELDING LEAD BURNER [Primary Care Provider] - (3) Urinary tract infection Qualifiers: Qualified Code(s): T83.511A - Infection and inflammatory reaction due to indwelling urethral catheter, initial encounter; N39.0 - Urinary tract infection, site not specified (4) Hypothyroid Qualifiers: Hypothyroidism type: acquired Qualified Code(s): E03.9 - Hypothyroidism, unspecified (6) Low back pain Qualifiers: Chronicity: chronic Back pain laterality: midline Sciatica presence: without sciatica Qualified Code(s): M54.5 - Low back pain; G89.29 - Other chronic pain (7) Dysphagia Qualifiers: Dysphagia type: oropharyngeal phase Qualified Code(s): R13.12 - Dysphagia, oropharyngeal phase
[2018-10-23] MEDS ORDERED: Acetaminophen 325 MG TABLET PO PRN (18:00)
[2018-10-23] MEDS: amLODIPine 5 MG TABLET PO SCH (22:11)
[2018-10-24] MEDS: *HR* Heparin 5,000 UNIT/ML VIAL SQ SCH ×2 (05:15→18:03)
[2018-10-24] MEDS: Piperacillin/Tazobactam 3.375 GM in 0.9 % Sodium Chloride Mini Bag 100 ML IVPB SCH ×3 (05:18→22:10)
[2018-10-24] MEDS: Vitamin B Complex/Vit C/Vit E 1 EACH TABLET PO SCH (09:06)
[2018-10-24] MEDS: Aspirin 81 MG TAB.CHEW PO SCH (09:06)
[2018-10-24] MEDS: Pregabalin 75 MG CAPSULE PO SCH ×2 (09:06→22:09)
[2018-10-24] MEDS: Thiamine (B-1) 100 MG TABLET PO SCH (09:06)
[2018-10-24] MEDS: Folic Acid 1 MG TABLET PO SCH (09:06)
[2018-10-24] MEDS: Celecoxib 100 MG CAPSULE PO SCH (11:32)
--- NOTE | 2018-10-24 11:36 | Infectious Disease Consult ---
Infectious Disease-Consult - Encounter Date/Time Date of Encounter: 10/24/18 Time of Encounter: 11:32 - Data of Consult Patient: known to practice within the last 3 years Reason for consult: Sacral wound infection Consult date: 10/24/18 Requesting Physician: Mike Grant MD Primary Care Provider: Olesya Ventura CNP - HPI HPI: This Crosby is an 83-year-old female past medical history of CHF, COPD, CVA, GERD, hyperlipidemia, hypertension, osteoporosis, and chronic sacral decubitus ulcer. The patient was admitted to the hospital for for sepsis, acute kidney injury, pneumonia, and altered mental status. We are consulted for for further workup and treatment recommendations for sacral wound infection. Briefly, the patient is a 83-year-old female with past medical history as stated above. The patient is noted to twice a day services were consulted on her case in September at which time she was diagnosed with a sacral wound infection with MRSA. She was treated with for 2 weeks with IV vancomycin since there was no osteomyelitis. The patient is somewhat of a poor historian regarding the events leading up to her hospitalization, therefore, most of the permission is obtained from the medical record. Apparently, the patient was noted to have altered mental status and purulent discharge from her sacral decubitus ulcer since she was sent to the ER for evaluation. Upon arrival, she was afebrile hemodynamically stable. She had leukocytosis with neutrophilic predominance and acute kidney injury. LFTs, troponin, lactic acid were normal. Chest x-ray showed a small retrocardiac opacity and pleural effusion. CT of the abdomen and pelvis and head were negative. Blood cultures were obtained 2 sets. She was started empirically on IV Vanco and Zosyn and admitted to the hospital for fu rther evaluation. Since admission, the patient's leukocytosis has improved. Her white blood cell count is down to 12.6. Her acute kidney injury has resolved. Urinalysis was contaminated and the culture was negative. Wound cultures positive for Citrobacter, Morganella Morgagni, and group A strep. She had a MRSA nasal screen that was negative. Currently, she is on IV Zosyn. We have been asked to evaluate and make further recommendations. During my exam today, the patient states that overall she feels tired, but denies any specific complaints. Denies fevers, chills, rigors. Denies chest pain or shortness of breath. Reports a chronic dry cough that is at baseline. Denies congestion, earache, or sore throat. Denies nausea, vomiting, diarrhea, constipation. Reports 2 loose stools yesterday. She has a chronic indwelling Oleary catheter that remains patent. Reports mild pain at site of her decubitus ulcer. Denies any other back or extremity pain at this time. She tells me she is bedbound and does not ambulate. She denies any oral thrush or other skin lesions. Currently, the patient has been residing at a local extended care facility. She states she smokes 1 cigarette per day. Denies alcohol or illicit drug use. Denies chronic infectious diseases. Denies pain or animal exposures. Denies any recent travel outside the [facility]. - ROS Review of Systems: All systems reviewed and no additional remarkable complaints except as stated. - Results CBC & Chem 7: 10/25/18 07:51 10/25/18 07:51 - Exam Vitals: Temp Pulse Resp BP Pulse Ox 97.9 F 78 16 123/81 98 10/24/18 07:37 10/24/18 07:37 10/24/18 07:37 10/24/18 07:37 10/24/18 09:14 Exam: Head: Atraumatic, normal inspection, normocephalic. Eye: EOMI, PERRLA, no scleral icterus noted. ENT: Mucous membranes moist. No odontogenic infection noted. Neck: Normal inspection, no meningismus. Respiratory: Clear to auscultation. No rales, respiratory distress, rhonchi, or wheezes noted. Cardiovascular: Regular rate and rhythm, S1 and S2 audible. No murmurs, rubs, or gallops. GI: Soft, nondistended, normal bowel sounds. Oleary catheter noted to be draining clear yellow urine. Extremities: No joint swelling, pedal edema, or tenderness noted. Dressing noted to the left foot clean, dry, and intact. Contractures noted to the bilateral lower extremities. Back: Normal inspection. No vertebral tenderness noted. Sacral decubitus ulcer noted with moist pink wound bed with no necrosis or surrounding erythema. No purulent drainage or foul odor noted. Neurological: Alert, oriented 3, no focal deficits. Psychiatric: normal affect, normal mood. Skin: Dry, intact, warm. Normal color. No rashes. RX: Docusate [Colace] 100 mg PO DAILY PRN 11/02/16 [History] RX: Baclofen [Lioresal] 10 mg PO BID 12/01/16 [History] RX: Celecoxib [Celebrex] 100 mg PO DAILY 12/01/16 [History] RX: DULoxetine [Cymbalta] 30 mg PO DAILY 12/01/16 [History] RX: Levothyroxine [Synthroid] 150 mcg PO QAM 12/01/16 [History] RX: PARoxetine HCl [Paroxetine HCl] 10 mg PO QAM 12/01/16 [History] RX: Buspirone HCl [Buspar] 5 mg PO BID 07/04/18 [History] RX: Lisinopril 2.5 mg PO DAILY 07/04/18 [History] RX: Spironolactone 25 mg PO QAM 07/04/18 [History] RX: Amlodipine Besylate 5 mg PO HS 08/03/18 [History] RX: Acetaminophen [Tylenol] 650 mg PO Q6HR PRN tablet 08/09/18 [Rx] RX: Aspirin 81 mg PO DAILY tab.chew 08/09/18 [Rx] RX: Folic Acid 1 mg PO DAILY tablet 08/09/18 [Rx] RX: Thiamine (B-1) [Vitamin B-1] 100 mg PO DAILY tablet 08/09/18 [Rx] RX: Omeprazole [PriLOSEC] 20 mg PO DAILY 09/07/18 [History] RX: Collagenase Oint [Santyl] 1 applic TP DAILY PRN 10/21/18 [History] RX: Oxybutynin [Ditropan] 5 mg PO DAILY 10/21/18 [History] RX: Vitamin B Complex/Vit C/Vit E [Stresstab] 1 tab PO DAILY 10/21/18 [History] Cefdinir [Omnicef] 300 mg PO BID #10 capsule 10/27/18 [Rx] RX: GuaiFENesin/Dextromethorphan [Robitussin/Dm] 10 ml PO Q6HR PRN udc 10/27/18 [Rx] RX: Hydrocodone/Acetaminophen [[place] 10-325 Tablet] 1 tab PO Q6H PRN 5 Days #14 tablet 10/27/18 [Rx] RX: Lactobacillus Acidophilus [Acidophilus] 1 each PO BID #20 capsule 10/27/18 [Rx] RX: Pregabalin [Lyrica] 150 mg PO BID 15 Days #30 capsule 10/27/18 [Rx] Allergy/AdvReac Type Severity Reaction Status Date / Time Iodinated Contrast- Oral and Allergy See Verified 11/02/16 12:33 IV Dye Comments [Iodinated Contrast Media - Oral and] - Assessment and Plan (1) Neutrophilic leukocytosis Current Visit: No Status: Acute White blood cell count elevated at 26.9 thousand on admission. Likely secondary to sacral wound infection and pneumonia. Improved. SNOMED Code(s): 412834486, 043718595 (2) HCAP (healthcare-associated pneumonia) Current Visit: Yes Status: Acute Causative organism: Unclear. Chest x-ray showed small retrocardiac opacity. The patient does have a cough, but no other symptoms. MRSA screen was negative, but was checked after 24 hours of vancomycin. Evaluated by BRANCH LENDING OFFICER. No evidence of aspiration. Currently on Zosyn. SNOMED Code(s): 471450554, 031741132 (3) Decubitus ulcer of sacral region, stage 4 Current Visit: Yes Status: Chronic Location: Sacrum. Etiology: Likely multifactorial. Bedbound status plus poor nutrition less poor wound care previously plus noncompliance with treatment plan. Clinically, does not appear infected at this point, but apparently has purulent drainage prior to admission and she has already been on antibiotics for [address] abdomen and pelvis negative for OM, abscess, or gas. Wound cultures positive for Acinetobacter baumannii, Morganella morgannii, and group A strep. Wound care consulted and managing. Currently on IV Zosyn. SNOMED Code(s): 274146539, 400485849 (4) Altered mental status Current Visit: No Status: Resolved Likely secondary to infectious etiology. CT of the head was negative. Resolved. Qualifiers: Altered mental status type: unspecified Qualified Code(s): R41.82 - Altered mental status, unspecified SNOMED Code(s): 192363109 (5) Acute kidney injury Current Visit: No Status: Resolved Likely prerenal. Resolved. Continue to trend. Avoid nephrotoxins and dose adjust antibiotics. SNOMED Code(s): 22773387 (6) Wound of foot Current Visit: No Status: Chronic Clinically does not appear infected. Dressing changes per the wound care team. SNOMED Code(s): 650553140, 336145841 (7) Anemia Current Visit: No Status: Chronic Qualifiers: Anemia type: unspecified type Qualified Code(s): D64.9 - Anemia, unspecified SNOMED Code(s): 189389819 (8) Cervical myelopathy Current Visit: No Status: Chronic SNOMED Code(s): 631353617 - Recommendations Recommendations: Await blood cultures to finalize. Await final ID and sensitivities on wound culture. Check respiratory infectious panel. Check ESR and CRP. Check strep pneumococcal and legionella urinary antigens. Sputum culture if the patient is able to give an adequate specimen. Continue Zosyn 3.375 g IV every 8 hours for now. De-escalate antibiotics if/when able based on culture susceptibilities. Duration of treatment depends on the clinical picture. Monitor renal function for drug toxicity dose adjust antibiotics. Past Med Surg Social Fam HX - Past Medical History Medical history: CHF, COPD, CVA, GERD, hypertension, osteoporosis, thyroid disease Additional medical history: Lupus, Psychiatric history: no psych history - Past Surgical History Surgical History: hysterectomy, other Additional surgical history: per medical record - Social History Smoking Status: Current every day smoker Smokeless Tobacco Status: No Alcohol use: none Drug use: none - Family History Brother Hx Family Cancer: Yes (prostate) Mother Hx Family Cardiac Disorders: Yes ([place]) Consult Discharge Plan - Plan Instructions: Pneumonia ([place]) Additional Instructions: Please follow up with wound care in 1 week Referrals: Olesya Ventura OLIVE PITTER [Primary Care Provider] - (In 1-2 weeks) Prescriptions: Cefdinir [Omnicef] 300 mg PO BID #10 capsule RX: Hydrocodone/Acetaminophen [[place] 10-325 Tablet] 1 tab PO Q6H PRN 5 Days #14 tablet PRN Reason: Pain RX: Lactobacillus Acidophilus [Acidophilus] 1 each PO BID #20 capsule RX: Pregabalin [Lyrica] 150 mg PO BID 15 Days #30 capsule - Attending Attestation I have personally performed a face to face evaluation on this patient. I have reviewed and agree with the care plan. History and Exam by me shows: Patient is an 83-year-old woman with past medical history mentioned below including CHF, COPD, CVA hyperlipidemia hypertension with chronic sacral decu bitus ulcer present to the hospital with sepsis acute kidney injury pneumonia, status. We are consulted for antibiotic recommendations. Review of systems and physical exam as per above. Assessment and plan: Neutrophil leukocytosis Healthcare associated pneumonia He was also versus sacral region stage IV Altered mental status likely secondary to metabolic cephalopathy His acute kidney injury likely prerenal improved wound of the foot does not clinically appear infected Recommendations: Await blood cultures to finalize. Await final ID and sensitivities on wound culture. Check respiratory infectious panel. Check ESR and CRP. Check strep pneumococcal and legionella urinary antigens. Sputum culture if the patient is able to give an adequate specimen. Continue Zosyn 3.375 g IV every 8 hours for now. De-escalate antibiotics if/when able based on culture susceptibilities. Duration of treatment depends on the clinical picture. Monitor renal function for drug toxicity dose adjust antibiotics.
[2018-10-24 13:27] LABS: Adenovirus Not Detected (Not Detect); Bordetella Pertussis Not Detected (Not Detect); Chlamydophila pneumoniae Not Detected (Not Detect); Coronavirus 229E Not Detected (Not Detect); Coronavirus HKU1 Not Detected (Not Detect); Coronavirus NL63 Not Detected (Not Detect); Coronavirus OC43 Not Detected (Not Detect); Human Metapneumovirus Not Detected (Not Detect); Human Rhinovirus/Enterovirus Not Detected (Not Detect); Influenza A Subtype 2009 H1 Not Detected (Not Detect); Influenza A Untypeable Not Detected (Not Detect); Influenza B Not Detected (Not Detect); Mycoplasma pneumoniae Not Detected (Not Detect); Parainfluenza Virus 1 Not Detected (Not Detect); Parainfluenza Virus 2 Not Detected (Not Detect); Parainfluenza Virus 3 Not Detected (Not Detect); Parainfluenza Virus 4 Not Detected (Not Detect); Respiratory Syncytial Virus Not Detected (Not Detect)
--- NOTE | 2018-10-24 15:17 | Internal Med Progress Note ---
Hospitalist Progress Note - Encounter Date of Encounter: 10/24/18 Time of Encounter: 11:10 - Subjective Interval History: Patient lying down in bed. Denies any new complaints at this time. Her cough is improving. No fevers or chills reported overnight. - Exam Vitals: Temp Pulse Resp BP Pulse Ox 97.8 F 71 16 151/76 95 10/24/18 11:59 10/24/18 11:59 10/24/18 07:37 10/24/18 11:59 10/24/18 11:59 Exam: General: Patient is alert, mild distress, oriented x 3, thin built ENT: Mucous membranes moist Respiratory: Good respiratory effort. Normal breath sounds. No wheezing or crackles. Cardiovascular: Regular rate and rhythm. s1 and s2 normal No clicks, rubs, g allops, or murmurs. No pedal edema Abdomen: Abdomen is soft, nontender. Bowel sounds are present Musculoskeletal: Spontaneously moving all extremities Skin: warm, dry, intact. stage IV decubitus ulcer in the sacral region. Wound cleaned and bandaged. Decubitus ulcers also on the feet. Stable. Neuro: Alert oriented x 3 normal cranial nerves, no focal deficits - Assessment and Plan (1) HCAP (healthcare-associated pneumonia) Current Visit: Yes Status: Acute Assessment and Plan: No specific organism identified. Clinically patient is improving. Patient currently on Zosyn. Vancomycin stopped yesterday. (2) Decubitus ulcer of sacral region, stage 4 Current Visit: Yes Status: Chronic Assessment and Plan: With possible infection. Multi-organisms positive on wound cultures including Acinetobacter baumannii, Morganella morgannii, and group A strep. Continue local wound care. Consult infectious disease to help with management. (3) Acute respiratory failure with hypoxia Current Visit: Yes Status: Acute Assessment and Plan: Improving. Patient able to tolerate room air intermittently. (4) Urinary tract infection Current Visit: Yes Status: Ruled-out Assessment and Plan: Urine culture shows no growth. (5) Hypothyroid Current Visit: Yes Status: Chronic Assessment and Plan: Continue levothyroxin (6) Low back pain Current Visit: Yes Status: Chronic Assessment and Plan: Chronic low back pain. Pain controlled (7) Dysphagia Current Visit: Yes Status: Ruled-out DVT Prophylaxis: On subcutaneous heparin - Time Spent with Patient Total time spent is greater than 50% in coordination of care (as documented) at patient's floor/unit and/or counseling patient: Internal Medicine: Result - Labs CBC & Chem 7: 10/23/18 06:07 10/23/18 06:07 - ABG Interpretation ABG results: PT/INR, D-dimer PT 13.2 Seconds (9.4-12.1) H 10/20/18 14:54 - Impressions Impressions Head CT 10/20/18 15:00 IMPRESSION: No acute intracranial abnormality. Cerebral atrophy. Chronic small vessel ischemic changes. D/ / 10/20/2018 16:11:22 Berna Benites MD / dana Interpreting Provider: Berna Benites MD Consult Discharge Plan - Plan Referrals: Olesya Ventura CODING ADVISOR [Primary Care Provider] - (4) Urinary tract infection Qualifiers: Qualified Code(s): T83.511A - Infection and inflammatory reaction due to indwelling urethral catheter, initial encounter; N39.0 - Urinary tract infectio n, site not specified (5) Hypothyroid Qualifiers: Hypothyroidism type: acquired Qualified Code(s): E03.9 - Hypothyroidism, unspecified (6) Low back pain Qualifiers: Chronicity: chronic Back pain laterality: midline Sciatica presence: without sciatica Qualified Code(s): M54.5 - Low back pain; G89.29 - Other chronic pain (7) Dysphagia Qualifiers: Dysphagia type: oropharyngeal phase Qualified Code(s): R13.12 - Dysphagia, oropharyngeal phase
[2018-10-24] MEDS: amLODIPine 5 MG TABLET PO SCH (22:10)
[2018-10-25] MEDS: Piperacillin/Tazobactam 3.375 GM in 0.9 % Sodium Chloride Mini Bag 100 ML IVPB SCH ×3 (06:23→22:21)
[2018-10-25] MEDS: *HR* Heparin 5,000 UNIT/ML VIAL SQ SCH ×2 (06:23→17:14)
[2018-10-25 08:12] LABS: Basophils # 0.1 K/mcL (0.0-0.2); Basophils % 0.8 %; Eosinophils # 0.3 K/mcL (0.0-0.6); Eosinophils % 2.8 %; Hemoglobin 8.7 g/dL (11.5-15.4); Immature Granulocytes % 4.3 % (0-4); Lymphocytes # 2.3 K/mcL (0.6-4.6); Lymphocytes % 22.9 %; Mean Corpuscular HGB Conc 32.2 g/dL (31.6-35.5); Mean Corpuscular Hemoglobin 27.2 pg (28.0-33.3); Mean Corpuscular Volume 84.4 fL (83.0-100.0); Mean Platelet Volume 11.5 fL (9.4-12.4); Monocytes # 0.6 K/mcL (0.0-1.3); Monocytes % 5.8 %; Neutrophils # 6.3 K/mcL (1.6-8.9); Platelet Count 317 K/mcL (140-400); Red Cell Distribution Width 15.3 % (11.5-14.5); Segmented Neutrophils % 63.4 %
[2018-10-25 08:32] LABS: BUN/Creatinine Ratio 13 (6-26); Blood Urea Nitrogen 9 mg/dL (8-23); Calcium 10.9 mg/dL (8.6-10.3); Carbon Dioxide 28 mEq/L (23-29); Chloride 102 mEq/L (98-107); Glucose 95 mg/dL (70-105); Osmolality,Calculated 280 (280-300); Potassium 3.1 mEq/L (3.5-5.1); Sodium 136 mEq/L (136-145); eGFR For Non-African Americans > 60 (> 60)
[2018-10-25] MEDS: Pregabalin 75 MG CAPSULE PO SCH ×2 (09:50→22:21)
[2018-10-25] MEDS: Celecoxib 100 MG CAPSULE PO SCH (09:51)
[2018-10-25] MEDS: Vitamin B Complex/Vit C/Vit E 1 EACH TABLET PO SCH (09:55)
[2018-10-25] MEDS: Folic Acid 1 MG TABLET PO SCH (09:55)
[2018-10-25] MEDS: Aspirin 81 MG TAB.CHEW PO SCH (09:55)
[2018-10-25] MEDS: Thiamine (B-1) 100 MG TABLET PO SCH (09:56)
--- NOTE | 2018-10-25 10:50 | Internal Med Progress Note ---
Hospitalist Progress Note - Encounter Date of Encounter: 10/25/18 Time of Encounter: 09:00 - Subjective Interval History: Patient is lying down in bed. Feels good overall. Cough has improved. No chest pain or palpitations. No acute complaints overnight. - Exam Vitals: Temp Pulse Resp BP Pulse Ox 98.5 F 87 16 151/89 93 10/25/18 06:58 10/25/18 06:58 10/25/18 06:58 10/25/18 06:58 10/25/18 06:58 Exam: General: Patient is alert, no acute distress, thin built oriented x 3 ENT: Mucous membranes moist Respiratory: Decreased breath sounds at both bases. Cardiovascular: Regular rate and rhythm. s1 and s2 normal No clicks, rubs, gallops, or murmurs. No pedal edema Abdomen: Abdomen is soft, nontender. Bowel sounds are present Musculoskeletal: Spontaneously moving all extremities Skin: Decubitus ulcer in the sacral region, covered with foam. Ulcers on lower extremities also bandaged Neuro: Alert oriented x 3 normal cranial nerves, no focal deficits - Assessment and Plan (1) HCAP (healthcare-associated pneumonia) Current Visit: Yes Status: Acute Assessment and Plan: Patient is currently on Zosyn. Streptococcal and legionella antigens are n egative. Awaiting final culture results from blood (2) Decubitus ulcer of sacral region, stage 4 Current Visit: Yes Status: Chronic Assessment and Plan: With suspected infection. Multiple organisms growing from wound culture. Sensitivities are pending. Infectious disease consult appreciated. Continue Zosyn. (3) Acute respiratory failure with hypoxia Current Visit: Yes Status: Resolved Assessment and Plan: Now resolved. Patient is currently on room air (4) Urinary tract infection Current Visit: Yes Status: Ruled-out (5) Hypothyroid Current Visit: Yes Status: Chronic Assessment and Plan: Continue levothyroxin (6) Low back pain Current Visit: Yes Status: Chronic Assessment and Plan: Controlled. Continue Tylenol, Celebrex (7) Dysphagia Current Visit: Yes Status: Ruled-out DVT Prophylaxis: Continue subcutaneous heparin - Time Spent with Patient Total time spent is greater than 50% in coordination of care (as documented) at patient's floor/unit and/or counseling patient: Internal Medicine: Result - Labs CBC & Chem 7: 10/25/18 07:51 10/25/18 07:51 Labs: Short CBC 10/25/18 Range/Units 07:51 WBC 9.9 (4.3-11.1) K/mcL Hgb 8.7 L (11.5-15.4) g/dL Hct 27.0 L (35.3-44.9) % Plt Count 317 (140-400) K/mcL Neutrophils # 6.3 (1.6-8.9) K/mcL BMP 10/25/18 07:51 Sodium 136 Potassium 3.1 L Chloride 102 Carbon Dioxide 28 BUN 9 Creatinine 0.72 Glucose 95 Calcium 10.9 H - ABG Interpretation ABG results: PT/INR, D-dimer PT 13.2 Seconds (9.4-12.1) H 10/20/18 14:54 - Impressions Impressions Head CT 10/20/18 15:00 IMPRESSION: No acute intracranial abnormality. Cerebral atrophy. Chronic small vessel ischemic changes. D/ / 10/20/2018 16:11:22 Berna Benites MD / dana Interpreting Provider: Berna Benites MD Consult Discharge Plan - Plan Referrals: Olesya Ventura, [employer]PAR[facility] MERCHANDISER [Primary Care Provider] - (4) Urinary tract infection Qualifiers: Qualified Code(s): T83.511A - Infection and inflammatory reaction due to indwelling urethral catheter, initial encounter; N39.0 - Urinary tract infection, site not specified (5) Hypothyroid Qualifiers: Hypothyroidism type: acquired Qualified Code(s): E03.9 - Hypothyroidism, unspecified (6) Low back pain Qualifiers: Chronicity: chronic Back pain laterality: midline Sciatica presence: without sciatica Qualified Code(s): M54.5 - Low back pain; G89.29 - Other chronic pain (7) Dysphagia Qualifiers: Dysphagia type: oropharyngeal phase Qualified Code(s): R13.12 - Dysphagia, oropharyngeal phase
[2018-10-25] MEDS: amLODIPine 5 MG TABLET PO SCH (22:21)
[2018-10-26] MEDS: *HR* Heparin 5,000 UNIT/ML VIAL SQ SCH ×2 (05:06→18:39)
[2018-10-26] MEDS: Piperacillin/Tazobactam 3.375 GM in 0.9 % Sodium Chloride Mini Bag 100 ML IVPB SCH ×3 (05:07→21:36)
--- NOTE | 2018-10-26 09:54 | Internal Med Progress Note ---
Hospitalist Progress Note - Encounter Date of Encounter: 10/26/18 Time of Encounter: 09:20 - Subjective Interval History: Patient is lying down in bed. Denies any new complaints. No cough or shortness of breath. No fevers or chills overnight. - Exam Vitals: Temp Pulse Resp BP Pulse Ox 98.4 F 66 20 141/66 96 10/26/18 07:41 10/26/18 07:41 10/26/18 07:41 10/26/18 07:41 10/26/18 07:41 Exam: General: Patient is alert, no acute distress, thin built oriented x2 ENT: Mucous membranes moist Respiratory: Decreased breath sounds at both bases. No wheezes Cardiovascular: Regular rate and rhythm. s1 and s2 normal No clicks, rubs, gallops, or murmurs. No pedal edema Abdomen: Abdomen is soft, nontender. Bowel sounds are present Musculoskeletal: Spontaneously moving all extremities Skin: Decubitus ulcer in the sacral region, covered with foam. Ulcers on lower extremities also bandaged Neuro: Alert oriented x 2 normal cranial nerves, no focal deficits - Assessment and Plan (1) Decubitus ulcer of sacral region, stage 4 Current Visit: Yes Status: Chronic Assessment and Plan: With acute infection. Infectious disease following. Wound culture growing Acinetobacter, Morganella and Streptococcus pyogenes. Currently on Zosyn. Acinetobacter is resistant to Zosyn per sensitivity profile. We will wait for infectious disease recommendations. Clinically, patient is doing well. WBC count has trended down. (2) HCAP (healthcare-associated pneumonia) Current Visit: Yes Status: Acute Assessment and Plan: Patient is currently on Zosyn. Mainly to treat sacral wound infection. (3) Acute respiratory failure with hypoxia Current Visit: Yes Status: Resolved (4) Urinary tract infection Current Visit: Yes Status: Ruled-out (5) Hypothyroid Current Visit: Yes Status: Chronic Assessment and Plan: Continue levothyroxin (6) Low back pain Current Visit: Yes Status: Chronic Assessment and Plan: Pain is well controlled. (7) Dysphagia Current Visit: Yes Status: Ruled-out DVT Prophylaxis: Subcutaneous heparin - Time Spent with Patient Total time spent is greater than 50% in coordination of care (as documented) at patient's floor/unit and/or counseling patient: Internal Medicine: Result - Labs CBC & Chem 7: 10/25/18 07:51 10/25/18 07:51 - ABG Interpretation ABG results: PT/INR, D-dimer PT 13.2 Seconds (9.4-12.1) H 10/20/18 14:54 Consult Discharge Plan - Plan Referrals: Olesya Ventura, BERTIN [Primary Care Provider] - (4) Urinary tract infection Qualifiers: Qualified Code(s): T83.511A - Infection and inflammatory reaction due to indwelling urethral catheter, initial encounter; N39.0 - Urinary tract infection, site not specified (5) Hypothyroid Qualifiers: Hypothyroidism type: acquired Qualified Code(s): E03.9 - Hypothyroidism, unspecified (6) Low back pain Qualifiers: Chronicity: chronic Back pain laterality: midline Sciatica presence: without sciatica Qualified Code(s): M54.5 - Low back pain; G89.29 - Other chronic pain (7) Dysphagia Qualifiers: Dysphagia type: oropharyngeal phase Qualified Code(s): R13.12 - Dysphagia, oropharyngeal phase
[2018-10-26] MEDS: Vitamin B Complex/Vit C/Vit E 1 EACH TABLET PO SCH (10:32)
[2018-10-26] MEDS: Folic Acid 1 MG TABLET PO SCH (10:32)
[2018-10-26] MEDS: Potassium Effervescent 25 MEQ TABLET.EFF PO SCH (10:33)
[2018-10-26] MEDS: Pregabalin 75 MG CAPSULE PO SCH ×2 (10:34→21:36)
[2018-10-26] MEDS: Aspirin 81 MG TAB.CHEW PO SCH (10:35)
[2018-10-26] MEDS: Thiamine (B-1) 100 MG TABLET PO SCH (10:35)
[2018-10-26] MEDS: Celecoxib 100 MG CAPSULE PO SCH (10:35)
[2018-10-26] MEDS: amLODIPine 5 MG TABLET PO SCH (21:36)
[2018-10-27] MEDS: *HR* Heparin 5,000 UNIT/ML VIAL SQ SCH (06:00)
[2018-10-27] MEDS: Piperacillin/Tazobactam 3.375 GM in 0.9 % Sodium Chloride Mini Bag 100 ML IVPB SCH ×2 (06:05→17:43)
[2018-10-27] MEDS: Pregabalin 75 MG CAPSULE PO SCH (10:05)
[2018-10-27] MEDS: Thiamine (B-1) 100 MG TABLET PO SCH (10:05)
[2018-10-27] MEDS: Vitamin B Complex/Vit C/Vit E 1 EACH TABLET PO SCH (10:05)
[2018-10-27] MEDS: Celecoxib 100 MG CAPSULE PO SCH (10:05)
[2018-10-27] MEDS: Aspirin 81 MG TAB.CHEW PO SCH (10:06)
[2018-10-27] MEDS: Folic Acid 1 MG TABLET PO SCH (10:06)
[2018-10-27] MEDS: Potassium Effervescent 25 MEQ TABLET.EFF PO SCH (10:06)
--- NOTE | 2018-10-27 14:27 | Discharge Summary ---
- NOTES TO OUTPATIENT PROVIDER Notes to Outpatient Provider: Patient with a history of CHF, COPD, decubitus ulcer in the sacral region and lower extremities who was hospitalized here for healthcare associated pneumonia. She was treated with broad-spectrum antibiotics. In addition, ulcers were taken from her stage IV decubitus wound in the sacral region. Her respiratory symptoms improved with broad-spectrum antibiotics. However her sacral wound cultures began to grow multiple organisms including group A strep, Morganella, Acinetobacter. As such infectious disease was consulted. They have evaluated patient. Clinically, her stage IV decubitus wounds in the sacral region do not appear to be infected. She has been evaluated by infectious disease and at this time they are believed that the patient has ulcer colonized with these organisms. At this time they recommend continuing Omnicef to complete 14 day treatment course and then following up as outpatient. We will arrange for wound care follow-up. Patient will be discharged back to [facility] rehabilitation. Orders not resulted at time of discharge: Pending orders 10/20/18 14:49 ECG 12 lead ECG [ECG] Stat Date of Encounter: 10/27/18 Time of Encounter: 14:19 - Discharge Diagnosis (1) HCAP (healthcare-associated pneumonia) Priority: Primary Status: Acute (2) Decubitus ulcer of sacral region, stage 4 Priority: Secondary Status: Chronic (3) Acute respiratory failure with hypoxia Priority: Secondary Status: Resolved (4) Urinary tract infection Priority: Secondary Status: Ruled-out Qualifiers: Qualified Code(s): T83.511A - Infection and inflammatory reaction due to indwelling urethral catheter, initial encounter; N39.0 - Urinary tract infection, site not specified (5) Hypothyroid Priority: Secondary Status: Chronic Qualifiers: Hypothyroidism type: acquired Qualified Code(s): E03.9 - Hypothyroidism, unspecified (6) Low back pain Priority: Secondary Status: Chronic Qualifiers: Chronicity: chronic Back pain laterality: midline Sciatica presence: without sciatica Qualified Code(s): M54.5 - Low back pain; G89.29 - Other chronic pain (7) Dysphagia Priority: Secondary Status: Ruled-out Qualifiers: Dysphagia type: oropharyngeal phase Qualified Code(s): R13.12 - Dysphagia, oropharyngeal phase Hospital course: Ms. Denny is a 83 year old female Patient with a history of CHF, COPD, decubitus ulcer in the sacral region and lower extremities who was hospitalized here for healthcare associated pneumonia. She was treated with broad-spectrum antibiotics. In addition, ulcers were taken from her stage IV decubitus wound in the sacral region. Her respiratory symptoms improved with broad-spectrum antibiotics. However her sacral wound cultures began to grow multiple organisms including group A strep, Morganella, Acinetobacter. As such infectious disease was consulted. They have evaluated patient. Clinically, her stage IV decubitus wounds in the sacral region do not appear to be infected. She has been evaluated by infectious disease and at this time they are believed that the patient has ulcer colonized with these organisms. At this time they recommend continuing Omnicef to complete 14 day treatment course and then following up as outpatient. We will arrange for wound care follow-up. Patient will be discharged back to Skilled rehabilitation. Discharge discussed with: patient, nurse, clinical documentation consultant - Time Spent with Patient Total time spent providing and/or coordinating discharge services: Time spent: Greater than 30 minutes (32 min) - Discharge Medications Prescriptions: New GuaiFENesin/Dextromethorphan [Robitussin/Dm] 10 ml PO Q6HR PRN udc PRN Reason: Cough Cefdinir [Omnicef] 300 mg PO BID #10 capsule Lactobacillus Acidophilus [Acidophilus] 1 each PO BID #20 capsule Continue Levothyroxine [Synthroid] 150 mcg PO QAM PARoxetine HCl [Paroxetine HCl] 10 mg PO QAM DULoxetine [Cymbalta] 30 mg PO DAILY Baclofen [Lioresal] 10 mg PO BID Celecoxib [Celebrex] 100 mg PO DAILY Lisinopril 2.5 mg PO DAILY Spironolactone 25 mg PO QAM Buspirone HCl [Buspar] 5 mg PO BID Amlodipine Besylate 5 mg PO HS Acetaminophen [Tylenol] 650 mg PO Q6HR PRN tablet PRN Reason: Mild Pain/Fever Aspirin 81 mg PO DAILY tab.chew Folic Acid 1 mg PO DAILY tablet Thiamine (B-1) [Vitamin B-1] 100 mg PO DAILY tablet Omeprazole [PriLOSEC] 20 mg PO DAILY Vitamin B Complex/Vit C/Vit E [Stresstab] 1 tab PO DAILY Oxybutynin [Ditropan] 5 mg PO DAILY Collagenase Oint [Santyl] 1 applic TP DAILY PRN PRN Reason: left ankle wound Hydrocodone/Acetaminophen [[place] 10-325 Tablet] 1 tab PO Q6H PRN 5 Days #14 tablet PRN Reason: Pain Pregabalin [Lyrica] 150 mg PO BID 15 Days #30 capsule Docusate [Colace] 100 mg PO DAILY PRN PRN Reason: Constipation Home Medications: Docusate [Colace] 100 mg PO DAILY PRN 11/02/16 [History] Baclofen [Lioresal] 10 mg PO BID 12/01/16 [History] Celecoxib [Celebrex] 100 mg PO DAILY 12/01/16 [History] DULoxetine [Cymbalta] 30 mg PO DAILY 12/01/16 [History] Levothyroxine [Synthroid] 150 mcg PO QAM 12/01/16 [History] PARoxetine HCl [Paroxetine HCl] 10 mg PO QAM 12/01/16 [History] Buspirone HCl [Buspar] 5 mg PO BID 07/04/18 [History] Lisinopril 2.5 mg PO DAILY 07/04/18 [History] Spironolactone 25 mg PO QAM 07/04/18 [History] Amlodipine Besylate 5 mg PO HS 08/03/18 [History] Acetaminophen [Tylenol] 650 mg PO Q6HR PRN tablet 08/09/18 [Rx] Aspirin 81 mg PO DAILY tab.chew 08/09/18 [Rx] Folic Acid 1 mg PO DAILY tablet 08/09/18 [Rx] Thiamine (B-1) [Vitamin B-1] 100 mg PO DAILY tablet 08/09/18 [Rx] Omeprazole [PriLOSEC] 20 mg PO DAILY 09/07/18 [History] Collagenase Oint [Santyl] 1 applic TP DAILY PRN 10/21/18 [History] Oxybutynin [Ditropan] 5 mg PO DAILY 10/21/18 [History] Vitamin B Complex/Vit C/Vit E [Stresstab] 1 tab PO DAILY 10/21/18 [History] Cefdinir [Omnicef] 300 mg PO BID #10 capsule 10/27/18 [Rx] GuaiFENesin/Dextromethorphan [Robitussin/Dm] 10 ml PO Q6HR PRN udc 10/27/18 [Rx] Hydrocodone/Acetaminophen [[place] 10-325 Tablet] 1 tab PO Q6H PRN 5 Days #14 tablet 10/27/18 [Rx] Lactobacillus Acidophilus [Acidophilus] 1 each PO BID #20 capsule 10/27/18 [Rx] Pregabalin [Lyrica] 150 mg PO BID 15 Days #30 capsule 10/27/18 [Rx] Allergies/Adverse Reactions: Allergy/AdvReac Type Severity Reaction Status Date / Time Iodinated Contrast- Oral and Allergy See Verified 11/02/16 12:33 IV Dye Comments [Iodinated Contrast Media - Oral and] Date of admission: 10/20/18 18:50 Primary care physician: Olesya Ventura CNP Consults: 10/20/18 21:34 Consult to Wound Care [CONS] Routine Reason for Consult: pressure ulcer wounds Call Completed: Yes 10/24/18 11:03 Consult to Infectious Diseases [CONS] Routine Consulting Provider: Infectious Disease Laurita Reason for Consult: Sacral decubitus ulcer infection Time Notified: 11:03 Call Completed: Yes Discharging clinician: Mike Grant Anticipated date of discharge: 10/27/18 - Constitutional Vitals: Temp Pulse Resp BP Pulse Ox 98.3 F 69 18 117/92 100 10/27/18 07:47 10/27/18 07:47 10/27/18 07:47 10/27/18 07:47 10/27/18 07:47 General appearance: Present: cooperative, A&O X 1, pleasant, no acute distress, answers questions appropriately Exam: . - Respiratory Respiratory exam: Present: CTAB. Absent: accessory muscle use, rales, rhonchi, wheezes - Cardiovascular Cardiovascular exam: Present: RRR, +S1, +S2. Absent: diastolic murmur, gallop, rubs, systolic murmur - Skin Additional comments: Cubitus ulcers in the sacral region and on bilateral lower extremities bandaged with foam dressing - Patient Status Disposition: Transfer SNF Condition: Good Functional capacity at discharge: bed bound Overall status at discharge: patient is progressing back to baseline - Discharge Instructions Instructions: Pneumonia (DC) Follow Up With: Olesya Ventura CNP [Primary Care Provider] - (In 1-2 weeks) Forms: ED Satisfaction Letter, Work/School Release Additional Instructions: Please follow up with wound care in 1 week - Diet and Activity Activity: as per physical therapy Diet: low fat, low cholesterol, low salt diet
--- NOTE | 2018-10-27 14:39 | Physician Discharge Referral ---
ExtendedCare Referral Info Provider in Charge after Transfer: PCP Institutional Level of Care: Skilled - Diagnosis (1) HCAP (healthcare-associated pneumonia) Priority: Primary Status: Acute (2) Decubitus ulcer of sacral region, stage 4 Priority: Secondary Status: Chronic (3) Acute respiratory failure with hypoxia Priority: Secondary Status: Resolved (4) Urinary tract infection Priority: Secondary Status: Ruled-out (5) Hypothyroid Priority: Secondary Status: Chronic (6) Low back pain Priority: Secondary Status: Chronic (7) Dysphagia Priority: Secondary Status: Ruled-out Prognosis: Fair Aware of Diagnosis: Patient Aware of Prognosis: Patient - Transfer Medications Prescriptions: Cefdinir [Omnicef] 300 mg PO BID #10 capsule Hydrocodone/Acetaminophen [[place] 10-325 Tablet] 1 tab PO Q6H PRN 5 Days #14 tablet PRN Reason: Pain Lactobacillus Acidophilus [Acidophilus] 1 each PO BID #20 capsule Pregabalin [Lyrica] 150 mg PO BID 15 Days #30 capsule Home Medications: Docusate [Colace] 100 mg PO DAILY PRN 11/02/16 [History] Baclofen [Lioresal] 10 mg PO BID 12/01/16 [History] Celecoxib [Celebrex] 100 mg PO DAILY 12/01/16 [History] DULoxetine [Cymbalta] 30 mg PO DAILY 12/01/16 [History] Levothyroxine [Synthroid] 150 mcg PO QAM 12/01/16 [History] PARoxetine HCl [Paroxetine HCl] 10 mg PO QAM 12/01/16 [History] Buspirone HCl [Buspar] 5 mg PO BID 07/04/18 [History] Lisinopril 2.5 mg PO DAILY 07/04/18 [History] Spironolactone 25 mg PO QAM 07/04/18 [History] Amlodipine Besylate 5 mg PO HS 08/03/18 [History] Acetaminophen [Tylenol] 650 mg PO Q6HR PRN tablet 08/09/18 [Rx] Aspirin 81 mg PO DAILY tab.chew 08/09/18 [Rx] Folic Acid 1 mg PO DAILY tablet 08/09/18 [Rx] Thiamine (B-1) [Vitamin B-1] 100 mg PO DAILY tablet 08/09/18 [Rx] Omeprazole [PriLOSEC] 20 mg PO DAILY 09/07/18 [History] Collagenase Oint [Santyl] 1 applic TP DAILY PRN 10/21/18 [History] Oxybutynin [Ditropan] 5 mg PO DAILY 10/21/18 [History] Vitamin B Complex/Vit C/Vit E [Stresstab] 1 tab PO DAILY 10/21/18 [History] Cefdinir [Omnicef] 300 mg PO BID #10 capsule 10/27/18 [Rx] GuaiFENesin/Dextromethorphan [Robitussin/Dm] 10 ml PO Q6HR PRN udc 10/27/18 [Rx] Hydrocodone/Acetaminophen [[place] 10-325 Tablet] 1 tab PO Q6H PRN 5 Days #14 tablet 10/27/18 [Rx] Lactobacillus Acidophilus [Acidophilus] 1 each PO BID #20 capsule 10/27/18 [Rx] Pregabalin [Lyrica] 150 mg PO BID 15 Days #30 capsule 10/27/18 [Rx] Allergies/Adverse Reactions: Allergy/AdvReac Type Severity Reaction Status Date / Time Iodinated Contrast- Oral and Allergy See Verified 11/02/16 12:33 IV Dye Comments [Iodinated Contrast Media - Oral and] - Respiratory Orders Smoking Cessation: Smoking cessation has been advised. For more information, call the [place] Tobacco Quit Line at 8-355-MBRK-NOW. - Ancillary Orders May consult with Dentist, Hyperbaric Technologist, Fitting Room Inspector PRN - Advance Directives Code Status: Full Code - Mobility Orders Other (per PT) - Rehabiliation Orders Rehab Potential: Fair Rehab Orders: Evaluation for Physical Therapy, Evaluation for Occupational Therapy - Treatments Skin tear care topically daily PRN per policy - Diet Orders Cardiac CERTIFICATION: I certify that the transfer of the above named patient to an Extended Care Facility is necessary for the continuing treatment of the diagnosis listed. The above information is true and accurate reflection of patient's current conditio n. Confidential - Redisclosure prohibited without a patient's written consent.
[2018-10-27 15:37] VITALS: BP 162/93
--- NOTE | 2018-10-27 16:11 | Infectious Disease Progress No ---
ID Progress Note Date of Encounter: 10/27/18 Time of Encounter: 16:09 - Subjective Subjective: Patient seen and examined. No acute events noted overnight. Patient states overall she feels better and wants to leave. Denies fevers, chills, rigors. Denies chest pain, shortness of breath, or cough. Denies nausea, vomiting, diarrhea, or constipation. Reports chronic pain at the site of her decubitus ulcer. Denies oral thrush or new skin lesions. Oleary catheter remains patent. States her appetite is okay. - Objective CBC & Chem 7: 10/25/18 07:51 10/25/18 07:51 - Exam Vitals: Temp Pulse Resp BP Pulse Ox 98.2 F 98 18 162/93 100 10/27/18 15:30 10/27/18 15:30 10/27/18 15:30 10/27/18 15:30 10/27/18 15:30 Exam: Head: Atraumatic, normal inspection, normocephalic. Eye: EOMI, PERRLA, no scleral icterus noted. ENT: Mucous membranes moist. No odontogenic infection noted. Neck: Normal inspection, no meningismus. Respiratory: Clear to auscultation. No rales, respiratory distress, rhonchi, or wheezes noted. Cardiovascular: Regular rate and rhythm, S1 and S2 audible. No murmurs, rubs, or gallops. GI: Soft, nondistended, normal bowel sounds. Oleary catheter noted to be draining clear yellow urine. Extremities: No joint swelling, pedal edema, or tenderness noted. Dressing noted to the left foot clean, dry, and intact. Contractures noted to the bilateral lower extremities. Back: Normal inspection. No vertebral tenderness noted. Sacral decubitus ulcer noted with moist pink wound bed with no necrosis or surrounding erythema. No purulent drainage or foul odor noted. Neurological: Alert, oriented 3, no focal deficits. Psychiatric: normal affect, normal mood. Skin: Dry, intact, warm. Normal color. No rashes. - Assessment and Plan (1) Neutrophilic leukocytosis Current Visit: No Status: Resolved White blood cell count elevated at 26.9 thousand on admission. Likely secondary to sacral wound infection and pneumonia. Improved. SNOMED Code(s): 562586956, 253193096 (2) HCAP (healthcare-associated pneumonia) Current Visit: Yes Status: Acute Causative organism: Unclear. Chest x-ray showed small retrocardiac opacity. The patient does have a cough, but no other symptoms. MRSA screen was negative, but was checked after 24 hours of vancomycin. Evaluated by [employer]. No evidence of aspiration. Respiratory infectious panel negative. Strep pneumococcal and legionella urinary antigens negative. Currently on Zosyn (day 8). SNOMED Code(s): 368048654, 716342622 (3) Decubitus ulcer of sacral region, stage 4 Current Visit: Yes Status: Chronic Location: Sacrum. Etiology: Likely multifactorial. Bedbound status plus poor nutrition plus poor wound care previously plus noncompliance with treatment plan. Clinically, does not appear infected at this point, but apparently has purulent drainage prior to admission and she has already been on antibiotics for [address] abdomen and pelvis negative for OM, abscess, or gas. Wound cultures positive for Acinetobacter baumannii, Morganella morgannii, and group A strep. Acinetobacter vicente-resistant. Likely a colonizer since the patient has gotten better without treatment. Wound care consulted and managing. Currently on IV Zosyn. SNOMED Code(s): 900731589, 242548479 (4) Altered mental status Current Visit: No Status: Resolved Likely secondary to infectious etiology. CT of the head was negative. Resolved. Qualifiers: Altered mental status type: unspecified Qualified Code(s): R41.82 - Altered mental status, unspecified SNOMED Code(s): 733112537 (5) Acute kidney injury Current Visit: No Status: Resolved Likely prerenal. Resolved. Continue to trend. Avoid nephrotoxins and dose adjust antibiotics. SNOMED Code(s): 45131823 (6) Wound of foot Current Visit: No Status: Chronic Clinically does not appear infected. Dressing changes per the wound care team. SNOMED Code(s): 486191923, 424901796 (7) Anemia Current Visit: No Status: Chronic Qualifiers: Anemia type: unspecified type Qualified Code(s): D64.9 - Anemia, unspecified SNOMED Code(s): 568830220 (8) Cervical myelopathy Current Visit: No Status: Chronic SNOMED Code(s): 583513644 - Recommendations Recommendations: Dressing changes per the wound care team. Await blood cultures to finalize. Sputum culture if the patient is able to give an adequate specimen. Continue Zosyn 3.375 g IV every 8 hours for now. Duration of treatment depends on the clinical picture, but recommended a total of 14 days. Treat through 11/02/18. Can transition to Omnicef 300 mg by mouth twice a day when ready for discharge. Monitor renal function for drug toxicity dose adjust antibiotics. Consult Discharge Plan - Plan Instructions: Pneumonia (DC) Additional Instructions: Please follow up with wound care in 1 week Referrals: Isidro Ventura MD [Non-Partnered Physician] - 11/04/18 9:00 am Olesya Ventura CNP [Primary Care Provider] - (In 1-2 weeks) Prescriptions: Cefdinir [Omnicef] 300 mg PO BID #10 capsule Hydrocodone/Acetaminophen [[place] 10-325 Tablet] 1 tab PO Q6H PRN 5 Days #14 tablet PRN Reason: Pain Lactobacillus Acidophilus [Acidophilus] 1 each PO BID #20 capsule Pregabalin [Lyrica] 150 mg PO BID 15 Days #30 capsule
== END 2018-10-27 20:05 | DRG 193 ==
LOC: EMEROOARM 14:42 → 2NENU 14:42 → SUATTDRO 18:50
PROVIDERS: ADMIT Hospitalist; ATTEND Internal Medicine

== ENCOUNTER 2019-09-06 20:15 | Inpatient (IN) ==
[2019-09-06 20:42] LABS: Hematocrit 33.3 % (35.3-44.9); Hemoglobin 10.9 g/dL (11.5-15.4); Mean Corpuscular HGB Conc 32.7 g/dL (31.6-35.5); Mean Corpuscular Hemoglobin 29.7 pg (28.0-33.3); Mean Corpuscular Volume 90.7 fL (83.0-100.0); Mean Platelet Volume 12.2 fL (9.4-12.4); Platelet Count 193 K/mcL (140-400); Red Blood Count 3.67 M/mcL (3.82-4.97); White Blood Count 9.1 K/mcL (4.3-11.1)
[2019-09-06 20:46] LABS: Bilirubin,Urine Negative (Negative); Blood,Urine Negative (Negative); Clarity,Urine Clear (Clear); Color,Urine Yellow (Yellow); Glucose,Urine (UA) Normal (Normal); Ketones,Urine Negative (Negative); Leukocyte Esterase,Urine Negative (Negative); Nitrite,Urine Negative (Negative); Protein,Urine Negative (Neg-Trace); Specific Gravity,Urine 1.012 (1.010-1.025); Urobilinogen,Urine Normal (Normal)
[2019-09-06 20:49] LABS: Prothrombin Time 10.8 Seconds (9.4-12.1)
[2019-09-06 20:51] LABS: Activated Partial Thrombo Time 31.6 Seconds (26.0-36.0)
[2019-09-06 21:42] LABS: BUN/Creatinine Ratio 22 (6-26); Blood Urea Nitrogen 23 mg/dL (8-23); Calcium 9.6 mg/dL (8.6-10.3); Carbon Dioxide 26 mEq/L (23-29); Chloride 97 mEq/L (98-107); Glucose 77 mg/dL (70-105); Osmolality,Calculated 268 (280-300); Potassium 4.9 mEq/L (3.5-5.1); Sodium 128 mEq/L (136-145); Troponin I < 0.03 ng/mL (< 0.04); eGFR For African Americans > 60 (> 60); eGFR For Non-African Americans 50 (> 60)
[2019-09-06] MEDS ORDERED: Aspirin 325 MG TABLET PO ONE (22:16)
[2019-09-06] MEDS ORDERED: Naloxone 0.4 MG/ML INJ IVP PRN (22:44)
[2019-09-07] MEDS ORDERED: Simethicone 40 MG/0.6 ML MLS PO PRN (00:20)
[2019-09-07] MEDS ORDERED: *HR* HYDROcodone/Acet 5/325 mg TABLET PO PRN (00:20)
[2019-09-07] MEDS ORDERED: *HR* FentaNYL PATCH 25 MCG PATCH TD SCH (00:30)
[2019-09-07 01:53] LABS: Basophils # 0.1 K/mcL (0.0-0.2); Basophils % 0.8 %; Eosinophils # 0.3 K/mcL (0.0-0.6); Eosinophils % 3.6 %; Hematocrit 31.6 % (35.3-44.9); Hemoglobin 10.4 g/dL (11.5-15.4); Immature Granulocytes % 0.3 % (0-4); Lymphocytes # 3.8 K/mcL (0.6-4.6); Lymphocytes % 40.3 %; Mean Corpuscular HGB Conc 32.9 g/dL (31.6-35.5); Mean Corpuscular Hemoglobin 29.8 pg (28.0-33.3); Mean Corpuscular Volume 90.5 fL (83.0-100.0); Mean Platelet Volume 12.6 fL (9.4-12.4); Monocytes # 0.5 K/mcL (0.0-1.3); Monocytes % 5.1 %; Neutrophils # 4.7 K/mcL (1.6-8.9); Platelet Count 186 K/mcL (140-400); Red Blood Count 3.49 M/mcL (3.82-4.97); Red Cell Distribution Width 13.1 % (11.5-14.5); Segmented Neutrophils % 49.9 %; White Blood Count 9.4 K/mcL (4.3-11.1)
[2019-09-07] MEDS: Baclofen 10 MG TABLET PO SCH ×4 (01:58→18:06)
[2019-09-07 02:12] LABS: BUN/Creatinine Ratio 21 (6-26); Blood Urea Nitrogen 22 mg/dL (8-23); Calcium 9.6 mg/dL (8.6-10.3); Carbon Dioxide 27 mEq/L (23-29); Chloride 97 mEq/L (98-107); Glucose 87 mg/dL (70-105); Osmolality,Calculated 275 (280-300); Potassium 4.4 mEq/L (3.5-5.1); Sodium 131 mEq/L (136-145); eGFR For African Americans > 60 (> 60); eGFR For Non-African Americans 51 (> 60)
[2019-09-07] MEDS: *HR* Heparin 5,000 UNIT/ML VIAL SQ SCH ×3 (05:28→22:07)
[2019-09-07] MEDS ORDERED: Aspirin 81 MG TAB.CHEW PO SCH (09:00)
[2019-09-07] MEDS: PARoxetine 20 MG TABLET PO SCH (09:37)
[2019-09-07] MEDS: Vitamin B Complex/Vit C/Vit E 1 EACH TABLET PO SCH (09:37)
[2019-09-07] MEDS: Sennosides 8.6 MG TABLET PO SCH (09:37)
[2019-09-07] MEDS: lisinopriL 5 MG TABLET PO SCH (09:38)
[2019-09-07] MEDS: Celecoxib 100 MG CAPSULE PO SCH (09:38)
[2019-09-07] MEDS: Lactobacillus 1 EACH CAP.SPRINK PO SCH ×2 (09:38→22:07)
[2019-09-07] MEDS: Thiamine (B-1) 100 MG TABLET PO SCH (09:38)
[2019-09-07] MEDS: Spironolactone 25 MG TABLET PO SCH (09:38)
[2019-09-07] MEDS: Folic Acid 1 MG TABLET PO SCH (09:38)
[2019-09-07] MEDS: Pregabalin 75 MG CAPSULE PO SCH ×2 (09:39→22:07)
[2019-09-07] MEDS ORDERED: amLODIPine 5 MG TABLET PO SCH (21:00)
[2019-09-08] MEDS: Baclofen 10 MG TABLET PO SCH ×3 (00:37→13:12)
[2019-09-08] MEDS: *HR* Heparin 5,000 UNIT/ML VIAL SQ SCH ×2 (05:32→13:12)
[2019-09-08 06:28] LABS: Basophils # 0.1 K/mcL (0.0-0.2); Basophils % 0.7 %; Eosinophils # 0.3 K/mcL (0.0-0.6); Eosinophils % 3.3 %; Hematocrit 30.1 % (35.3-44.9); Immature Granulocytes % 0.2 % (0-4); Lymphocytes % 34.9 %; Mean Corpuscular HGB Conc 33.2 g/dL (31.6-35.5); Mean Corpuscular Hemoglobin 30.1 pg (28.0-33.3); Mean Corpuscular Volume 90.7 fL (83.0-100.0); Mean Platelet Volume 12.3 fL (9.4-12.4); Monocytes # 0.5 K/mcL (0.0-1.3); Neutrophils # 4.7 K/mcL (1.6-8.9); Platelet Count 175 K/mcL (140-400); Red Blood Count 3.32 M/mcL (3.82-4.97); Red Cell Distribution Width 12.9 % (11.5-14.5); Segmented Neutrophils % 54.9 %; White Blood Count 8.5 K/mcL (4.3-11.1)
[2019-09-08 06:44] LABS: BUN/Creatinine Ratio 20 (6-26); Blood Urea Nitrogen 21 mg/dL (8-23); Calcium 9.2 mg/dL (8.6-10.3); Carbon Dioxide 26 mEq/L (23-29); Chloride 98 mEq/L (98-107); Glucose 93 mg/dL (70-105); Osmolality,Calculated 269 (280-300); Potassium 4.5 mEq/L (3.5-5.1); Sodium 128 mEq/L (136-145); eGFR For African Americans > 60 (> 60); eGFR For Non-African Americans 51 (> 60)
[2019-09-08] MEDS ORDERED: Aspirin 81 MG TAB.CHEW PO SCH (09:00)
[2019-09-08] MEDS: Spironolactone 25 MG TABLET PO SCH (10:32)
[2019-09-08] MEDS: Pregabalin 75 MG CAPSULE PO SCH (10:32)
[2019-09-08] MEDS: Sennosides 8.6 MG TABLET PO SCH (10:32)
[2019-09-08] MEDS: Vitamin B Complex/Vit C/Vit E 1 EACH TABLET PO SCH (10:33)
[2019-09-08] MEDS: Celecoxib 100 MG CAPSULE PO SCH (10:33)
[2019-09-08] MEDS: lisinopriL 5 MG TABLET PO SCH (10:33)
[2019-09-08] MEDS: Thiamine (B-1) 100 MG TABLET PO SCH (10:33)
[2019-09-08] MEDS: Lactobacillus 1 EACH CAP.SPRINK PO SCH (10:33)
[2019-09-08] MEDS: PARoxetine 20 MG TABLET PO SCH (10:33)
[2019-09-08] MEDS: Folic Acid 1 MG TABLET PO SCH (10:34)
[2019-09-08 11:28] VITALS: BP 99/64
== END 2019-09-08 15:23 | DRG 69 ==
LOC: EMEROOARM 20:15 → 3BNU 20:15 → SUATTDRO 23:10 → 3BNU 23:41
PROVIDERS: ADMIT Student in an Organized Health Care Education/Training Program; ATTEND Internal Medicine

== ENCOUNTER 2020-08-07 04:33 | Observation (INO) ==
[2020-08-07] MEDS ORDERED: *HR* FentaNYL (PF) 100 MCG/2 ML VIAL IVP ONE ×2 (04:46→04:49)
[2020-08-07 05:25] LABS: Basophils % 0.6 %; Eosinophils # 0.1 K/mcL (0.0-0.6); Hematocrit 37.8 % (35.3-44.9); Hemoglobin 11.8 g/dL (11.5-15.4); Immature Granulocytes % 0.6 % (0-4); Lymphocytes # 2.1 K/mcL (0.6-4.6); Lymphocytes % 29.2 %; Mean Corpuscular HGB Conc 31.2 g/dL (31.6-35.5); Mean Corpuscular Volume 86.5 fL (83.0-100.0); Mean Platelet Volume 12.1 fL (9.4-12.4); Monocytes # 0.5 K/mcL (0.0-1.3); Monocytes % 6.4 %; Neutrophils # 4.4 K/mcL (1.6-8.9); Platelet Count 167 K/mcL (140-400); Red Blood Count 4.37 M/mcL (3.82-4.97); Red Cell Distribution Width 16.5 % (11.5-14.5); Segmented Neutrophils % 62.2 %
[2020-08-07 05:46] LABS: BUN/Creatinine Ratio 18 (6-26); Blood Urea Nitrogen 14 mg/dL (8-23); Calcium 9.5 mg/dL (8.6-10.3); Carbon Dioxide 26 mEq/L (23-29); Chloride 99 mEq/L (98-107); Glucose 110 mg/dL (70-105); Osmolality,Calculated 281 (280-300); Potassium 3.7 mEq/L (3.5-5.1); Sodium 135 mEq/L (136-145); eGFR For African Americans > 60 (> 60); eGFR For Non-African Americans > 60 (> 60)
[2020-08-07] MEDS ORDERED: Naloxone 0.4 MG/ML INJ IVP PRN (07:19)
[2020-08-07] MEDS ORDERED: Acetaminophen 325 MG TABLET PO PRN (07:32)
[2020-08-07] MEDS ORDERED: Simethicone 80 MG TAB.CHEW PO PRN (09:20)
[2020-08-07] MEDS ORDERED: *HR* FentaNYL PATCH 25 MCG PATCH TD SCH (09:30)
[2020-08-07] MEDS: Baclofen 10 MG TABLET PO SCH ×3 (10:26→22:13)
[2020-08-07] MEDS ORDERED: Povidone-Iodine 45 ML, Sodium Chloride IRRigation 1,000 ML IR ONE (10:45)
[2020-08-07] MEDS ORDERED: TOTAL JOINT MIXTURE (100ML) INTRAART ONE (10:45)
[2020-08-07 11:48] LABS: Adenovirus Not Detected (Not Detect); Bordetella Pertussis Not Detected (Not Detect); Chlamydophila pneumoniae Not Detected (Not Detect); Coronavirus 229E Not Detected (Not Detect); Coronavirus HKU1 Not Detected (Not Detect); Coronavirus NL63 Not Detected (Not Detect); Coronavirus OC43 Not Detected (Not Detect); Human Metapneumovirus Not Detected (Not Detect); Human Rhinovirus/Enterovirus Not Detected (Not Detect); Influenza A Subtype 2009 H1 Not Detected (Not Detect); Influenza B Not Detected (Not Detect); Mycoplasma pneumoniae Not Detected (Not Detect); Parainfluenza Virus 1 Not Detected (Not Detect); Parainfluenza Virus 2 Not Detected (Not Detect); Parainfluenza Virus 3 Not Detected (Not Detect); Parainfluenza Virus 4 Not Detected (Not Detect); Respiratory Syncytial Virus Not Detected (Not Detect); SARS-CoV-2 Not Detected (Not Detect)
[2020-08-07 17:52] LABS: Bacteria,Urine Few per hpf (None-Few); Bilirubin,Urine Negative (Negative); Blood,Urine Negative (Negative); Clarity,Urine Turbid (Clear); Color,Urine Yellow (Yellow); Glucose,Urine (UA) Normal (Normal); Ketones,Urine Trace mg/dL (Negative); Leukocyte Esterase,Urine Large (Negative); Mucus,Urine Few per lpf (None-Few); Nitrite,Urine Negative (Negative); Protein,Urine Trace mg/dL (Neg-Trace); RBC,Urine 0-3 per hpf (0-3); Specific Gravity,Urine 1.013 (1.010-1.025); Squamous Epithelial Cell,Urine Few per hpf (None-Few); Urobilinogen,Urine Normal (Normal); WBC,Urine TNTC per hpf (0-3)
[2020-08-07] MEDS ORDERED: amLODIPine 5 MG TABLET PO SCH (21:00)
[2020-08-07] MEDS: Pregabalin 75 MG CAPSULE PO SCH (22:13)
[2020-08-07] MEDS: *HR* HYDROmorphone (PF) 1 MG/ML SYRINGE IVP PRN (22:14)
[2020-08-07] MEDS: *HR* Heparin 5,000 UNIT/ML VIAL SQ SCH (22:23)
[2020-08-08] MEDS: cefTRIAXone 1,000 MG in Water for inj. (sterile) 10 ML IVP SCH ×2 (00:16→09:11)
[2020-08-08 01:47] LABS: Hematocrit 31.9 % (35.3-44.9); Mean Corpuscular Hemoglobin 27.9 pg (28.0-33.3); Mean Corpuscular Volume 87.4 fL (83.0-100.0); Mean Platelet Volume 12.2 fL (9.4-12.4); Platelet Count 139 K/mcL (140-400); Red Blood Count 3.65 M/mcL (3.82-4.97); Red Cell Distribution Width 16.4 % (11.5-14.5); White Blood Count 8.3 K/mcL (4.3-11.1)
[2020-08-08 01:48] LABS: Hemoglobin 10.2 g/dL (11.5-15.4)
[2020-08-08 02:08] LABS: BUN/Creatinine Ratio 18 (6-26); Blood Urea Nitrogen 12 mg/dL (8-23); Calcium 9.1 mg/dL (8.6-10.3); Carbon Dioxide 26 mEq/L (23-29); Chloride 104 mEq/L (98-107); Glucose 89 mg/dL (70-105); Osmolality,Calculated 285 (280-300); Potassium 3.7 mEq/L (3.5-5.1); Sodium 138 mEq/L (136-145); eGFR For African Americans > 60 (> 60); eGFR For Non-African Americans > 60 (> 60)
[2020-08-08] MEDS: *HR* HYDROmorphone (PF) 1 MG/ML SYRINGE IVP PRN (03:57)
[2020-08-08] MEDS: Baclofen 10 MG TABLET PO SCH ×3 (03:58→14:28)
[2020-08-08] MEDS: *HR* Heparin 5,000 UNIT/ML VIAL SQ SCH ×2 (05:07→17:14)
[2020-08-08] MEDS ORDERED: Sennosides 8.6 MG TABLET PO SCH (09:00)
[2020-08-08] MEDS ORDERED: Aspirin 81 MG TAB.CHEW PO SCH (09:00)
[2020-08-08] MEDS ORDERED: Celecoxib 100 MG CAPSULE PO SCH (09:00)
[2020-08-08] MEDS ORDERED: PARoxetine 10 MG TABLET PO SCH (09:00)
[2020-08-08] MEDS ORDERED: Thiamine (B-1) 100 MG TABLET PO SCH (09:00)
[2020-08-08] MEDS: Pregabalin 75 MG CAPSULE PO SCH (09:12)
[2020-08-08 15:39] VITALS: BP 119/73
== END 2020-08-08 18:00 ==
LOC: 3NENU 04:33 → EMEROOARM 04:33 → 3NENU 08:48
PROVIDERS: ADMIT Student in an Organized Health Care Education/Training Program; ATTEND Student in an Organized Health Care Education/Training Program